=== PATIENT | female | born 1965 | race Caucasian/White ===

== ENCOUNTER 2022-09-25 14:03 | Outpatient (AMB) | payer OTHER, SELFPAY ==
--- NOTE | 2022-09-25 14:15 | MHC.OFFVIS ---
Intake Vital Signs 09/25/22 14:28 Height 5 ft 7 in Weight 197 lb 8 oz BMI 30.9 BP 164/74 H Blood Pressure Location Lt brachial Position Sitting Respiration 18 Pulse 80 Pulse Source Pulse Oximeter Pulse Oximetry (%) 97 Oxygen Delivery Method Room Air Intake Visit Reasons: Neck pain Allergies doxycycline Allergy (Intermediate, Verified 09/25/22 10:47) Stomach Upset ciprofloxacin [From Cipro] Adverse Reaction (Intermediate, Verified 09/25/22 10:47) Stomach Upset duloxetine [From Cymbalta] Adverse Reaction (Intermediate, Verified 09/25/22 10:47) Nausea hydromorphone [From Dilaudid] Adverse Reaction (Intermediate, Verified 09/25/22 10:47) Confusion morphine Adverse Reaction (Intermediate, Verified 09/25/22 10:47) Confusion HPI HPI Comments History of Present Illness Details Elodia is a very pleasant 56-year-old female who presents to the office today for evaluation and management of her chronic neck pain. She has been suffering with this pain for many years but was recently exacerbated by a fall about a month and a half ago. Pain in both sides of the neck though worse on the right with radiation down the right arm to the level of the forearm. She also reports weakness of the right arm and numbness, tingling, pins and needles. She reports the pain is exacerbated with movement and staying in one position for extended period of time. 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 She has chronic headaches and when her neck pain is exacerbated it will cause severe headaches. Patient has tried physical therapy in the past and found it was not helpful and her co-pay was cost prohibitive; she does continue with home exercise program as tolerated. She has also tried chiropractor and acupuncture without relief. She is currently taking tizanidine which she notices the benefit of improved sleep at night. She has diclofenac gel that she has been using without change in her pain and she is on chronic opioid therapy, Vicodin, that she takes for ulcerative colitis with no secondary benefit of neck pain improvement. Patient is using topical nonsteroidal anti-inflammatory medication and states that due to her ulcerative colitis she was advised by Gastroenterology to avoid oral nonsteroidal anti-inflammatory medications. Patient had an x-ray of her cervical spine 09/09/2022, results as per below. Patient also reports history of chronic lower back pain with radiation down the right leg. She states that she had MRI approximately 2 years ago and she used to receive injections at [facility]. She did not find any relief with the injections and ultimately unsatisfied with there treatment and did not go back. In terms of muscle damage condition is described as aching, hot, burning, tingling, pins and needles. Pain is negatively impacting her enjoyment of life, general activity, mood, normal work, recreational activities, sleep and mobility. Patient denies implantable devices, pacemaker, defibrillator. [facility] Medical History (Updated 09/25/22 @ 16:02 by Elizabeth Shen, LOCAL GOVERNMENT LEGISLATOR, CONTRACT ADMIN) Current mild episode of major depressive disorder without prior episode Fibromyalgia Hypercholesteremia Neck pain Nonalcoholic fatty liver Osteoarthritis Paresthesia Rosacea Ulcerative colitis Review of Systems Const All systems reviewed & are unremarkable except as noted in HPI and below Physical Exam General: awake, alert, oriented. Answers questions appropriately. Fully engaged in examination. Skin: warm, dry, intact without visible rashes or lesions. HEENT: Normocephalic. Conjuntivae clear without exudate. Sclera non-icteric. Hearing intact. Cardiac: External chest normal in appearance. Respiratory: No signs of trauma. No signs of respiratory distress. No cough, audible wheezing or stridor. Abdomen: without gross distension. Neurological: Oriented to person, place, time and situation. Thought process intact. No gait abnormalities appreciated. Psychiatric: Appropriate mood and affect. Good judgment and insight. Back/Spine/Pelvis Other: Cervical Spine: Visible inspection without gross abnormality Nontender to palpation over paraspinal muscles Nontender to palpation over cervical vertebrae Decreased cervical ROM in all planes Spurling compression test positive Elvey's tension test positive Right Lhermitte's test negative. BUE strength 5/5 DTR symmetrical and intact bilaterally. 2+ radial pulses. Results Reviewed Results Reviewed: 09/09/2022 Assessment & Plan Assessment & Plan (1) Cervical radiculopathy: Code(s): M54.12 - Radiculopathy, cervical region (2) Arthropathy of cervical facet joint: Code(s): M47.812 - Spondylosis without myelopathy or radiculopathy, cervical region Plan Elodia is a very pleasant 56 year old female who presented to the office today for evaluation and management of her chronic neck pain. History, physical exam and provocative testing most consistent with right cervical radiculopathy and cervical facet arthropathy. Will obtain MRI C/S without contrast for further evaluation, she prefers to go to [facility] d/t proximity to her home and work. Tens unit from [employer] ordered, patient was instructed on use. She has contact information for [employer] and will expect a call to schedule delivery. C/W muscle relaxers and topical NSAIDs as prescribed. C/W Home exercise program. Discussed options for treatment including diagnostic interventional testing, epidural steroid injections, peripheral nerve stimulation with Sprint, RFA and more permanent neuromodulation. Informational pamphlets provided. Patient will follow up here after MRI to review results. Plan for fluoroscopy guided diagnostic C4, C5, C6 MBBs with local anesthetic if MRI findings do not warrant neurosurgical evaluation. All questions and concerns have been answered and patient agrees with the plan. Follow up after MRI, sooner if needed. Orders: Orders MR cervical spine wo con Today M47.812 - Spondylosis without myelopathy or radiculopathy, cervical region, M54.12 - Radiculopathy, cervical region Coding Level of Care Code New Pt Level 4 (98638) Diagnoses Cervical radiculopathy M54.12 Arthropathy of cervical facet joint M47.812
[2022-09-25 14:28] VITALS: BP 164/74; PULSE 80; RESP 18; O2SAT 97; BMI 30.9
== END 2022-09-25 15:14 | disposition home or self-care (01) ==
PROVIDERS: PCP Internal Medicine; Visit Provider Registered Nurse Emergency
DX: M47.22 Other spondylosis with radiculopathy, cervical region (principal)
CPT/HCPCS: 99204

== ENCOUNTER → 2022-09-25 14:03 | Outpatient (BNVA) | payer OTHER, SELFPAY | PROVIDERS: PCP Internal Medicine; Visit Provider Registered Nurse Emergency ==

== ENCOUNTER 2022-11-20 10:44 | Outpatient (AMB) | payer OTHER, SELFPAY ==
[2022-11-20 10:52] VITALS: BP 136/76; PULSE 105; RESP 16; O2SAT 94; BMI 32.6
--- NOTE | 2022-11-20 10:52 | A.OFFVIS_ITS ---
Intake Vital Signs 3 11/20/22 10:52 Height 5 ft 7 in Weight 208 lb 2 oz BMI 32.6 BP 136/76 Blood Pressure Location Rt radial Position Sitting Respiration 16 Pulse 105 H Pulse Source Pulse Oximeter Pulse Oximetry (%) 94 Oxygen Delivery Method Room Air Intake Visit Reasons: FOLLOW UP AFTER MRI Allergies doxycycline Allergy (Intermediate, Verified 11/20/22 10:52) Stomach Upset ciprofloxacin [From Cipro] Adverse Reaction (Intermediate, Verified 11/20/22 10:52) Stomach Upset duloxetine [From Cymbalta] Adverse Reaction (Intermediate, Verified 11/20/22 10:52) Nausea hydromorphone [From Dilaudid] Adverse Reaction (Intermediate, Verified 11/20/22 10:52) Confusion morphine Adverse Reaction (Intermediate, Verified 11/20/22 10:52) Confusion HPI HPI Comments 2 History of Present Illness0 Details Elodia presents back to the office today for follow up after MRI. MRI reviewed with patient, results as per below. She continues to endorse bilateral neck pain, rated today as 6/10. Pain is worse on the right, but since last visit she is no longer experiencing RUE weakness, pain, numbness or tingling. She does report some headaches from the neck pain. Pain is improved some with TENS unit, but returns when she the stimulation is off. Tizanidine helps with sleep, but makes her drowsy so she does not take it during the day. Patient suffers from polyarthralgia, she has tried baclofen, gabapentin and lyrica in the past. She did not tolerate any of them. Her Director Of Channel Marketing retired, she is not currently under care of any specialist for this. Prior: Elodia is a very pleasant 56-year-old female who presents to the office today for evaluation and management of her chronic neck pain. She has been suffering with this pain for many years but was recently exacerbated by a fall about a month and a half ago. Pain in both sides of the neck though worse on the right with radiation down the right arm to the level of the forearm. She also reports weakness of the right arm and numbness, tingling, pins and needles. She reports the pain is exacerbated with movement and staying in one position for extended period of time. 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 She has chronic headaches and when her neck pain is exacerbated it will cause severe headaches. Patient has tried physical therapy in the past and found it was not helpful and her co-pay was cost prohibitive; she does continue with home exercise program as tolerated. She has also tried chiropractor and acupuncture without relief. She is currently taking tizanidine which she notices the benefit of improved sleep at night. She has diclofenac gel that she has been using without change in her pain and she is on chronic opioid therapy, Vicodin, that she takes for ulcerative colitis with no secondary benefit of neck pain improvement. Patient is using topical nonsteroidal anti-inflammatory medication and states that due to her ulcerative colitis she was advised by Gastroenterology to avoid oral nonsteroidal anti-inflammatory medications. Patient had an x-ray of her cervical spine 09/09/2022, results as per below. Patient also reports history of chronic lower back pain with radiation down the right leg. She states that she had MRI approximately 2 years ago and she used to receive injections at [facility]. She did not find any relief with the injections and ultimately unsatisfied with there treatment and did not go back. In terms of muscle damage condition is described as aching, hot, burning, tingling, pins and needles. Pain is negatively impacting her enjoyment of life, general activity, mood, normal work, recreational activities, sleep and mobility. Patient denies implantable devices, pacemaker, defibrillator. [facility] Medical History (Updated 11/20/22 @ 11:36 by Elizabeth Shen, PUBLIC SPEAKING TEACHER, PATCHER) Rosacea Osteoarthritis Nonalcoholic fatty liver Neck pain Ulcerative colitis Fibromyalgia Current mild episode of major depressive disorder without prior episode Hypercholesteremia Paresthesia Review of Systems Const All systems reviewed & are unremarkable except as noted in HPI and below Physical Exam Vital Signs: Last Vital Signs Pulse 105 H 11/20/22 10:52 Resp 16 11/20/22 10:52 BP 136/76 11/20/22 10:52 Pulse Ox 94 11/20/22 10:52 Oxygen Delivery Method Room Air 11/20/22 10:52 BMI result Body Mass Index 32.6 General: awake, alert, oriented. Answers questions appropriately. Fully engaged in examination. Skin: warm, dry, intact without visible rashes or lesions. HEENT: Normocephalic. Hearing intact. Cardiac: External chest normal in appearance. Respiratory: No cough, audible wheezing or stridor. Abdomen: without gross distension. Neurological: Oriented to person, place, time and situation. Thought process intact. Psychiatric: Appropriate mood and affect. Good judgment and insight. Back/Spine/Pelvis Other: Cervical Spine: Visible inspection without gross abnormality Nontender to palpation over paraspinal muscles Nontender to palpation over cervical vertebrae Decreased cervical ROM in all planes Spurling compression test positive Lhermitte's test negative. BUE strength 5/5 DTR symmetrical and intact bilaterally. 2+ radial pulses. Results Reviewed Results Reviewed: 10/05/22 Assessment & Plan Assessment & Plan (1) Polyarthralgia: Code(s): M25.50 - Pain in unspecified joint (2) Cervical radiculopathy: Code(s): M54.12 - Radiculopathy, cervical region (3) Arthropathy of cervical facet joint: Code(s): M47.812 - Spondylosis without myelopathy or radiculopathy, cervical region Plan Elodia is a very pleasant 56 year old female who presented back to the office today for follow up bilateral neck pain. Patient not currently reporting symptoms of cervical radiculopathy, her MRI was reviewed with her today during the visit. Patient has exhausted conservative therapy including NSAIDS, topical creams, PT, HEP, muscle relaxers and TENS unit. Will schedule for Fluoroscopy guided bilateral diagnostic C4-C5-C6 MBBs with local anesthetic. Patient was given pamphlets for Sprint PNS for review, pending positive results of MBBS. Referral was placed for Rheumatology, patient with polyarthralgia not currently under care after her previous Director Of Channel Marketing retired. Patient will follow up here after injections, sooner if needed. All questions were answered, patient agrees with the plan. Orders: Referrals 2 Rheumatology Referral M25.50 - Pain in unspecified joint Coding Level of Care Code Est Pt Level 3 (00802) Diagnoses Polyarthralgia M25.50 Cervical radiculopathy M54.12 Arthropathy of cervical facet joint M47.812
== END 2022-11-20 11:37 | disposition home or self-care (01) ==
PROVIDERS: PCP Internal Medicine; Visit Provider Registered Nurse Emergency
DX: M25.50 Pain in unspecified joint (principal); M54.12 Radiculopathy, cervical region; M47.812 Spondylosis without myelopathy or radiculopathy, cervical region
CPT/HCPCS: 99213

== ENCOUNTER → 2022-11-20 10:44 | Outpatient (BNVA) | payer OTHER, SELFPAY | PROVIDERS: PCP Internal Medicine; Visit Provider Registered Nurse Emergency ==

== ENCOUNTER 2022-12-24 06:13 | Outpatient (REF) | payer OTHER, SELFPAY ==
--- NOTE | ~2022-12-24 | FL_ITS ---
EXAMINATION: XR FLUOROSCOPY WITH IMAGES CLINICAL INFORMATION: Spondylosis without myelopathy or radiculopathy, cervical region. Bilateral cervical spine injections. COMPARISON: None available. TECHNIQUE: Fluoroscopy Supervised By: Dr. Corky Wall. Fluoroscopy Time: 0.7 minutes. Cumulative Dose: 10.7 mGy. DAP: 0.0987 Gycm2. Images: 6. FINDINGS: Images demonstrate needle placement and contrast injection adjacent to 3 consecutive bilateral lateral cervical vertebrae FL/FL guidance in treatment room IMPRESSION: Fluoroscopy guidance for pain management procedure
== END 2022-12-24 06:14 | disposition home or self-care (01) ==
LOC: CF 06:13
PROVIDERS: Visit Provider Anesthesiology
DX: M47.812 Spondylosis without myelopathy or radiculopathy, cervical region (principal); M25.50 Pain in unspecified joint; M54.12 Radiculopathy, cervical region
CPT/HCPCS: 64490; 64491; J2795; Q9967

== ENCOUNTER 2022-12-24 08:56 | Outpatient (AMB) | payer OTHER, SELFPAY ==
--- NOTE | 2022-12-24 09:45 | A.OFFVIS_ITS ---
Intake Vital Signs 12/24/22 09:56 12/24/22 09:56 Height 5 ft 7 in 5 ft 7 in Weight 208 lb 208 lb BMI 32.6 32.6 BP 130/72 120/76 Blood Pressure Location Lt brachial Lt brachial Position Sitting Sitting Respiration 16 16 Pulse 90 78 Pulse Source Pulse Oximeter Pulse Oximeter Pulse Oximetry (%) 94 96 Oxygen Delivery Method Room Air Room Air Comment pre-op post-op Intake Visit Reasons: BILAT DX C4-C5-C6 MBB/LOCAL Allergies doxycycline Allergy (Intermediate, Verified 12/24/22 10:19) Stomach Upset ciprofloxacin [From Cipro] Adverse Reaction (Intermediate, Verified 12/24/22 10:19) Stomach Upset duloxetine [From Cymbalta] Adverse Reaction (Intermediate, Verified 12/24/22 10:19) Nausea hydromorphone [From Dilaudid] Adverse Reaction (Intermediate, Verified 12/24/22 10:19) Confusion morphine Adverse Reaction (Intermediate, Verified 12/24/22 10:19) Confusion [facility] Medical History (Updated 11/20/22 @ 11:36 by Elizabeth Shen APRN, FOOD AND NUTRITION TEACHER) Rosacea Osteoarthritis Nonalcoholic fatty liver Neck pain Ulcerative colitis Fibromyalgia Current mild episode of major depressive disorder without prior episode Hypercholesteremia Paresthesia Surgical History (Updated 12/18/22 @ 15:27 by ZEUS Acosta) History of surgery Family History (Updated 12/18/22 @ 15:29 by ZEUS Acosta) Other Hyperlipidemia, unspecified Physical Exam Vital Signs: Last Vital Signs Pulse 78 12/24/22 09:56 Resp 16 12/24/22 09:56 BP 120/76 12/24/22 09:56 Pulse Ox 96 12/24/22 09:56 Oxygen Delivery Method Room Air 12/24/22 09:56 BMI result Body Mass Index 32.6 Results Reviewed Results Reviewed: 12/24/22 09:25 Lidocaine HCl 2 % MPF [Xylocaine 2 % MPF] 5 ml .ROUTE .STK-MED ONE ROPivacaine HCl/PF 0.5% [Naropin 0.5%] 150 mg .ROUTE .STK-MED ONE iohexoL 300 MG/ML 50 ML [Omnipaque 300 MG/ML] 50 ml .ROUTE .STK-MED ONE Assessment & Plan Assessment & Plan (1) Polyarthralgia: Code(s): M25.50 - Pain in unspecified joint (2) Cervical radiculopathy: Code(s): M54.12 - Radiculopathy, cervical region (3) Arthropathy of cervical facet joint: Code(s): M47.812 - Spondylosis without myelopathy or radiculopathy, cervical region Plan: Bilateral diagnostic C4-C4- C6 medial branch block. ?Informed consent was explained to the patient. All questions were explained and answered.? The patient was taken inside the operating room where she was positioned prone on the operating table. Time-out was performed delineating correct site, side, the nature of the procedure, patient's allergy, preoperative antibiotic if needed.? All operating room staff was participating in OR time-out procedure. The back of the neck and upper back were prepped with ChloraPrep and draped with sterile towels.? Sterilely draped C-arm was brought over the operating field and sq picture of? C4-C5-C6 vertebrae were delineated on the screen.? Points of interest were delineated as lateral masses bilaterally of the vertebrae as above. The waste of each lateral mass was chosen as the target of the tip of the needles on AP view and lateral view was used as a safety view for the tips of the needles position.?? The projections of the point of interest to the skin were injected with the small amount of local anesthetic lidocaine 2% 1-1.5 cc.? After that 22 gauge 3and 1/2 inch? spinal needles were driven to the point of interest in tunnel vision fashion. After needles gently contacted the bone at the point of interests the needle was injected with small amount of the contrast. The injections did not demonstrate intravascular or intrathecal spread.. After that ropivacaine 0.5%-1cc was injected into each location of the needles. ? Upon completion of the injections the needles were removed and sterile dressings were applied, the patient was a taken? outside of the operating room to recovery room where she recovered uneventfully. Ade Clifton is a very pleasant 56 year old female who presented back to the office today for follow up bilateral neck pain. Patient not currently reporting symptoms of cervical radiculopathy, her MRI was reviewed with her today during the visit. Patient has exhausted conservative therapy including NSAIDS, topical creams, PT, HEP, muscle relaxers and TENS unit. Will schedule for Fluoroscopy guided bilateral diagnostic C4-C5-C6 MBBs with local anesthetic. Patient was given pamphlets for Sprint PNS for review, pending positive results of MBBS. Referral was placed for Rheumatology, patient with polyarthralgia not currently under care after her previous Doctor Of Dental Surgery retired. Patient will follow up here after injections, sooner if needed. All questions were answered, patient agrees with the plan. Orders: Orders FL guidance in treatment room Today M47.812 - Spondylosis without myelopathy or radiculopathy, cervical region Coding Level of Care Code Procedure Only Diagnoses Polyarthralgia M25.50 Cervical radiculopathy M54.12 Arthropathy of cervical facet joint M47.812
[2022-12-24 09:56] VITALS: BP 120/76; BP 130/72; PULSE 78; PULSE 90; RESP 16; O2SAT 94; O2SAT 96; BMI 32.6
== END 2022-12-24 10:09 | disposition home or self-care (01) ==
LOC: HO.PMCPRC 08:56
PROVIDERS: PCP Internal Medicine; Visit Provider Anesthesiology
DX: M47.812 Spondylosis without myelopathy or radiculopathy, cervical region (principal)
CPT/HCPCS: 64490; 64491

== ENCOUNTER 2022-12-25 10:03 | Outpatient (AMB) | payer OTHER, SELFPAY ==
--- NOTE | 2022-12-25 10:15 | MHC.OFFVIS ---
Intake Vital Signs 12/25/22 10:16 Height 5 ft 7 in Weight 214 lb 1.102 oz BMI 33.5 BP 126/64 Blood Pressure Location Rt brachial Position Sitting Pulse 89 Pulse Source Pulse Oximeter Temp 97.5 F Temp Source Skin Pulse Oximetry (%) 96 Oxygen Delivery Method Room Air Intake Visit Reasons: Joint Pain Intake Note: New patient internally referred to us by pain management for joint pain. Former rheumatology patient of [facility]. Seen once a few years ago. Received neck injections yesterday. 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 Elodia Ulloa is a 56 yoF who presents today for evaluation of Joint pain which has worsened over the last 2 years. She has been having lower back, neck and foot pain for the better part of 2 years. Over the years she has received cortisone injections to both wrists, right elbow for tendonitis, left hip, lower back and cervical spine. The relief from these injections vary in duration. The lower back and cervical spine is her most painful areas and nothing has helped to date. She has a known history of Ulcerative Colitis for over 20 years and takes Sulfasalazine. She had an endoscopy during which crohn's may have been and incidental finding but this was not confirmed. She usually sees GI once per year for her UC but has had an increased $ of visits to within the last year due increased flares. The patient endorses morning stiffness that lasts at least an 1 hour to start resolving. Her pain and fatigue worsens as the day progresses. She takes Tylenol daily and Percocet an average of every other day for the last 3 to 4 years. She takes the percoset at night and wakes up with the pain in the morning. Patient denies Raynaud's phenomenon, butterfly rash on face or other rashes; denies photosensitivity - getting sick or developing a rash from being out in the sun; denies blood or froth in urine; patient denies hx of SOB, chest pain. Patient denies hx of Carditis or Pleuritis. Patient denies any history of DVT/PE. The patient reports never have had to take aspirin or a blood thinner during successful pregnancies. Denies fevers, unexplained weight-loss or weight-gain Denies: thinning hair or hair loss, hx of rashes; Denies: red burning eyes needing steroids to treat; dry mouth, mouth sores or ulcers; nose bleed; ringing in the ear. She does have dry eyes and uses daily eyedrops. Denies abdominal pain, blood or mucous in stool; nausea, vomiting and diarrhea , difficulty swallowing, heartburn. Malignancy screening are up to date: Denies personal hx of cancer [facility] : [facility] Medical History (Updated 12/25/22 @ 14:11 [facility] Osteoarthritis involving multiple joints on both sides of body DDD (degenerative disc disease), cervical Osteoporosis screening History of ulcerative colitis Inflammatory bowel arthritis Rosacea Osteoarthritis Nonalcoholic fatty liver Neck pain Ulcerative colitis Fibromyalgia Current mild episode of major depressive disorder without prior episode Hypercholesteremia Paresthesia Surgical History History of surgery Family History (Updated 12/25/22 @ 10:20 by ZEUS Acosta) Mother Arthritis Other Hyperlipidemia, unspecified Social History (Updated 12/25/22 @ 10:20 by ZEUS Acosta) Household Members: Spouse Household Members Other:: cat Alcohol intake: never Patient Tobacco Use Status: Never used Tobacco Current occupational status: employed 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 External ear normal, canal clear and tympanic membrane normal. NOSE/SINUS:? Airflow through both nares, no nasal discharge, no bleeding THROAT:? Oral mucosa moist, no ulcerations NECK:? No thyromegaly or masses, no adenopathy, trachea midline. HEART:? Regular rhythm, S1-S2 heard, mild systolic murmurs. no rubs or gallops. LUNG:? Clear to percussion and auscultation ABD:? Normal bowel sounds, no organomegaly, masses or tenderness. EXTREMITIES:? No edema, no calf tenderness, normal peripheral pulses. NEURO:? Oriented and alert x3.? No focal weakness.? Reflexes symmetric.? Gait normal. SKIN:? There are no skin lesions evident. No objective signs of Raynaud's phenomenon. Patient describes scalp gets itchy with occasional lesions and she was given topical creams to use. No dryness or lesions observed on PE JOINT EXAM: Cervical Spine:.? Full range of motion with pain; no tenderness; cervical hump Thoracic Spine:.? No scoliosis.? No tenderness on palpation. Lumbar Spine:.? Alignment normal.? Full range of motion without pain, mild righ side tenderness. Chest Wall:.? No tenderness, swelling, increased warmth or erythema. Hands:.? Normal pain-free range of motion without tenderness, swelling, increased warmth or erythema. Able to make a full fist and has a good cassandra architect strength but stiff perr patient. Mild tenderness DIP joints all with moderate size herberden nodes. mild redness to left 3rd DIP. Wrists:.? Normal pain-free range of motion without tenderness, swelling, increased warmth or erythema. Elbows:. Normal pain-free range of motion without, swelling, increased warmth or erythema. Moderate tenderness to bilateral lateral epicondyle on palpation Shoulders:.?? Full range of motion without pain. No tenderness, weakness, swelling, increased warmth or erythema. Hips:.? Full range of motion with mild pain and tightness to groin and outer hip . Hip bursa:.? Bilateral tenderness left greater than right Knees:.?? Normal pain-free range of motion without tenderness, swelling, increased warmth or erythema.? There is no effusion but there crepitation at patella Ankles:.? Normal pain-free range of motion without tenderness, swelling, increased warmth or erythema. Tenderness to bilateral Achilles tendon. Feet:.? Normal pain-free range of motion without tenderness, swelling, increased warmth or erythema. plantar tenderness Tender points:? No tenderness to digital palpation at the occiput, trapezius, second rib, knees, greater trochanter and gluteal area bilaterally. ? Results Reviewed Results Reviewed: Reviewed MRI of Cervical Spine done 12/06/2022 Multilevel DDD, with bulging and encroachment. Assessment & Plan Assessment & Plan (1) Polyarthralgia: Code(s): M25.50 - Pain in unspecified joint (2) Inflammatory bowel arthritis: Comment: UC - on Sulfasalazine for over 10 years Code(s): K63.9 - Disease of intestine, unspecified; M07.60 - Enteropathic arthropathies, unspecified site (3) History of ulcerative colitis: Comment: UC - on Sulfasalazine for over 10 years Code(s): Z87.19 - Personal history of other diseases of the digestive system (4) DDD (degenerative disc disease), cervical: Code(s): M50.30 - Other cervical disc degeneration, unspecified cervical region (5) Osteoarthritis involving multiple joints on both sides of body: Code(s): M15.9 - Polyosteoarthritis, unspecified (6) Osteoporosis screening: Code(s): Z13.820 - Encounter for screening for osteoporosis Plan Ms. Elodia Ulloa is a 56 yoF who presents today for evaluation of Joint pain which has worsened over the last 2 years. She regularly has lower back, neck and heel pain for the better part of 2 years. Over the years she has received cortisone injections to both wrists, right elbow for tendonitis, left hip, lower back and cervical spine. The relief from these injections vary in duration. The lower back and cervical spine and heels are her most painful areas and nothing has helped to date. #Polyathralgia/IB/UC related Arthritis: Upon initial review of her history, diagnostics and PE, I suspect there is an inflammatory arthritis that is related to her IBD/UC, given her collective experiences of prolonged morning stiffness per HPI, chronic lower back pain, frequent bouts of tendonitis (enthesopathy), chronic achilles tenderness, and chronically tender DIP joints, I think it is reasonable to pursue this as an inflammatory arthritis and start treatment with an immunomodulator such as Humira or Simponi. Additionally. these medication can also improve treatment for the UC since it is possible that current treatment many not be adequate, given that she has had increase # of flares within the last year. #OA/DDD: There is cervical DDD per MRI and Herberden nodes seen on PE. Even though there is some osteoarthritis (OA) and Degenerative Disc Disease (DDD) are present, the inflammatory component (which relates to IBD arthritis) can create an added layer of increased discomfort. Additionally, the medications for Primary OA will not address the pathology of IBD related arthritis. It is also reasonable to assume that, given her pain, Sulfasalazine is not adequately providing relief for the joints. We will obtain labs and Xrays for hands/Wrists and feet/Ankles for further evaluation. #Osteoporosis Screening: Bone thinning can accelerate in the presence of an inflammatory arthritis. Ms. Clifton takes Calcium and a MultiVit. We will discuss Vit D and Bone Density scans at next visit. Patient will return in 2 weeks. Orders: Orders XR hand wrist LT Today K63.9 - Disease of intestine, unspecified, M07.60 - Enteropathic arthropathies, unspecified site, M25.50 - Pain in unspecified joint XR ankle RT 2V Today K63.9 - Disease of intestine, unspecified, M07.60 - Enteropathic arthropathies, unspecified site, M25.50 - Pain in unspecified joint XR ankle LT 2V Today K63.9 - Disease of intestine, unspecified, M07.60 - Enteropathic arthropathies, unspecified site, M25.50 - Pain in unspecified joint XR sacroiliac joint 1-2V Today K63.9 - Disease of intestine, unspecified, M07.60 - Enteropathic arthropathies, unspecified site, M25.50 - Pain in unspecified joint Erythrocyte Sedimentation Rate Today K63.9 - Disease of intestine, unspecified, M07.60 - Enteropathic arthropathies, unspecified site, M25.50 - Pain in unspecified joint, Z87.19 - Personal history of other diseases of the digestive system Comprehensive Met. Panel Today K63.9 - Disease of intestine, unspecified, M07.60 - Enteropathic arthropathies, unspecified site, M25.50 - Pain in unspecified joint, Z87.19 - Personal history of other diseases of the digestive system Hepatitis A,B,C Profile Today K63.9 - Disease of intestine, unspecified, M07.60 - Enteropathic arthropathies, unspecified site, M25.50 - Pain in unspecified joint, Z87.19 - Personal history of other diseases of the digestive system Sjogren's Antibodies Today K63.9 - Disease of intestine, unspecified, M07.60 - Enteropathic arthropathies, unspecified site, M25.50 - Pain in unspecified joint, Z87.19 - Personal history of other diseases of the digestive system Rheumatoid Factor Today K63.9 - Disease of intestine, unspecified, M07.60 - Enteropathic arthropathies, unspecified site, M25.50 - Pain in unspecified joint, Z87.19 - Personal history of other diseases of the digestive system XR hand wrist RT Today K63.9 - Disease of intestine, unspecified, M07.60 - Enteropathic arthropathies, unspecified site, M25.50 - Pain in unspecified joint XR lumbar spine 2-3V Today K63.9 - Disease of intestine, unspecified, M07.60 - Enteropathic arthropathies, unspecified site, M25.50 - Pain in unspecified joint C Reactive Protein Today K63.9 - Disease of intestine, unspecified, M07.60 - Enteropathic arthropathies, unspecified site, M25.50 - Pain in unspecified joint, Z87.19 - Personal history of other diseases of the digestive system FAVIO Reflex Titer and Pattern Today K63.9 - Disease of intestine, unspecified, M07.60 - Enteropathic arthropathies, unspecified site, M25.50 - Pain in unspecified joint, Z87.19 - Personal history of other diseases of the digestive system Complete Blood Count Auto Diff Today K63.9 - Disease of intestine, unspecified, M07.60 - Enteropathic arthropathies, unspecified site, M25.50 - Pain in unspecified joint, Z87.19 - Personal history of other diseases of the digestive system Vitamin D 25-OH (D2 and D3) Today K63.9 - Disease of intestine, unspecified, M07.60 - Enteropathic arthropathies, unspecified site, M25.50 - Pain in unspecified joint, Z87.19 - Personal history of other diseases of the digestive system Anti Extractable Nuclear Ag Today K63.9 - Disease of intestine, unspecified, M07.60 - Enteropathic arthropathies, unspecified site, M25.50 - Pain in unspecified joint, Z87.19 - Personal history of other diseases of the digestive system Cyclic Citrullinated Peptide Today K63.9 - Disease of intestine, unspecified, M07.60 - Enteropathic arthropathies, unspecified site, M25.50 - Pain in unspecified joint, Z87.19 - Personal history of other diseases of the digestive system Coding Level of Care Code New Pt Level 5 (35504) Diagnoses Polyarthralgia M25.50 Inflammatory bowel arthritis K63.9; M07.60 History of ulcerative colitis Z87.19 DDD (degenerative disc disease), cervical M50.30 Osteoarthritis involving multiple joints on both sides of body M15.9 Osteoporosis screening Z13.820
[2022-12-25 10:16] VITALS: BP 126/64; PULSE 89; TEMP 36.4; O2SAT 96; BMI 33.5
== END 2022-12-25 11:12 | disposition home or self-care (01) ==
PROVIDERS: PCP Internal Medicine; Visit Provider Nurse Practitioner Family
DX: M15.8 Other polyosteoarthritis (principal); M25.50 Pain in unspecified joint; M07.69 Enteropathic arthropathies, multiple sites; M50.30 Other cervical disc degeneration, unspecified cervical region; K63.89 Other specified diseases of intestine; Z87.19 Personal history of other diseases of the digestive system; Z13.820 Encounter for screening for osteoporosis
CPT/HCPCS: 99204

== ENCOUNTER 2022-12-25 10:03 | Outpatient (REF) | payer OTHER, SELFPAY ==
--- NOTE | ~2022-12-25 | XR_ITS ---
EXAMINATION: XR LUMBOSACRAL SPINE CLINICAL INFORMATION: Pain in unspecified joint COMPARISON: None available. TECHNIQUE: Three views of the lumbosacral spine. FINDINGS: There are small riblets extending off the T12 vertebral body. There is a transitional lumbosacral vertebral body with sacralization on the right and for the purposes study will be called L5. There is mild disc space narrowing with marginal osteophyte formation at L2-L3. The L5-S1 disc space is narrow. There is mild retrolisthesis of L4 with respect to L5. There is degenerative facet joint disease at L5-S1. There is nonspecific cystic change in the facet of L5. XR/XR lumbar spine 2-3V IMPRESSION: 1. Transitional lumbosacral vertebral body. 2. Degenerative disc disease at L2-L3 and probably L5-S1 3. Mild retrolisthesis of L4 with respect to L5. 4. Degenerative facet joint disease at L5-S1.
--- NOTE | ~2022-12-25 | XR_ITS ---
EXAMINATION: XR SACROILIAC JOINTS CLINICAL INFORMATION: Pain in unspecified joint COMPARISON: None available. TECHNIQUE: 3 views of the sacroiliac joints FINDINGS: The bones are intact. No fracture. Alignment is anatomic. There are small marginal osteophytes at the inferior aspect of the left sacroiliac joint, otherwise the sacroiliac joint spaces are well-maintained without erosions or surrounding sclerosis. The cartilage spaces of the hips is well-maintained. There is mild degenerative change of the pubic symphysis. Incidental note is made of transitional lumbosacral vertebral body XR/XR sacroiliac joint 1-2V IMPRESSION: No significant abnormality of the sacroiliac joints.
--- NOTE | ~2022-12-25 | XR_ITS ---
EXAMINATION: XR ANKLE, LEFT CLINICAL INFORMATION: Pain in unspecified joint Question enthesopathy COMPARISON: None available. TECHNIQUE: AP, lateral, and mortise views of the left ankle. FINDINGS: No fracture. Alignment is anatomic. No erosions. Joint spaces are maintained. Small Achilles enthesophyte is noted. XR/XR ankle LT 2V IMPRESSION: Small Achilles enthesophyte.
--- NOTE | ~2022-12-25 | XR_ITS ---
EXAMINATION: XR WRIST, LEFT XR HAND, LEFT CLINICAL INFORMATION: Pain in unspecified joint COMPARISON: None available. TECHNIQUE: PA, lateral, and oblique views of the left wrist and PA, lateral, and oblique views of the left hand. Dedicated left navicular view. FINDINGS: LEFT WRIST: The bones are intact. No fracture. There are a few nonspecific cystic changes in the trapezoid and capitate. Alignment is anatomic. Joint spaces are maintained. No erosions or soft tissue calcifications. LEFT HAND: The bones are intact. No fracture. Alignment is anatomic. Joint spaces are maintained. No erosions or soft tissue calcifications. XR/XR hand wrist LT IMPRESSION: No significant bony abnormality.
--- NOTE | ~2022-12-25 | XR_ITS ---
EXAMINATION: XR ANKLE, RIGHT CLINICAL INFORMATION: Pain in unspecified joint Questioning enthesopathy. COMPARISON: None available. TECHNIQUE: AP, lateral, and mortise views of the right ankle. FINDINGS: No fracture. Alignment is anatomic. No erosions. Joint spaces are maintained. Tiny Achilles enthesophyte is noted. XR/XR ankle RT 2V IMPRESSION: Tiny Achilles enthesophyte.
--- NOTE | ~2022-12-25 | XR_ITS ---
EXAMINATION: XR WRIST, RIGHT XR HAND, RIGHT CLINICAL INFORMATION: Pain in unspecified joint COMPARISON: None available. TECHNIQUE: PA, lateral, and oblique views of the right wrist and PA, lateral, and oblique views of the right hand. Dedicated navicular view FINDINGS: RIGHT WRIST: The bones are intact. No fracture. Alignment is anatomic. Joint spaces are maintained. No erosions or soft tissue calcifications. RIGHT HAND: The bones are intact. No fracture. Alignment is anatomic. Mild degenerative change of the DIP joints of the index and middle finger. No erosions or soft tissue calcifications. XR/XR hand wrist RT IMPRESSION: Mild degenerative change of the DIP joints of the index and middle finger.
== END 2022-12-25 10:04 | disposition home or self-care (01) ==
LOC: HO.XRAY 10:03
PROVIDERS: PCP Internal Medicine; Visit Provider Nurse Practitioner Family
DX: M07.60 Enteropathic arthropathies, unspecified site (principal); M50.30 Other cervical disc degeneration, unspecified cervical region; M15.9 Polyosteoarthritis, unspecified; K63.9 Disease of intestine, unspecified; M79.642 Pain in left hand; M79.641 Pain in right hand; M25.572 Pain in left ankle and joints of left foot; M25.571 Pain in right ankle and joints of right foot; M25.532 Pain in left wrist; M25.531 Pain in right wrist
CPT/HCPCS: 72100; 72200; 73110; 73130; 73600

== ENCOUNTER 2022-12-25 11:18 | Outpatient (REF) | payer OTHER, SELFPAY ==
[2022-12-25 13:15] LABS: MANUAL DIFF FLAG NO
[2022-12-25 13:21] LABS: Basophils Percent Auto 0.6 % (0-2); Eosinophils Absolute Auto 0.1 X10*3/uL (0.0-0.4); Eosinophils Percent Auto 1.8 % (0-4); Hematocrit 41.9 % (37.0-47.0); Hemoglobin 13.3 g/dl (12.0-16.0); Imm Gran Abs Auto 0.02 X10*3/uL (0.00-0.03); Imm Gran Pct Auto 0.4 % (0.0-0.4); Lymphocytes Absolute Auto 1.1 X10*3/uL (1.2-4.9); Lymphocytes Percent Auto 22.2 % (20-40); Mean Corpuscular HGB Conc 31.7 g/dl (31.0-35.0); Mean Corpuscular Hemoglobin 31.8 pg (27.0-33.0); Mean Corpuscular Volume 100.2 fL (80.0-98.0); Monocytes Absolute Auto 0.5 X10*3/uL (0.1-1.2); Monocytes Percent Auto 9.2 % (2-11); Neutrophils Absolute Auto 3.4 x10*3/uL (2.0-8.3); Neutrophils Percent Auto 65.8 % (45-73); Platelet Count 379 X10*3/uL (160-400); Red Blood Count 4.18 X10*6/uL (4.20-5.50); Red Cell Distribution Width 12.9 % (11.0-16.0); White Blood Count 5.1 X10*3/uL (4.8-10.8)
[2022-12-25 13:30] LABS: Rheumatoid Factor < 13.0 IU/mL (<15.0)
[2022-12-25 13:38] LABS: Alanine Aminotransferase 34 U/L (0-31); Albumin Level 4.4 g/dL (3.5-5.0); Alkaline Phosphatase 66 U/L (39-117); Anion Gap 13 (12-20); Aspartate Amino Transferase 26 U/L (5-31); Bilirubin Total 0.2 mg/dL (0.0-1.0); Blood Urea Nitrogen 17 mg/dL (9-16); C Reactive Protein 0.89 mg/dL (< or = 0.50); Calcium 9.7 mg/dL (8.4-10.2); Carbon Dioxide 24 mmol/L (22-29); Chloride 109 mmol/L (96-108); Estimated Glomerular Filt Rate > 60; Glucose Random 101 mg/dL (60-115); Potassium 4.1 mmol/L (3.3-5.1); Sodium 142 mmol/L (135-145); Total Protein 7.4 g/dL (6.5-8.0)
[2022-12-25 13:54] LABS: HBS Num1 5.24 mIU/mL (0-7.99); HBc Num1 0.12 S/CO (0.00-0.79); Hepatitis A Antibody IgM 0.18 Index (0-0.79); Hepatitis B Core Antibody Nonreactive (Nonreactive); Hepatitis B Surface Antigen Negative (Negative); ~HepC Num1 0.08 S/CO (0.00-0.79); ~Hepatitis A Antibody IgM Nonreactive (Nonreactive); ~Hepatitis B Surface Antibody NONREACTIVE (Nonreactive); ~Hepatitis C Antibody Nonreactive (Nonreactive)
[2022-12-25 13:58] LABS: Erythrocyte Sedimentation Rate 11 MM/HR (0-20)
[2022-12-26 13:09] LABS: Cyclic Citrullinated Peptide <16 UNITS
[2022-12-27 13:14] LABS: Antibody to SS-A Antigen <1.0 NEG AI (<1.0 NEG); Antibody to SS-B Antigen <1.0 NEG AI (<1.0 NEG); SM/Ribonucleoprotein Ab <1.0 NEG AI (<1.0 NEG); Smith Protein <1.0 NEG AI (<1.0 NEG)
[2022-12-29 15:24] LABS: Vitamin D 25-OH, D2 6 ng/mL; Vitamin D 25-OH, D3 24 ng/mL; Vitamin D 25-OH, Total 30 ng/mL (30-100)
[2022-12-30 12:13] LABS: Anti Nuclear Antibody Screen NEGATIVE (NEGATIVE)
== END 2022-12-25 11:19 | disposition home or self-care (01) ==
LOC: HO.10HDL 11:18
PROVIDERS: Visit Provider Nurse Practitioner Family
DX: K63.9 Disease of intestine, unspecified (principal); M07.60 Enteropathic arthropathies, unspecified site; M25.50 Pain in unspecified joint; Z87.19 Personal history of other diseases of the digestive system
CPT/HCPCS: 36415; 80053; 82306; 85025; 85652; 86038; 86140; 86200; 86235; 86431; 86704; 86706; 86709; 86803; 87340

== ENCOUNTER 2023-01-01 10:55 | Outpatient (AMB) | payer OTHER, SELFPAY ==
--- NOTE | 2023-01-01 11:02 | A.OFFVIS_ITS ---
Intake Vital Signs 3 01/01/23 11:03 Height 5 ft 7 in Weight 214 lb BMI 33.5 BP 175/70 H Blood Pressure Location Lt brachial Position Sitting Respiration 16 Pulse 84 Pulse Source Pulse Oximeter Pulse Oximetry (%) 97 Oxygen Delivery Method Room Air Intake Visit Reasons: BILAT DX C4-C5-C6 MBB 12/24/22 Allergies doxycycline Allergy (Intermediate, Verified 01/01/23 11:04) Stomach Upset ciprofloxacin [From Cipro] Adverse Reaction (Intermediate, Verified 01/01/23 11:04) Stomach Upset duloxetine [From Cymbalta] Adverse Reaction (Intermediate, Verified 01/01/23 11:04) Nausea hydromorphone [From Dilaudid] Adverse Reaction (Intermediate, Verified 01/01/23 11:04) Confusion morphine Adverse Reaction (Intermediate, Verified 01/01/23 11:04) Confusion HPI HPI Comments 2 History of Present Illness0 Details Elodia presents back to the office in today for follow-up 1 week status post Fluoroscopy guided bilateral diagnostic C4-C5-C6 MBBs with local anesthetic. Patient denies any improvement in her pain in the hours following the diagnostic injections. She does report that her chronic headaches resolved for approximately 1 hour but then returned with a vengeance . The injections were very painful and she does not want to attempt again. She was evaluated last week by rheumatology. She had labs completed with a plan to start her on treatment for inflammatory arthritis. She is hoping that this medication will help her with the all-over pain including neck pain and headaches. Prior: Elodia presents back to the office today for follow up after MRI. MRI reviewed with patient, results as per below. She continues to endorse bilateral neck pain, rated today as 6/10. Pain is worse on the right, but since last visit she is no longer experiencing RUE weakness, pain, numbness or tingling. She does report some headaches from the neck pain. Pain is improved some with TENS unit, but returns when she the stimulation is off. Tizanidine helps with sleep, but makes her drowsy so she does not take it during the day. Patient suffers from polyarthralgia, she has tried baclofen, gabapentin and lyrica in the past. She did not tolerate any of them. Her Manager Of [employer] retired, she is not currently under care of any specialist for this. Prior: Elodia is a very pleasant 56-year-old female who presents to the office today for evaluation and management of her chronic neck pain. She has been suffering with this pain for many years but was recently exacerbated by a fall about a month and a half ago. Pain in both sides of the neck though worse on the right with radiation down the right arm to the level of the forearm. She also reports weakness of the right arm and numbness, tingling, pins and needles. She reports the pain is exacerbated with movement and staying in one position for extended period of time. 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 She has chronic headaches and when her neck pain is exacerbated it will cause severe headaches. Patient has tried physical therapy in the past and found it was not helpful and her co-pay was cost prohibitive; she does continue with home exercise program as tolerated. She has also tried chiropractor and acupuncture without relief. She is currently taking tizanidine which she notices the benefit of improved sleep at night. She has diclofenac gel that she has been using without change in her pain and she is on chronic opioid therapy, Vicodin, that she takes for ulcerative colitis with no secondary benefit of neck pain improvement. Patient is using topical nonsteroidal anti-inflammatory medication and states that due to her ulcerative colitis she was advised by Gastroenterology to avoid oral nonsteroidal anti-inflammatory medications. Patient had an x-ray of her cervical spine 09/09/2022, results as per below. Patient also reports history of chronic lower back pain with radiation down the right leg. She states that she had MRI approximately 2 years ago and she used to receive injections at [facility]. She did not find any relief with the injections and ultimately unsatisfied with there treatment and did not go back. In terms of muscle damage condition is described as aching, hot, burning, tingling, pins and needles. Pain is negatively impacting her enjoyment of life, general activity, mood, normal work, recreational activities, sleep and mobility. Patient denies implantable devices, pacemaker, defibrillator. [facility] Medical History (Updated 12/25/22 @ 14:11 by UYEN Romero) Osteoarthritis involving multiple joints on both sides of body DDD (degenerative disc disease), cervical Osteoporosis screening History of ulcerative colitis Inflammatory bowel arthritis Rosacea Osteoarthritis Nonalcoholic fatty liver Neck pain Ulcerative colitis Fibromyalgia Current mild episode of major depressive disorder without prior episode Hypercholesteremia Paresthesia Surgical History History of surgery Family History (Updated 12/25/22 @ 10:20 by ZEUS Acosta) Mother Arthritis Other Hyperlipidemia, unspecified Social History (Updated 12/25/22 @ 10:20 by ZEUS Acosta) Household Members: Spouse Household Members Other:: cat Alcohol intake: never Patient Tobacco Use Status: Never used Tobacco Current occupational status: employed Current occupation: [employer] Review of Systems Const All systems reviewed & are unremarkable except as noted in HPI and below Physical Exam Vital Signs: Last Vital Signs Pulse 84 01/01/23 11:03 Resp 16 01/01/23 11:03 BP 175/70 H 01/01/23 11:03 Pulse Ox 97 01/01/23 11:03 Oxygen Delivery Method Room Air 01/01/23 11:03 BMI result Body Mass Index 33.5 General: awake, alert, oriented. Answers questions appropriately. Fully engaged in examination. Skin: warm, dry, intact without visible rashes or lesions. HEENT: Normocephalic. Hearing intact. Cardiac: External chest normal in appearance. Respiratory: No cough, audible wheezing or stridor. Abdomen: without gross distension. Neurological: Oriented to person, place, time and situation. Thought process intact. Psychiatric: Appropriate mood and affect. Good judgment and insight. Results Reviewed Results Reviewed: 10/05/22 Assessment & Plan Assessment & Plan (1) Polyarthralgia: Code(s): M25.50 - Pain in unspecified joint (2) Cervical radiculopathy: Code(s): M54.12 - Radiculopathy, cervical region (3) Arthropathy of cervical facet joint: Code(s): M47.812 - Spondylosis without myelopathy or radiculopathy, cervical region Plan Elodia is a very pleasant 57 year old female who presented back to the office today for follow up one week status post Fluoroscopy guided bilateral diagnostic C4-C5-C6 MBBs with local anesthetic. she did not find any relief with these injections. We discussed spinal cord stimulation with Linda. Pamphlet was given to the patient. Patient is not interested in pursuing spinal cord stimulation at this time, she will review the handout on [facility] SCS and contact the office if she wishes to proceed patient has follow-up with Rheumatology in 2 weeks, she is hoping that starting on medications for inflammatory arthritis will help her overall pain. All questions and concerns were addressed during the visit today. Patient will follow up if she decides to pursue spinal cord stimulation, or for any other concerns. Coding Level of Care Code Est Pt Level 3 (13875) Diagnoses Polyarthralgia M25.50 Cervical radiculopathy M54.12 Arthropathy of cervical facet joint M47.812
[2023-01-01 11:03] VITALS: BP 175/70; PULSE 84; RESP 16; O2SAT 97; BMI 33.5
== END 2023-01-01 11:32 | disposition home or self-care (01) ==
PROVIDERS: PCP Internal Medicine; Visit Provider Registered Nurse Emergency
DX: M25.50 Pain in unspecified joint (principal); M54.12 Radiculopathy, cervical region; M47.812 Spondylosis without myelopathy or radiculopathy, cervical region
CPT/HCPCS: 99213

== ENCOUNTER → 2023-01-01 10:55 | Outpatient (BNVA) | payer OTHER, SELFPAY | PROVIDERS: PCP Internal Medicine; Visit Provider Registered Nurse Emergency ==

== ENCOUNTER 2023-01-08 09:35 | Outpatient (AMB) | payer OTHER, SELFPAY ==
--- NOTE | 2023-01-08 09:40 | MHC.OFFVIS ---
Intake Vital Signs 01/08/23 09:41 Height 5 ft 7 in Weight 168 lb 10.458 oz BMI 26.4 BP 132/60 Blood Pressure Location Rt brachial Position Sitting Pulse 87 Pulse Source Pulse Oximeter Temp 97 F Temp Source Skin Pulse Oximetry (%) 94 Oxygen Delivery Method Room Air Intake Visit Reasons: joint pain Intake Note: Patient presents today to follow up on joint pain and test results. Last seen by Soumya Pollock on 12/25/22. Database Marketing Specialist Required: No Accompanied by: Self / Same As Patient Allergies doxycycline Allergy (Intermediate, Verified 01/08/23 09:45) Stomach Upset ciprofloxacin [From Cipro] Adverse Reaction (Intermediate, Verified 01/08/23 09:45) Stomach Upset duloxetine [From Cymbalta] Adverse Reaction (Intermediate, Verified 01/08/23 09:45) Nausea hydromorphone [From Dilaudid] Adverse Reaction (Intermediate, Verified 01/08/23 09:45) Confusion morphine Adverse Reaction (Intermediate, Verified 01/08/23 09:45) Confusion HPI HPI Comments History of Present Illness Details Ms. Elodia Ulloa is a 56 yoF returns today to review labs and xrays and discuss treatment and options for her IBD/UC related arthritis diagnosed at last visit. She reported severe suffering from the cervical injection and does not want to do that again. Last Visit: Ms. Elodia lUloa is a 56 yoF who presents today for evaluation of Joint pain which has worsened over the last 2 years. She has been having lower back, neck and foot pain for the better part of 2 years. Over the years she has received cortisone injections to both wrists, right elbow for tendonitis, left hip, lower back and cervical spine. The relief from these injections vary in duration. The lower back and cervical spine is her most painful areas and nothing has helped to date. She has a known history of Ulcerative Colitis for over 20 years and takes Sulfasalazine. She had an endoscopy during which crohn's may have been and incidental finding but this was not confirmed. She usually sees GI once per year for her UC but has had an increased $ of visits to within the last year due increased flares. The patient endorses morning stiffness that lasts at least an 1 hour to start resolving. Her pain and fatigue worsens as the day progresses. She takes Tylenol daily and Percocet an average of every other day for the last 3 to 4 years. She takes the percoset at night and wakes up with the pain in the morning. Patient denies Raynaud's phenomenon, butterfly rash on face or other rashes; denies photosensitivity - getting sick or developing a rash from being out in the sun; denies blood or froth in urine; patient denies hx of SOB, chest pain. Patient denies hx of Carditis or Pleuritis. Patient denies any history of DVT/PE. The patient reports never have had to take aspirin or a blood thinner during successful pregnancies. Denies fevers, unexplained weight-loss or weight-gain Denies: thinning hair or hair loss, hx of rashes; Denies: red burning eyes needing steroids to treat; dry mouth, mouth sores or ulcers; nose bleed; ringing in the ear. She does have dry eyes and uses daily eyedrops. Denies abdominal pain, blood or mucous in stool; nausea, vomiting and diarrhea , difficulty swallowing, heartburn. 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 History of immunosuppressive therapy Osteoarthritis involving multiple joints on both sides of body DDD (degenerative disc disease), cervical Osteoporosis screening History of ulcerative colitis Inflammatory bowel arthritis Rosacea Osteoarthritis Nonalcoholic fatty liver Neck pain Ulcerative colitis Fibromyalgia Current mild episode of major depressive disorder without prior episode Hypercholesteremia Paresthesia Surgical History History of surgery Family History Mother Arthritis Other Hyperlipidemia, unspecified Social History Household Members: Spouse Household Members Other:: cat Alcohol intake: never Patient Tobacco Use Status: Never used Tobacco Current occupational status: employed 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 External ear normal, canal clear and tympanic membrane normal. HEART:? Regular rhythm, S1-S2 heard, mild systolic murmurs. no rubs or gallops. LUNG:? Clear to percussion and auscultation EXTREMITIES:? No edema, no calf tenderness, normal peripheral pulses. wearing a rt wrist splint. Continues with tenderness to lower back NEURO:? Oriented and alert x3.? Gait cautious normal. ? Results Reviewed Results Reviewed: Laboratory Tests 12/25/22 11:25 RBC 4.18 L MCV 100.2 H Chloride 109 H BUN 17 H ALT 34 H C-Reactive Protein 0.89 H 25-OH Vitamin D Total 30 Rheumatoid Factor < 13.0 Cycl Citrul Peptide IgG <16 FAVIO Screen NEGATIVE SS-A/Ro Antibody <1.0 NEG SS-B/La Antibody <1.0 NEG Assessment & Plan Assessment & Plan (1) Inflammatory bowel arthritis: Comment: UC - Did Sulfasalazine for over 10 years; Current on Mesalamine Code(s): K63.9 - Disease of intestine, unspecified; M07.60 - Enteropathic arthropathies, unspecified site (2) DDD (degenerative disc disease), cervical: Code(s): M50.30 - Other cervical disc degeneration, unspecified cervical region (3) 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 Elodia Ulloa is a 56 yoF who presents today for follow up to discuss treatment options and review diagnostics ordered last visit. She has had no relief for her discomfort #IB/UC related arthritis. The only noteworthy finding from her lab was mildly elevated CRP 0.89, which can often be seen in patients with IBD; HLAB27 was negative. This is not unexpected in the setting of AxSpa but yet again affirms the challenge in diagnosing this disease subset. In any event, the patient does clinically present as having IBD related arthritis - her experience significant for prolonged morning stiffness, chronic lower back pain with tenderness on palpation, frequent bouts of tendonitis (enthesopathy), chronic achilles tenderness (with enthesophytes identified on xrays), and chronically tender wrists hand DIP joints (tender and red heberden nodes). I will start her on Enbrel 50 mg q.week. I will bridge her with some prednisone until the PA is completed and her Enbrel shipment is received. Patient will continue Mesalamine as prescribed by GI. She had prior used Sulfasalazine which cause elevated ALT/AST so I would rather not use MTX. Recent labs also shows mild elevation in ALT. #Spine/Hand OA: Sacroilitis and other AxSpa findings not identified on Xray but cervical and Lumbar DDD significant. May consider MRI of the Lumbar in the future, if Treatment not effective. Additionally, if Cervical spine pain not improved on treatment, patient has option of spine stimulator as suggested by Neuro. Patient experiences sever headaches because of the OA in C1/C2. Discussed with patient the risk of injury associated with C1/C2 fragility/instability during surgery (intubation) and dental procedures and to notify relevant providers accordingly when necessary. #Immunosuppressive Therapy: HepA/B/C panel is negative. I will obtain TB prior to starting Enbrel. IWill monitor CBC on Enbrel for pancytopenia. I discussed at length with patient the possible side effects of Enbrel to include but not limited to: injection site reaction (can treat with ice, Hydrocortisone), should reduce over time by 4th use; blood dyscrasias; and personal allergy to any ingredients in Enbrel. I informed the patient what to do should she develop any fevers - stop Enbrel use immediately and seek medical attention. We discuss things requiring consideration while on Enbrel therapy include but not limited to - vaccinations (flu, Pna etc, no live vaccines), infectious processes and antibiotics. Patient knows to call the office with any questions. #Osteoporosis Screening: Bone thinning can accelerate in the presence of an inflammatory arthritis. Ms. Clifton will continue with Calcium and a MultiVit. Vitamin D WNL acceptable limits (30) but I will recommend supplementation after Bone Density scans are completed. 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) use of immunosuppressive biologic Complete Blood Count Auto Diff 3 Months Z79.899 - Other shelter (current) drug therapy Medications: New prednisone Take 3 tablets x 7 days, 2 tablets x 7 days, 1 tablet x 7 days stop 60 tabs 0RF K63.9 - Disease of intestine, unspecified, M07.60 - Enteropathic arthropathies, unspecified site etanercept (Enbrel SureClick) Inject 50 mg QW SQ 50 mg subcut QWEEK 4 mL 3RF Coding Level of Care Code Est Pt Level 3 (86593) Diagnoses Inflammatory bowel arthritis K63.9; M07.60 DDD (degenerative disc disease), cervical M50.30 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
[2023-01-08 09:41] VITALS: BP 132/60; PULSE 87; TEMP 36.1; O2SAT 94; BMI 26.4
== END 2023-01-08 10:23 | disposition home or self-care (01) ==
PROVIDERS: PCP Internal Medicine; Visit Provider Nurse Practitioner Family
DX: K63.9 Disease of intestine, unspecified (principal); M07.60 Enteropathic arthropathies, unspecified site; M50.30 Other cervical disc degeneration, unspecified cervical region; Z79.620 Long term (current) use of immunosuppressive biologic; Z92.25 Personal history of immunosuppression therapy; Z87.19 Personal history of other diseases of the digestive system
CPT/HCPCS: 99213

== ENCOUNTER → 2023-01-08 09:35 | Outpatient (BNVA) | payer OTHER, SELFPAY | PROVIDERS: PCP Internal Medicine; Visit Provider Nurse Practitioner Family ==

== ENCOUNTER 2023-01-08 10:35 | Outpatient (REF) | payer OTHER, SELFPAY ==
[2023-01-11 00:54] LABS: TS Negative Control Passed; TS Panel A 0; TS Panel B 1; TS Positive Control Passed; TSpotTB Negative (Negative)
== END 2023-01-08 10:36 | disposition home or self-care (01) ==
LOC: HO.10HDL 10:35
PROVIDERS: Visit Provider Nurse Practitioner Family
DX: K63.9 Disease of intestine, unspecified (principal); M07.60 Enteropathic arthropathies, unspecified site; Z92.25 Personal history of immunosuppression therapy
CPT/HCPCS: 36415; 86481

== ENCOUNTER 2023-02-12 11:26 | Outpatient (AMB) | payer OTHER, SELFPAY ==
--- NOTE | 2023-02-12 11:29 | A.OFFVIS_ITS ---
Intake Vital Signs 02/12/23 11:38 Height 5 ft 7 in Weight 170 lb BMI 26.6 BP 160/80 H Blood Pressure Location Rt brachial Position Sitting Pulse 104 H Pulse Source Pulse Oximeter Pulse Oximetry (%) 96 Oxygen Delivery Method Room Air Intake Visit Reasons: IDB Arthritis Intake Note: Patient last seen 03/10/22, presents today for follow up and test results. Started Enbrel on 02/08/23 Reports SOB x 2 wks. General Surgery Physician Assistant Required: No Accompanied by: Self / Same As Patient Allergies doxycycline Allergy (Intermediate, Verified 02/12/23 11:30) Stomach Upset ciprofloxacin [From Cipro] Adverse Reaction (Intermediate, Verified 02/12/23 11:30) Stomach Upset duloxetine [From Cymbalta] Adverse Reaction (Intermediate, Verified 02/12/23 11:30) Nausea hydromorphone [From Dilaudid] Adverse Reaction (Intermediate, Verified 02/12/23 11:30) Confusion morphine Adverse Reaction (Intermediate, Verified 02/12/23 11:30) Confusion HPI HPI Comments History of Present Illness Details Ms. Elodia Ulloa is a 57 yoF returns today for follow-up assessment of SpA after starting Enbrel. She also continues with right Dequervain tend onitis (right forearm brace in place). She has taken one dose of Enbrel 50 mg this past friday and reports no noticeable relief to her cervical and lower back, hands or feet. Initial Visit 12/25/2022: Ms. Elodia Ulloa is a 56 yoF who presents today for evaluation of Joint pain which has worsened over the last 2 years. She has been having lower back, neck and foot pain for the better part of 2 years. Over the years she has received cortisone injections to both wrists, right elbow for tendonitis, left hip, lower back and cervical spine. The relief from these injections vary in duration. The lower back and cervical spine is her most painful areas and nothing has helped to date. She has a known history of Ulcerative Colitis for over 20 years and takes Sulfasalazine. She had an endoscopy during which crohn's may have been and incidental finding but this was not confirmed. She usually sees GI once per year for her UC but has had an increased $ of visits to within the last year due increased flares. The patient endorses morning stiffness that lasts at least an 1 hour to start resolving. Her pain and fatigue worsens as the day progresses. She takes Tylenol daily and Percocet an average of every other day for the last 3 to 4 years. She takes the percoset at night and wakes up with the pain in the morning. Patient denies Raynaud's phenomenon, butterfly rash on face or other rashes; denies photosensitivity - getting sick or developing a rash from being out in the sun; denies blood or froth in urine; patient denies hx of SOB, chest pain. Patient denies hx of Carditis or Pleuritis. Patient denies any history of DVT/PE. The patient reports never have had to take aspirin or a blood thinner during successful pregnancies. Denies fevers, unexplained weight-loss or weight-gain Denies: thinning hair or hair loss, hx of rashes; Denies: red burning eyes needing steroids to treat; dry mouth, mouth sores or ulcers; nose bleed; ringing in the ear. She does have dry eyes and uses daily eyedrops. Denies abdominal pain, blood or mucous in stool; nausea, vomiting and diarrhea , difficulty swallowing, heartburn. Malignancy screening are up to date: Denies personal hx of cancer Colonoscopy : Y Mammogram Y [facility] Medical History (Updated 02/12/23 @ 12:16 by Soumya Pollock [facility]) Wrist pain, right De Quervain's tenosynovitis, right half-way (current) use of immunosuppressive biologic History of immunosuppressive therapy Osteoarthritis involving multiple joints on both sides of body DDD (degenerative disc disease), cervical Osteoporosis screening History of ulcerative colitis Inflammatory bowel arthritis Rosacea Osteoarthritis Nonalcoholic fatty liver Neck pain Ulcerative colitis Fibromyalgia Current mild episode of major depressive disorder without prior episode Hypercholesteremia Paresthesia Surgical History History of surgery Family History Mother Arthritis Other Hyperlipidemia, unspecified Social History Household Members: Spouse Household Members Other:: cat Alcohol intake: never Patient Tobacco Use Status: Never used Tobacco Current occupational status: employed 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 External ear normal, canal clear and tympanic membrane normal. HEART:? Regular rhythm, S1-S2 heard, mild systolic murmurs. no rubs or gallops. LUNG:? Clear to percussion and auscultation EXTREMITIES:? No edema, no calf tenderness, normal peripheral pulses. wearing a rt wrist splint. Continues with tenderness to lower back NEURO:? Oriented and alert x3.? Gait cautious normal. ? Office Procedures Joint Injection/Drain Joint Injection/Drain Primary Site: other Prep: site was prepped using aseptic technique and injection warnings given Injected: 40 mg of, Kenalog, with 0.5 mL of and 1% plain lidocaine Approach Used: anterolateral Procedure: The patient tolerated the procedure well Coding 41282 - Medium joint Procedure code (CPT) selection complete Results Reviewed Results Reviewed: Laboratory Tests 12/25/22 11:25 RBC 4.18 L MCV 100.2 H ESR 11 ALT 34 H C-Reactive Protein 0.89 H Assessment & Plan Assessment & Plan (1) Inflammatory bowel arthritis: Comment: UC - Did Sulfasalazine for over 10 years; Current on Mesalamine Code(s): K63.9 - Disease of intestine, unspecified; M07.60 - Enteropathic arthropathies, unspecified site (2) DDD (degenerative disc disease), cervical: Code(s): M50.30 - Other cervical disc degeneration, unspecified cervical region (3) half-way (current) use of immunosuppressive biologic: Code(s): Z79.620 - terminal operator (current) use of immunosuppressive biologic (4) History of ulcerative colitis: Comment: UC - on Sulfasalazine for over 10 years Code(s): Z87.19 - Personal history of other diseases of the digestive system (5) 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 Elodia Ulloa is a 56 yoF who presents today for follow up after starting treatment with Enbrel. She has had no relief for her discomfort #Inflammatory Back Pain/nrSpA: With the use of Enbrel we hope to see improveme nt, after 2 months, in her prolonged morning stiffness, chronic lower back pain and foot pain, little or no episodes of tendonitis (enthesopathy), decreased chronic achilles tenderness (with enthesophytes identified on xrays), and chronically tender wrists, hand DIP joints (tender and red heberden nodes).Imaging identified bilateral achilles enthesopathy Patient will continue Mesalamine as prescribed by GI for UC. She had prior used Sulfasalazine which cause elevated ALT/AST so I would rather not use MTX. Recent labs continues to show mild elevation in ALT and CRP. #Spine/Hand/Foot OA:Sacroilitis and other AxSpa findings not identified on Xray but cervical and Lumbar DDD significant. If Back pain not improved on treatment, patient has option of spine stimulator as suggested by Neuro. Patient experiences severe headaches because of the OA in C1/C2. Discussed with patient the risk of injury associated with C1/C2 fragility/instability during surgery (intubation) and dental procedures and to notify relevant providers accordingly when necessary. #Immunosuppressive Therapy: HepA/B/C panel and TB are negative. I will monitor CBC on Enbrel for pancytopenia. I discussed at length with patient the possible side effects of Enbrel to include but not limited to: injection site reaction (can treat with ice, Hydrocortisone), should reduce over time by 4th use; blood dyscrasias; and personal allergy to any ingredients in Enbrel. I informed the patient what to do should she develop any fevers - stop Enbrel use immediately and seek medical attention. We discuss things requiring consideration while on Enbrel therapy include but not limited to - vaccinations (flu, Pna etc, no live vaccines), infectious processes and antibiotics. Patient knows to call the office with any questions. #Osteoporosis Screening: Bone thinning can accelerate in the presence of an inflammatory arthritis. Ms. Clifton will continue with Calcium and a MultiVit. Vitamin D WNL acceptable limits (30) but I will recommend supplementation after Bone Density scans are completed. 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
[2023-02-12 11:38] VITALS: BP 160/80; PULSE 104; O2SAT 96; BMI 26.6
== END 2023-02-12 12:00 | disposition home or self-care (01) ==
PROVIDERS: PCP Internal Medicine; Visit Provider Nurse Practitioner Family
DX: K63.9 Disease of intestine, unspecified (principal); M07.60 Enteropathic arthropathies, unspecified site; M50.30 Other cervical disc degeneration, unspecified cervical region; Z79.620 Long term (current) use of immunosuppressive biologic; Z87.19 Personal history of other diseases of the digestive system; M45.A Non-radiographic axial spondyloarthritis; D61 Other aplastic anemias and other bone marrow failure syndromes; M65.4 Radial styloid tenosynovitis [de Quervain]
CPT/HCPCS: 20550; 99213

== ENCOUNTER → 2023-02-12 11:26 | Outpatient (BNVA) | payer OTHER, SELFPAY | PROVIDERS: PCP Internal Medicine; Visit Provider Nurse Practitioner Family | DX: M65.4 Radial styloid tenosynovitis [de Quervain] (principal); M25.531 Pain in right wrist; K63.9 Disease of intestine, unspecified; M07.60 Enteropathic arthropathies, unspecified site; M50.30 Other cervical disc degeneration, unspecified cervical region; M45.A Non-radiographic axial spondyloarthritis; Z79.620 Long term (current) use of immunosuppressive biologic; Z87.19 Personal history of other diseases of the digestive system | CPT/HCPCS: 20550; J3301 ==

== ENCOUNTER 2023-04-23 10:46 | Outpatient (AMB) | payer BC, SELFPAY ==
[2023-04-23 10:50] VITALS: BP 142/84; PULSE 102; RESP 16; TEMP 36.4; O2SAT 96
--- NOTE | 2023-04-23 10:50 | A.OFFVIS_ITS ---
Intake Vital Signs 04/23/23 10:50 Weight 215 lb 13.321 oz BP 142/84 H Blood Pressure Location Rt brachial Position Sitting Respiration 16 Pulse 102 H Pulse Source Pulse Oximeter Temp 97.6 F Temp Source Skin Pulse Oximetry (%) 96 Oxygen Delivery Method Room Air Intake Visit Reasons: Inflammatory Back Pain/SpA Communications And Signals Supervisor Required: No Allergies doxycycline Allergy (Intermediate, Verified 04/23/23 10:55) Stomach Upset ciprofloxacin [From Cipro] Adverse Reaction (Intermediate, Verified 04/23/23 10:55) Stomach Upset duloxetine [From Cymbalta] Adverse Reaction (Intermediate, Verified 04/23/23 10:55) Nausea hydromorphone [From Dilaudid] Adverse Reaction (Intermediate, Verified 04/23/23 10:55) Confusion morphine Adverse Reaction (Intermediate, Verified 04/23/23 10:55) Confusion Medication List - Last Reconciled 04/23/23 by Toña Murray, RN bergamot extract ([place] Bergamot) mg PO cetirizine (All Day Allergy (cetirizine)) 10 mg PO DAILY PRN diclofenac sodium 1% grams topical etanercept (Enbrel SureClick) 50 mg subcut QWEEK fluticasone propionate 50 mcg/actuation (Allergy Relief (fluticasone)) 2 sprays intranasal DAILY folic acid 1 mg PO DAILY hydrocodone-acetaminophen 5-300 mg 1 tab PO Q8H PRN lifitegrast 5% (Xiidra) drps ophthalmic (eye) multivitamin (Daily Multi-Vitamin tablet) 1 tab PO DAILY omega 1-brx-jzt-fish oil 60-90-500 mg (Fish Oil) 2 caps PO DAILY ondansetron HCl 4 mg PO Q8H red yeast rice 600 mg PO DAILY rosuvastatin 5 mg PO DAILY sertraline 50 mg PO DAILY sulfasalazine 1,000 mg PO TID tizanidine 4 mg PO BEDTIME vit B comp with C-calcium carb 300 mg-150 mg calcium (B-Complex Plus Vitamin C (and calcium)) 1 tab PO DAILY HPI HPI Comments History of Present Illness Details Ms. Elodia Ulloa is a 57 yoF returns today for follow-up assessment of SpA after starting Enbrel. She she reports that the injection at last visit resolved the right Dequervain tendonitis such that she no longer needs to wear the brace. She she has had over 6 doses of Enbrel 50 mg. She has not been going to work and so she has not been doing much activity.. She is feeling improved in her back, and her overall pain levels are far less. However, she she is not sure that this improve can be attributed to Enbrel given that she has not been working and moving around as much. She is also a 3rd set of disability paperwork completed since she is considering long-term disability. Initial Visit 12/25/2022: Ms. Elodia Ulloa is a 56 yoF who presents today for evaluation of Joint pain which has worsened over the last 2 years. She has been having lower back, neck and foot pain for the better part of 2 years. Over the years she has received cortisone injections to both wrists, right elbow for tendonitis, left hip, lower back and cervical spine. The relief from these injections vary in duration. The lower back and cervical spine is her most painful areas and nothing has helped to date. She has a known history of Ulcerative Colitis for over 20 years and takes Sulfasalazine. She had an endoscopy during which crohn's may have been and incidental finding but this was not confirmed. She usually sees GI once per year for her UC but has had an increased $ of visits to within the last year due increased flares. The patient endorses morning stiffness that lasts at least an 1 hour to start resolving. Her pain and fatigue worsens as the day progresses. She takes Tylenol daily and Percocet an average of every other day for the last 3 to 4 years. She takes the percoset at night and wakes up with the pain in the morning. Patient denies Raynaud's phenomenon, butterfly rash on face or other rashes; denies photosensitivity - getting sick or developing a rash from being out in the sun; denies blood or froth in urine; patient denies hx of SOB, chest pain. Patient denies hx of Carditis or Pleuritis. Patient denies any history of DVT/PE. The patient reports never have had to take aspirin or a blood thinner during successful pregnancies. Denies fevers, unexplained weight-loss or weight-gain Denies: thinning hair or hair loss, hx of rashes; Denies: red burning eyes needing steroids to treat; dry mouth, mouth sores or ulcers; nose bleed; ringing in the ear. She does have dry eyes and uses daily eyedrops. Denies abdominal pain, blood or mucous in stool; nausea, vomiting and diarrhea , difficulty swallowing, heartburn. 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 History of immunosuppressive therapy Osteoarthritis involving multiple joints on both sides of body DDD (degenerative disc disease), cervical Osteoporosis screening History of ulcerative colitis Inflammatory bowel arthritis Rosacea Osteoarthritis Nonalcoholic fatty liver Neck pain Ulcerative colitis Fibromyalgia Current mild episode of major depressive disorder without prior episode Hypercholesteremia Paresthesia Surgical History History of surgery Family History Mother Arthritis Other Hyperlipidemia, unspecified Social History Household Members: Spouse Household Members Other:: cat Alcohol intake: never Patient Tobacco Use Status: Never used Tobacco Current occupational status: employed Current occupation: [employer] Physical Exam Vital Signs: Last Vital Signs Temp 97.6 F 04/23/23 10:50 Pulse 102 H 04/23/23 10:50 Resp 16 04/23/23 10:50 BP 142/84 H 04/23/23 10:50 Pulse Ox 96 04/23/23 10:50 Oxygen Delivery Method Room Air 04/23/23 10:50 APPEARANCE: Patient in no acute distress EYES no redness, pupils equal and reactive to light, eyelids normal EARS:? External ear normal, canal clear and tympanic membrane normal. NOSE/SINUS:? Airflow through both nares, no nasal discharge, no bleeding THROAT:? Oral mucosa moist, no ulcerations NECK:? No thyromegaly or masses, no adenopathy, trachea midline. HEART:? Regular rhythm, S1-S2 heard, mild systolic murmurs. no rubs or gallops. LUNG:? Clear to percussion and auscultation ABD:? Normal bowel sounds, no organomegaly, masses or tenderness. EXTREMITIES:? No edema, no calf tenderness, normal peripheral pulses. NEURO:? Oriented and alert x3.? No focal weakness.? Reflexes symmetric.? Gait normal. SKIN:? There are no skin lesions evident. No objective signs of Raynaud's phenomenon. Patient describes scalp gets itchy with occasional lesions and she was given topical creams to use. No dryness or lesions observed on PE JOINT EXAM: Cervical Spine:.? Full range of motion with pain; no tenderness; cervical hump Thoracic Spine:.? No scoliosis.? No tenderness on palpation. Lumbar Spine:.? Alignment normal.? Full range of motion without pain, mild right side tenderness. Chest Wall:.? No tenderness, swelling, increased warmth or erythema. Hands:.? Normal pain-free range of motion without tenderness, swelling, i ncreased warmth or erythema. Able to make a full fist and has a good carbon cutter strength but no more stiff per patient. Mild tenderness DIP joints all with moderate size herberden nodes. mild redness to left 3rd DIP. Wrists:.? Normal pain-free range of motion without tenderness, swelling, increased warmth or erythema. Elbows:. Normal pain-free range of motion without, swelling, increased warmth or erythema. reduced tenderness to bilateral lateral epicondyle on palpation Shoulders:.?? Full range of motion without pain. No tenderness, weakness, swe lling, increased warmth or erythema. Hips:.? Full range of motion with mild pain and tightness to groin and outer hip . Hip bursa:.? Reduce Bilateral tenderness left greater than right Knees:.?? Normal pain-free range of motion without tenderness, swelling, increased warmth or erythema.? There is no effusion but there crepitation at patella Ankles:.? Normal pain-free range of motion without tenderness, swelling, increased warmth or erythema. Reduced Tenderness to bilateral Achilles tendon. Feet:.? Normal pain-free range of motion without tenderness, swelling, increased warmth or erythema. Reduced plantar tenderness Tender points:? No tenderness to digital palpation at the occiput, trapezius, second rib, knees, greater trochanter and gluteal area bilaterally. ? 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 Elodia Ulloa is a 56 yoF who presents today for follow up after starting treatment with Enbrel and corticosteroid injection for right de Quervain tendonitis. The right de Quervain tendinitis has resolved. She does report some overall improvement to her pain levels but is not required ready to say that it is because of the Enbrel and that it may be attributed to her reduced activity level and increased rest. There is less tenderness as outlined in PE. We will continue Enbrel 50 mg q.week and continue to reassess for improvement. We will obtain updated labs for next visit and hope to see her CRP normalized. We reviewed when to hold the Enbrel. We have completed her disability paperwork at this visit. I spent 60 minutes reviewing records, evaluating patient and completing paperwork, and documenting. Follow-up in 6 months Prior visit 02/12/2023 #Inflammatory Back Pain/nrSpA: With the use of Enbrel we hope to see improvement, after 2 months, in her prolonged morning stiffness, chronic lower back pain and foot pain, little or no episodes of tendonitis (enthesopathy), decreased chronic achilles tenderness (with enthesophytes identified on xrays), and chronically tender wrists, hand DIP joints (tender and red heberden nodes).Imaging identified bilateral achilles enthesopathy Patient will continue Mesalamine as prescribed by GI for UC. She had prior used Sulfasalazine which cause elevated ALT/AST so I would rather not use MTX. Recent labs continues to show mild elevation in ALT and CRP. #Spine/Hand/Foot OA:Sacroilitis and other AxSpa findings not identified on Xray but cervical and Lumbar DDD significant. If Back pain not improved on treatment, patient has option of spine stimulator as suggested by Neuro. Patient experiences severe headaches because of the OA in C1/C2. Discussed with patient the risk of injury associated with C1/C2 fragility/instability during surgery (intubation) and dental procedures and to notify relevant providers accordingly when necessary. #Immunosuppressive Therapy: HepA/B/C panel and TB are negative. I will monitor CBC on Enbrel for pancytopenia. I discussed at length with patient the possible side effects of Enbrel to include but not limited to: injection site reaction (can treat with ice, Hydrocortisone), should reduce over time by 4th use; blood dyscrasias; and personal allergy to any ingredients in Enbrel. I informed the patient what to do should she develop any fevers - stop Enbrel use immediately and seek medical attention. We discuss things requiring consideration while on Enbrel therapy include but not limited to - vaccinations (flu, Pna etc, no live vaccines), infectious processes and antibiotics. Patient knows to call the office with any questions. #Osteoporosis Screening: Bone thinning can accelerate in the presence of an inflammatory arthritis. Ms. Clifton will continue with Calcium and a MultiVit. Vitamin D WNL acceptable limits (30) but I will recommend supplementation after Bone Density scans are completed. Orders: Orders Erythrocyte Sedimentation Rate 6 Months M45.A0 - Non-radiographic axial spondyloarthritis of unspecified sites in spine, Z79.620 - administrative operations coordinator (current) use of immunosuppressive biologic C Reactive Protein 6 Months M45.A0 - Non-radiographic axial spondyloarthritis of unspecified sites in spine, Z79.620 - administrative operations coordinator (current) use of immunosuppressive biologic Alanine Aminotransferase 6 Months M45.A0 - Non-radiographic axial spondyloarthritis of unspecified sites in spine, Z79.620 - administrative operations coordinator (current) use of immunosuppressive biologic, Z79.899 - Other mcfp (current) drug therapy Aspartate Amino Transferase 6 Months M45.A0 - Non-radiographic axial spondyloarthritis of unspecified sites in spine, Z79.620 - administrative operations coordinator (current) use of immunosuppressive biologic, Z79.899 - Other ski technician (current) drug therapy Complete Blood Count Auto Diff 6 Months M45.A0 - Non-radiographic axial spondyloarthritis of unspecified sites in spine, Z79.620 - care home (current) use of immunosuppressive biologic, Z79.899 - Other mcfp (current) drug therapy Creatinine 6 Months M45.A0 - Non-radiographic axial spondyloarthritis of unspecified sites in spine, Z79.620 - administrative operations coordinator (current) use of immunosuppressive biologic, Z79.899 - Other mcfp (current) drug therapy Coding Level of Care Code Est Pt Level 5 (63256) Diagnoses Inflammatory bowel arthritis K63.9; M07.60 DDD (degenerative disc disease), cervical M50.30 administrative operations coordinator (current) use of immunosuppressive biologic Z79.620 History of ulcerative colitis Z87.19 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
== END 2023-04-23 11:52 | disposition home or self-care (01) ==
PROVIDERS: PCP Internal Medicine; Visit Provider Nurse Practitioner Family
DX: K63.9 Disease of intestine, unspecified (principal); M07.60 Enteropathic arthropathies, unspecified site; M50.30 Other cervical disc degeneration, unspecified cervical region; Z79.620 Long term (current) use of immunosuppressive biologic; Z87.19 Personal history of other diseases of the digestive system; M45.A Non-radiographic axial spondyloarthritis; M45.A0 Non-radiographic axial spondyloarthritis of unspecified sites in spine
CPT/HCPCS: 99215

== ENCOUNTER → 2023-04-23 10:46 | Outpatient (BNVA) | payer BC, SELFPAY | PROVIDERS: PCP Internal Medicine; Visit Provider Nurse Practitioner Family ==

== ENCOUNTER 2023-06-19 09:59 | Outpatient (AMB) | payer BC, SELFPAY ==
--- NOTE | 2023-06-19 10:04 | A.OFFVIS_ITS ---
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 Currently taking Embrel prescribed by rheumatology. States she was told her inflammatory markers are improved but she does not feel improvement in her pain. continues with pain midline cervical neck pain. 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 Just could not continue working, manager configuration was not understanding or tolerant of the use of intermittent FMLA Continues to report that the injections did not help her pain, she had lumbar spine injections at [facility] and states those did not help either. has been taking Tizanidine that helps at bedtime but does not last the entire night. Is not able to take during the day because it makes her too sleepy continues using TENS unit with moderate effect Prior: Elodia presents back to the office in today for follow-up 1 week status post Fluoroscopy guided bilateral diagnostic C4-C5-C6 MBBs with local anesthetic. Patient denies any improvement in her pain in the hours following the diagnostic injections. She does report that her chronic headaches resolved for approximately 1 hour but then returned with a vengeance . The injections were very painful and she does not want to attempt again. She was evaluated last week by rheumatology. She had labs completed with a plan to start her on treatment for inflammatory arthritis. She is hoping that this medication will help her with the all-over pain including neck pain and headaches. Prior: Elodia presents back to the office today for follow up after MRI. MRI reviewed with patient, results as per below. She continues to endorse bilateral neck pain, rated today as 6/10. Pain is worse on the right, but since last visit she is no longer experiencing RUE weakness, pain, numbness or tingling. She does report some headaches from the neck pain. Pain is improved some with TENS unit, but returns when she the stimulation is off. Tizanidine helps with sleep, but makes her drowsy so she does not take it during the day. Patient suffers from polyarthralgia, she has tried baclofen, gabapentin and lyrica in the past. She did not tolerate any of them. 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 Prior: Elodia is a very pleasant 56-year-old female who presents to the office today for evaluation and management of her chronic neck pain. She has been suffering with this pain for many years but was recently exacerbated by a fall about a month and a half ago. Pain in both sides of the neck though worse on the right with radiation down the right arm to the level of the forearm. She also reports weakness of the right arm and numbness, tingling, pins and needles. She reports the pain is exacerbated with movement and staying in one position for extended period of time. 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 She has chronic headaches and when her neck pain is exacerbated it will cause severe headaches. Patient has tried physical therapy in the past and found it was not helpful and her co-pay was cost prohibitive; she does continue with home exercise program as tolerated. She has also tried chiropractor and acupuncture without relief. She is currently taking tizanidine which she notices the benefit of improved sleep at night. She has diclofenac gel that she has been using without change in her pain and she is on chronic opioid therapy, Vicodin, that she takes for ulcerative colitis with no secondary benefit of neck pain improvement. Patient is using topical nonsteroidal anti-inflammatory medication and states that due to her ulcerative colitis she was advised by Gastroenterology to avoid oral nonsteroidal anti-inflammatory medications. Patient had an x-ray of her cervical spine 09/09/2022, results as per below. Patient also reports history of chronic lower back pain with radiation down the right leg. She states that she had MRI approximately 2 years ago and she used to receive injections at [facility]. She did not find any relief with the injections and ultimately unsatisfied with there treatment and did not go back. In terms of muscle damage condition is described as aching, hot, burning, tingling, pins and needles. Pain is negatively impacting her enjoyment of life, general activity, mood, normal work, recreational activities, sleep and mobility. Patient denies implantable devices, pacemaker, defibrillator. [facility] Medical History Non-radiographic axial spondyloarthritis Wrist pain, right De Quervain's tenosynovitis, right senior living (current) use of immunosuppressive biologic History of immunosuppressive therapy Osteoarthritis involving multiple joints on both sides of body DDD (degenerative disc disease), cervical Osteoporosis screening History of ulcerative colitis Inflammatory bowel arthritis Rosacea Osteoarthritis Nonalcoholic fatty liver Neck pain Ulcerative colitis Fibromyalgia Current mild episode of major depressive disorder without prior episode Hypercholesteremia Paresthesia Surgical History History of surgery Family History Mother Arthritis Other Hyperlipidemia, unspecified Social History Household Members: Spouse Household Members Other:: cat Alcohol intake: never Patient Tobacco Use Status: Never used Tobacco Current occupational status: employed Current occupation: [employer] Review of Systems Const All systems reviewed & are unremarkable except as noted in HPI and below Physical Exam Vital Signs: Last Vital Signs Pulse 92 06/19/23 10:09 BP 175/81 H 06/19/23 10:09 Pulse Ox 100 06/19/23 10:09 Oxygen Delivery Method Room Air 06/19/23 10:09 BMI result Body Mass Index 33.7 General: awake, alert, oriented. Answers questions appropriately. Fully engaged in examination. Skin: warm, dry, intact without visible rashes or lesions. HEENT: Normocephalic. Hearing intact. Cardiac: External chest normal in appearance. Respiratory: No cough, audible wheezing or stridor. Abdomen: without gross distension. Neurological: Oriented to person, place, time and situation. Thought process intact. Psychiatric: Appropriate mood and affect. Good judgment and insight. Back/Spine/Pelvis Other: Cervical Spine: Tender to palpation over paraspinal muscles Tender to palpation over cervical vertebrae Decreased cervical ROM in all planes Spurling compression test positive Lhermitte's test negative. BUE strength 5/5 DTR symmetrical and intact bilaterally. Results Reviewed Results Reviewed: 10/05/22 Assessment & Plan Assessment & Plan (1) Polyarthralgia: Code(s): M25.50 - Pain in unspecified joint Category: Medical (2) Cervical radiculopathy: Code(s): M54.12 - Radiculopathy, cervical region Category: Medical (3) Arthropathy of cervical facet joint: Code(s): M47.812 - Spondylosis without myelopathy or radiculopathy, cervical region Category: Medical Plan Elodia is a very pleasant 57 year old female who presented back to the office today for follow chronic cervical neck pain Previously underwent bilateral diagnostic C4-C5-C6 MBB without improvement of her pain We again discussed trial of cervical spinal cord stimulation. Pamphlet was given to the patient at last visit. She is not interested in pursuing spinal cord stimulation at this time. F/U with Rheum as planned All questions and concerns were addressed during the visit today. Patient will follow up if she decides to pursue spinal cord stimulation, sooner if needed. Coding Level of Care Code Est Pt Level 3 (55725) Diagnoses Polyarthralgia M25.50 Cervical radiculopathy M54.12 Arthropathy of cervical facet joint M47.812
[2023-06-19 10:09] VITALS: BP 175/81; PULSE 92; O2SAT 100; BMI 33.7
== END 2023-06-19 10:52 | disposition home or self-care (01) ==
PROVIDERS: PCP Internal Medicine; Visit Provider Registered Nurse Emergency
DX: M25.50 Pain in unspecified joint (principal); M54.12 Radiculopathy, cervical region; M47.812 Spondylosis without myelopathy or radiculopathy, cervical region
CPT/HCPCS: 99213

== ENCOUNTER → 2023-06-19 09:59 | Outpatient (BNVA) | payer BC, SELFPAY | PROVIDERS: PCP Internal Medicine; Visit Provider Registered Nurse Emergency ==

== ENCOUNTER 2023-08-15 09:22 | Outpatient (AMB) | payer BC, SELFPAY ==
--- NOTE | 2023-08-15 09:26 | MHC.OFFVIS ---
Vital Signs 08/15/23 09:29 Height 5 ft 7 in Weight 218 lb 4.122 oz BMI 34.2 BP 140/72 H Blood Pressure Location Rt brachial Position Sitting Pulse 116 H Pulse Source Pulse Oximeter Pulse Oximetry (%) 94 Oxygen Delivery Method Room Air Intake Visit Reasons: NrAxSpA/CM Intake Note: Pt last seen by Soumya in March. Enbrel was d/c ? causing high BP. Last used it 3 weeks ago, has noticed an increase in pain. Reports anxiety following with PCP Zoloft increased. 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 Required: No Accompanied by: Self / Same As Patient Allergies doxycycline Allergy (Intermediate, Verified 08/15/23 09:40) Stomach Upset ciprofloxacin [From Cipro] Adverse Reaction (Intermediate, Verified 08/15/23 09:40) Stomach Upset duloxetine [From Cymbalta] Adverse Reaction (Intermediate, Verified 08/15/23 09:40) Nausea etanercept [From Enbrel] Adverse Reaction (Intermediate, Verified 08/15/23 10:06) Anxiety hydromorphone [From Dilaudid] Adverse Reaction (Intermediate, Verified 08/15/23 09:40) Confusion morphine Adverse Reaction (Intermediate, Verified 08/15/23 09:40) Confusion Medication List - Last Reconciled 08/15/23 by Satish Flores MD bergamot extract ([facility] Bergamot) mg PO cetirizine (All Day Allergy (cetirizine)) 10 mg PO DAILY PRN diclofenac sodium 1% grams topical fluticasone propionate 50 mcg/actuation (Allergy Relief (fluticasone)) 2 sprays intranasal DAILY folic acid 1 mg PO DAILY hydrocodone-acetaminophen 5-300 mg 1 tab PO Q8H PRN lifitegrast 5% (Xiidra) drps ophthalmic (eye) multivitamin (Daily Multi-Vitamin tablet) 1 tab PO DAILY omega 5-soo-lkc-fish oil 60-90-500 mg (Fish Oil) 2 caps PO DAILY ondansetron HCl 4 mg PO Q8H red yeast rice 600 mg PO DAILY rosuvastatin 5 mg PO DAILY sertraline 100 mg PO DAILY sulfasalazine 1,000 mg PO TID tizanidine 4 mg PO BEDTIME vit B comp with C-calcium carb 300 mg-150 mg calcium (B-Complex Plus Vitamin C (and calcium)) 1 tab PO DAILY HPI Comments Details: This is a 57-year-old female non radiographic axial spa who presents for follow-up. This is her 1st visit with me, she used to follow-up with Soumya Pollock. She also has known history of ulcerative colitis and is on sulfasalazine for many years. Patient took Enbrel for approximately 5 months, overall the pains in her neck, back, hands and ankles improved however 3 weeks ago she was having increased anxiety and hypertension, she was evaluated by her PCP, there was some suspicion of Enbrel causing those side effects. Enbrel was discontinued 3-4 weeks ago and her Zoloft was increased. Since patient stopped her Enbrel she has been having worsening neck pain, back pain, pain and swelling of her hands, her ankles. Feeling much worse overall. 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 History of immunosuppressive therapy Osteoarthritis involving multiple joints on both sides of body DDD (degenerative disc disease), cervical Osteoporosis screening History of ulcerative colitis Inflammatory bowel arthritis Rosacea Osteoarthritis Nonalcoholic fatty liver Neck pain Ulcerative colitis Fibromyalgia Current mild episode of major depressive disorder without prior episode Hypercholesteremia Paresthesia Surgical History History of surgery Family History Mother Arthritis Other Hyperlipidemia, unspecified Social History Household Members: Spouse Household Members Other:: cat Alcohol intake: never Patient Tobacco Use Status: Never used Tobacco Current occupational status: employed Current occupation: [employer] Female Reproductive History Menstrual Total pregnancies: 4 Review of Systems ENT Reports neck pain Musc Reports back pain, Reports arthralgias, Reports joint swelling, Reports neck pain and Reports stiffness Physical Exam Vital Signs: Last Vital Signs Pulse 116 H 08/15/23 09:29 BP 140/72 H 08/15/23 09:29 Pulse Ox 94 08/15/23 09:29 Oxygen Delivery Method Room Air 08/15/23 09:29 BMI result Body Mass Index 34.2 Const General: cooperative, healthy appearing and comfortable Nutritional Appearance: obese Orientation/consciousness: patient oriented x3 Limitations: no limitations HEENT Head: Yes normocephalic and Yes atraumatic Mouth: moist mucous membranes Resp Effort & Inspection: normal respiratory effort and able to speak in complete sentences Auscultation: clear to auscultation bilaterally Cardio Rate: regular rate Rhythm: regular rhythm GI Inspection: No distended Palpation (GI): Soft to palpation and nontender Skin General skin exam: no rashes or lesions noted Neuro General: patient oriented x3 Extrem Other: Bilateral diffuse swelling of fingers 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 Pain in unspecified joint? COMPARISON:? None available.? TECHNIQUE:? 3 views of the sacroiliac joints FINDINGS: The bones are intact. No fracture. Alignment is anatomic. There are small marginal osteophytes at the inferior aspect of the left sacroiliac joint, otherwise the sacroiliac joint spaces are well-maintained without erosions or surrounding sclerosis. The cartilage spaces of the hips is well-maintained. There is mild degenerative change of the pubic symphysis. Incidental note is made of transitional lumbosacral vertebral body XR/XR sacroiliac joint 1-2V IMPRESSION: No significant abnormality of the sacroiliac joints. EXAMINATION: XR LUMBOSACRAL SPINE CLINICAL INFORMATION:? Pain in unspecified joint? COMPARISON:? None available.? TECHNIQUE:? Three views of the lumbosacral spine. FINDINGS: There are small riblets extending off the T12 vertebral body. There is a transitional lumbosacral vertebral body with sacralization on the right and for the purposes study will be called L5. There is mild disc space narrowing with marginal osteophyte formation at L2-L3. The L5-S1 disc space is narrow. There is mild retrolisthesis of L4 with respect to L5. There is degenerative facet joint disease at L5-S1. There is nonspecific cystic change in the facet of L5. XR/XR lumbar spine 2-3V IMPRESSION: 1.? Transitional lumbosacral vertebral body. 2.? Degenerative disc disease at L2-L3 and probably L5-S1 3.? Mild retrolisthesis of L4 with respect to L5. 4.? Degenerative facet joint disease at L5-S1. Ordering Physician: Soumya Pollock Date of Service: 12/25/22 Procedure(s): XR hand wrist RT Accession Number(s): [id number] cc: PATRICIA PINA MD; Soumya Pollock~ EXAMINATION:? XR WRIST, RIGHT XR HAND, RIGHT CLINICAL INFORMATION:? Pain in unspecified joint?? COMPARISON:? None available.?? TECHNIQUE:? PA, lateral, and oblique views of the right wrist and PA, lateral, and oblique views of the right hand. Dedicated navicular view FINDINGS:? RIGHT WRIST: The bones are intact. No fracture. Alignment is anatomic. Joint spaces are maintained. No erosions or soft tissue calcifications. ? RIGHT HAND: The bones are intact. No fracture. Alignment is anatomic. Mild degenerative change of the DIP joints of the index and middle finger. No erosions or soft tissue calcifications.?? XR/XR hand wrist RT IMPRESSION: Mild degenerative change of the DIP joints of the index and middle finger. ? EXAMINATION:? XR ANKLE, RIGHT CLINICAL INFORMATION:? Pain in unspecified joint Questioning enthesopathy.?? COMPARISON:? None available.?? TECHNIQUE:? AP, lateral, and mortise views of the right ankle. FINDINGS:? No fracture. Alignment is anatomic. No erosions. Joint spaces are maintained. Tiny Achilles enthesophyte is noted.?? XR/XR ankle RT 2V IMPRESSION: Tiny Achilles enthesophyte. ? Ordering Physician: Soumya Pollock Date of Service: 12/25/22 Procedure(s): XR ankle LT 2V Accession Number(s): [id number] cc: PATRICIA PINA MD; Soumya Pollock~ EXAMINATION:? XR ANKLE, LEFT CLINICAL INFORMATION:? Pain in unspecified joint Question enthesopathy COMPARISON:? None available.?? TECHNIQUE:? AP, lateral, and mortise views of the left ankle. FINDINGS:? No fracture. Alignment is anatomic. No erosions. Joint spaces are maintained. Small Achilles enthesophyte is noted.?? XR/XR ankle LT 2V IMPRESSION: Small Achilles enthesophyte. ? Assessment & Plan Assessment & Plan (1) Non-radiographic axial spondyloarthritis: Comment: dx 01/2023. Was already in [facility] for UC Enbrel 02/2023 effective, DC 5 03/2023 due to increased anxiety & hypertension Code(s): M45.A0 - Non-radiographic axial spondyloarthritis of unspecified sites in spine Category: Medical Plan: This is a 57-year-old female with non radiographic axial spa who presents as a new patient for me. She used to follow-up with Soumya Pollock. Patient stopped her Enbrel 3-4 weeks ago due to wrist anxiety and worsening hypertension. Since she discontinued it she has been having worsening spinal and peripheral inflammatory arthritis. On exam she has multiple swollen and tender joints. Will need to restart DMARDs. At this point patient has been on sulfasalazine daily for her ulcerative colitis, it did not help her inflammatory arthritis, Enbrel was effective but caused worsening anxiety and hypertension. Will need to switch DMARDs. Discussed risks and benefits of Humira. Patient agreed to proceed. Will start prior authorization for Humira Labs today and before next visit in 3 months (2) skilled nursing (current) use of immunosuppressive biologic: Code(s): Z79.620 - skilled nursing (current) use of immunosuppressive biologic Category: Medical (3) History of ulcerative colitis: Comment: UC - on Sulfasalazine for over 10 years Code(s): Z87.19 - Personal history of other diseases of the digestive system Category: Medical Plan I spent 45 minutes reviewing patient's chart, evaluating patient, ordering diagnostic workup, counseling patient and documenting in the chart Orders: Orders Comprehensive Met. Panel Today M45.A0 - Non-radiographic axial spondyloarthritis of unspecified sites in spine C Reactive Protein Today M45.A0 - Non-radiographic axial spondyloarthritis of unspecified sites in spine Complete Blood Count Auto Diff Today M45.A0 - Non-radiographic axial spondyloarthritis of unspecified sites in spine Erythrocyte Sedimentation Rate Today M45.A0 - Non-radiographic axial spondyloarthritis of unspecified sites in spine HLA B27 Today M45.A0 - Non-radiographic axial spondyloarthritis of unspecified sites in spine Complete Blood Count Auto Diff 3 Months M45.A0 - Non-radiographic axial spondyloarthritis of unspecified sites in spine Comprehensive Met. Panel 3 Months M45.A0 - Non-radiographic axial spondyloarthritis of unspecified sites in spine Erythrocyte Sedimentation Rate 3 Months M45.A0 - Non-radiographic axial spondyloarthritis of unspecified sites in spine C Reactive Protein 3 Months M45.A0 - Non-radiographic axial spondyloarthritis of unspecified sites in spine Coding Level of Care Code Est Pt Level 5 (99942) Diagnoses Non-radiographic axial spondyloarthritis M45.A0 skilled nursing (current) use of immunosuppressive biologic Z79.620 History of ulcerative colitis Z87.19
[2023-08-15 09:29] VITALS: BP 140/72; PULSE 116; O2SAT 94; BMI 34.2
== END 2023-08-15 09:56 | disposition home or self-care (01) ==
PROVIDERS: PCP Internal Medicine; Visit Provider Student in an Organized Health Care Education/Training Program
DX: M45.A0 Non-radiographic axial spondyloarthritis of unspecified sites in spine (principal); Z79.620 Long term (current) use of immunosuppressive biologic; Z87.19 Personal history of other diseases of the digestive system
CPT/HCPCS: 99215

== ENCOUNTER → 2023-08-15 09:22 | Outpatient (BNVA) | payer BC, SELFPAY | PROVIDERS: PCP Internal Medicine; Visit Provider Student in an Organized Health Care Education/Training Program ==

== ENCOUNTER 2023-08-15 10:01 | Outpatient (REF) | payer BC, SELFPAY ==
[2023-08-15 10:46] LABS: MANUAL DIFF FLAG NO
[2023-08-15 10:52] LABS: Basophils Percent Auto 0.7 % (0-2); Eosinophils Absolute Auto 0.1 X10*3/uL (0.0-0.4); Eosinophils Percent Auto 2.9 % (0-4); Hematocrit 45.8 % (37.0-47.0); Hemoglobin 14.6 g/dl (12.0-16.0); Imm Gran Abs Auto 0.02 X10*3/uL (0.00-0.03); Imm Gran Pct Auto 0.4 % (0.0-0.4); Lymphocytes Absolute Auto 1.2 X10*3/uL (1.2-4.9); Lymphocytes Percent Auto 25.8 % (20-40); Mean Corpuscular HGB Conc 31.9 g/dl (31.0-35.0); Mean Corpuscular Volume 100.4 fL (80.0-98.0); Mean Platelet Volume 9.7 fL (9.4-12.3); Monocytes Absolute Auto 0.4 X10*3/uL (0.1-1.2); Monocytes Percent Auto 8.3 % (2-11); Neutrophils Absolute Auto 2.8 x10*3/uL (2.0-8.3); Neutrophils Percent Auto 61.9 % (45-73); Platelet Count 359 X10*3/uL (160-400); Red Blood Count 4.56 X10*6/uL (4.20-5.50); Red Cell Distribution Width 12.8 % (11.0-16.0); White Blood Count 4.5 X10*3/uL (4.8-10.8)
[2023-08-15 11:16] LABS: Alanine Aminotransferase 50 U/L (0-31); Albumin Level 4.7 g/dL (3.5-5.0); Alkaline Phosphatase 80 U/L (39-117); Anion Gap 12 (12-20); Aspartate Amino Transferase 33 U/L (5-31); Bilirubin Total 0.2 mg/dL (0.0-1.0); Blood Urea Nitrogen 19 mg/dL (9-16); C Reactive Protein 0.87 mg/dL (< or = 0.50); Calcium 10.1 mg/dL (8.4-10.2); Carbon Dioxide 28 mmol/L (22-29); Chloride 108 mmol/L (96-108); Estimated Glomerular Filt Rate > 60; Glucose Random 140 mg/dL (60-115); Potassium 4.7 mmol/L (3.3-5.1); Sodium 143 mmol/L (135-145); Total Protein 7.7 g/dL (6.5-8.0)
[2023-08-15 11:30] LABS: Erythrocyte Sedimentation Rate 6 MM/HR (0-20)
[2023-08-20 07:28] LABS: HLA B27 Negative (Negative)
== END 2023-08-15 10:02 | disposition home or self-care (01) ==
LOC: HO.10HDL 10:01
PROVIDERS: Visit Provider Student in an Organized Health Care Education/Training Program
DX: M45.A0 Non-radiographic axial spondyloarthritis of unspecified sites in spine (principal)
CPT/HCPCS: 36415; 80053; 85025; 85652; 86140; 86812

== ENCOUNTER 2023-11-18 09:17 | Outpatient (AMB) | payer BC, SELFPAY ==
--- NOTE | 2023-11-18 09:35 | A.OFFVIS_ITS ---
Vital Signs 11/18/23 09:45 Height 5 ft 7 in Weight 218 lb 4.122 oz BMI 34.2 BP 142/84 H Blood Pressure Location Rt brachial Position Sitting Pulse 96 Pulse Source Pulse Oximeter Pulse Oximetry (%) 95 Oxygen Delivery Method Room Air Intake Visit Reasons: AxSpA Intake Note: Patient presents for AxSpA. Allergies doxycycline Allergy (Intermediate, Verified 11/18/23 09:42) Stomach Upset ciprofloxacin [From Cipro] Adverse Reaction (Intermediate, Verified 11/18/23 09:42) Stomach Upset duloxetine [From Cymbalta] Adverse Reaction (Intermediate, Verified 11/18/23 09:42) Nausea etanercept [From Enbrel] Adverse Reaction (Intermediate, Verified 11/18/23 09:42) Anxiety hydromorphone [From Dilaudid] Adverse Reaction (Intermediate, Verified 11/18/23 09:42) Confusion morphine Adverse Reaction (Intermediate, Verified 11/18/23 09:42) Confusion Medication List - Last Reconciled 11/18/23 by Satish Flores MD bergamot extract (Alburtis Bergamot) mg PO cetirizine (All Day Allergy (cetirizine)) 10 mg PO DAILY PRN diclofenac sodium 1% grams topical doxycycline hyclate 100 mg PO BID fluticasone propionate 50 mcg/actuation (Allergy Relief (fluticasone)) 2 sprays intranasal DAILY folic acid 1 mg PO DAILY Humira(CF) Pen (adalimumab) 40 mg (0.4 mL) subcut Q2W NS hydroxychloroquine 100 mg PO DAILY lifitegrast 5% (Xiidra) drps ophthalmic (eye) multivitamin (Daily Multi-Vitamin tablet) 1 tab PO DAILY naltrexone mg PO omega 2-uts-shj-fish oil 60-90-500 mg (Fish Oil) 2 caps PO DAILY ondansetron HCl 4 mg PO Q8H red yeast rice 600 mg PO DAILY rosuvastatin 5 mg PO DAILY sertraline 100 mg PO DAILY sulfasalazine 1,000 mg PO TID tizanidine 4 mg PO BEDTIME vit B comp with C-calcium carb 300 mg-150 mg calcium (B-Complex Plus Vitamin C (and calcium)) 1 tab PO DAILY HPI Comments Details: This is a 57-year-old female non radiographic axial spa who presents for follow- up. She started Humira injections about 3 months ago. She states that she has had no side effects. But she is feels worse overall. Continues to have diffuse pains especially in her neck, shoulders, back, hands, ankles. 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 History of immunosuppressive therapy Osteoarthritis involving multiple joints on both sides of body DDD (degenerative disc disease), cervical Osteoporosis screening History of ulcerative colitis Inflammatory bowel arthritis Rosacea Osteoarthritis Nonalcoholic fatty liver Neck pain Ulcerative colitis Fibromyalgia Current mild episode of major depressive disorder without prior episode Hypercholesteremia Paresthesia Surgical History History of surgery Family History Mother Arthritis Other Hyperlipidemia, unspecified Social History Household Members: Spouse Household Members Other:: cat Alcohol intake: never Patient Tobacco Use Status: Never used Tobacco Current occupational status: employed Current occupation: [employer] Female Reproductive History Menstrual Total pregnancies: 4 Review of Systems ENT Reports neck pain Musc Reports back pain, Reports arthralgias, Reports joint swelling, Reports neck pain and Reports stiffness Physical Exam Vital Signs: Last Vital Signs Pulse 96 11/18/23 09:45 BP 142/84 H 11/18/23 09:45 Pulse Ox 95 11/18/23 09:45 Oxygen Delivery Method Room Air 11/18/23 09:45 BMI result Body Mass Index 34.2 Const General: cooperative, healthy appearing and comfortable Nutritional Appearance: obese Orientation/consciousness: patient oriented x3 Limitations: no limitations HEENT Head: Yes normocephalic and Yes atraumatic Mouth: moist mucous membranes Resp Effort & Inspection: normal respiratory effort and able to speak in complete sentences Cardio Rate: regular rate Rhythm: regular rhythm GI Inspection: No distended Palpation (GI): Soft to palpation and nontender Skin General skin exam: no rashes or lesions noted Neuro General: patient oriented x3 Extrem Other: Bilateral puffiness of fingers Bit 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 Pain in unspecified joint? COMPARISON:? None available.? TECHNIQUE:? 3 views of the sacroiliac joints FINDINGS: The bones are intact. No fracture. Alignment is anatomic. There are small marginal osteophytes at the inferior aspect of the left sacroiliac joint, otherwise the sacroiliac joint spaces are well-maintained without erosions or surrounding sclerosis. The cartilage spaces of the hips is well-maintained. There is mild degenerative change of the pubic symphysis. Incidental note is made of transitional lumbosacral vertebral body XR/XR sacroiliac joint 1-2V IMPRESSION: No significant abnormality of the sacroiliac joints. EXAMINATION: XR LUMBOSACRAL SPINE CLINICAL INFORMATION:? Pain in unspecified joint? COMPARISON:? None available.? TECHNIQUE:? Three views of the lumbosacral spine. FINDINGS: There are small riblets extending off the T12 vertebral body. There is a transitional lumbosacral vertebral body with sacralization on the right and for the purposes study will be called L5. There is mild disc space narrowing with marginal osteophyte formation at L2-L3. The L5-S1 disc space is narrow. There is mild retrolisthesis of L4 with respect to L5. There is degenerative facet joint disease at L5-S1. There is nonspecific cystic change in the facet of L5. XR/XR lumbar spine 2-3V IMPRESSION: 1.? Transitional lumbosacral vertebral body. 2.? Degenerative disc disease at L2-L3 and probably L5-S1 3.? Mild retrolisthesis of L4 with respect to L5. 4.? Degenerative facet joint disease at L5-S1. Ordering Physician: Soumya Pollock Date of Service: 12/25/22 Procedure(s): XR hand wrist RT Accession Number(s): [id number] cc: PATRICIA PINA MD; Soumya Pollock~ EXAMINATION:? XR WRIST, RIGHT XR HAND, RIGHT CLINICAL INFORMATION:? Pain in unspecified joint?? COMPARISON:? None available.?? TECHNIQUE:? PA, lateral, and oblique views of the right wrist and PA, lateral, and oblique views of the right hand. Dedicated navicular view FINDINGS:? RIGHT WRIST: The bones are intact. No fracture. Alignment is anatomic. Joint spaces are maintained. No erosions or soft tissue calcifications. ? RIGHT HAND: The bones are intact. No fracture. Alignment is anatomic. Mild degenerative change of the DIP joints of the index and middle finger. No erosions or soft tissue calcifications.?? XR/XR hand wrist RT IMPRESSION: Mild degenerative change of the DIP joints of the index and middle finger. ? EXAMINATION:? XR ANKLE, RIGHT CLINICAL INFORMATION:? Pain in unspecified joint Questioning enthesopathy.?? COMPARISON:? None available.?? TECHNIQUE:? AP, lateral, and mortise views of the right ankle. FINDINGS:? No fracture. Alignment is anatomic. No erosions. Joint spaces are maintained. Tiny Achilles enthesophyte is noted.?? XR/XR ankle RT 2V IMPRESSION: Tiny Achilles enthesophyte. ? [facility] Date of Service: 12/25/22 Procedure(s): XR ankle LT 2V Accession Number(s): [id number] cc: PATRICIA PINA MD; [facility]~ EXAMINATION:? XR ANKLE, LEFT CLINICAL INFORMATION:? Pain in unspecified joint Question enthesopathy COMPARISON:? None available.?? TECHNIQUE:? AP, lateral, and mortise views of the left ankle. FINDINGS:? No fracture. Alignment is anatomic. No erosions. Joint spaces are maintained. Small Achilles enthesophyte is noted.?? XR/XR ankle LT 2V IMPRESSION: Small Achilles enthesophyte. ? Assessment & Plan Assessment & Plan (1) Non-radiographic axial spondyloarthritis: Comment: dx 01/2023. Was already in [facility] for UC Enbrel 02/2023 DC 5 03/2023 due to increased anxiety & hypertension Humira 07/2023 DC 10/2023 ineffective Code(s): M45.A0 - Non-radiographic axial spondyloarthritis of unspecified sites in spine Category: Medical Plan: This is a 57-year-old female with non radiographic axial spa who presents for follow-up. She has been using Humira regularly for the last 3 months without improvement. Continues to have multiple tender joints. We will need to change DMARDs Discussed risks and benefits of Rinvoq. Discussed the black box warning of Rinvoq including increased cardiovascular events, increased malignancy risk and thromboembolic phenomenon. Patient agreed to proceed. I provided patient with 28 tablets as a sample. Advised patient to call the clinic after 3 weeks and let us know whether she feels better without side effects. If it was working well for her I will start prior authorization for Rinvoq Labs today and before next visit in 3 months (2) care home (current) use of immunosuppressive biologic: Code(s): Z79.620 - care home (current) use of immunosuppressive biologic Category: Medical Plan: Side effects of Rinvoq were discussed with the patient in detail including inc reased risk of infection, demyelinating disease, reactivation of latent TB, increased cardiovascular events and thromboembolic phenomenon, possible increased risk of solid and skin tumors. Patient fully aware. Advised patient to seek medical care KAYLEEN if patient has an infection and advised patient to stop the medication until the infection is resolved. (3) History of ulcerative colitis: Comment: UC - on Sulfasalazine for over 10 years Code(s): Z87.19 - Personal history of other diseases of the digestive system Category: Medical Plan I spent 60 minutes reviewing patient's chart, evaluating patient, ordering diagnostic workup, counseling patient, completing disability paperwork and documenting in the chart Orders: Orders 2 C Reactive Protein 3 Months M45.A0 - Non-radiographic axial spondyloarthritis of unspecified sites in spine Erythrocyte Sedimentation Rate 3 Months M45.A0 - Non-radiographic axial spondyloarthritis of unspecified sites in spine C Reactive Protein Today M45.A0 - Non-radiographic axial spondyloarthritis of unspecified sites in spine Erythrocyte Sedimentation Rate Today M45.A0 - Non-radiographic axial spondyloarthritis of unspecified sites in spine Complete Blood Count Auto Diff 3 Months M45.A0 - Non-radiographic axial spondyloarthritis of unspecified sites in spine Comprehensive Met. Panel 3 Months M45.A0 - Non-radiographic axial s pondyloarthritis of unspecified sites in spine Complete Blood Count Auto Diff Today M45.A0 - Non-radiographic axial spondyloarthritis of unspecified sites in spine Comprehensive Met. 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
[2023-11-18 09:45] VITALS: BP 142/84; PULSE 96; O2SAT 95; BMI 34.2
== END 2023-11-18 10:38 | disposition home or self-care (01) ==
PROVIDERS: PCP Internal Medicine; Visit Provider Student in an Organized Health Care Education/Training Program
DX: M45.A0 Non-radiographic axial spondyloarthritis of unspecified sites in spine (principal); Z79.620 Long term (current) use of immunosuppressive biologic; Z87.19 Personal history of other diseases of the digestive system
CPT/HCPCS: 99215; 99417

== ENCOUNTER → 2023-11-18 09:17 | Outpatient (BNVA) | payer BC, SELFPAY | PROVIDERS: PCP Internal Medicine; Visit Provider Student in an Organized Health Care Education/Training Program ==

== ENCOUNTER 2024-01-15 08:21 | Outpatient (AMB) | payer BC, SELFPAY ==
--- NOTE | 2024-01-15 08:42 | A.OFFVIS_ITS ---
Vital Signs 01/15/24 08:47 Height 5 ft 7 in Weight 222 lb 0.088 oz BMI 34.8 BP 144/74 H Blood Pressure Location Lt brachial Position Sitting Pulse 97 Pulse Source Pulse Oximeter Pulse Oximetry (%) 99 Oxygen Delivery Method Room Air Intake Visit Reasons: AxSpA/CM Intake Note: Patient presents for AxSpA. Allergies doxycycline Allergy (Intermediate, Verified 01/15/24 08:45) Stomach Upset ciprofloxacin [From Cipro] Adverse Reaction (Intermediate, Verified 01/15/24 08:45) Stomach Upset duloxetine [From Cymbalta] Adverse Reaction (Intermediate, Verified 01/15/24 08:45) Nausea etanercept [From Enbrel] Adverse Reaction (Intermediate, Verified 01/15/24 08:45) Anxiety hydromorphone [From Dilaudid] Adverse Reaction (Intermediate, Verified 01/15/24 08:45) Confusion morphine Adverse Reaction (Intermediate, Verified 01/15/24 08:45) Confusion Medication List - Last Reconciled 01/15/24 by Satish Flores MD bergamot extract (Louisa Bergamot) mg PO cetirizine (All Day Allergy (cetirizine)) 10 mg PO DAILY PRN diclofenac sodium 1% grams topical fluticasone propionate 50 mcg/actuation (Allergy Relief (fluticasone)) 2 sprays intranasal DAILY folic acid 1 mg PO DAILY lifitegrast 5% (Xiidra) drps ophthalmic (eye) multivitamin (Daily Multi-Vitamin tablet) 1 tab PO DAILY naltrexone mg PO omega 5-uvq-yxn-fish oil 60-90-500 mg (Fish Oil) 2 caps PO DAILY omeprazole 40 mg PO DAILY ondansetron HCl 4 mg PO Q8H prednisone 20 mg PO DAILY 5 days red yeast rice 600 mg PO DAILY Rinvoq ER (upadacitinib) 15 mg PO DAILY NS rosuvastatin 5 mg PO DAILY sertraline 100 mg PO DAILY sulfasalazine 1,000 mg PO TID tizanidine 4 mg PO BEDTIME vit B comp with C-calcium carb 300 mg-150 mg calcium (B-Complex Plus Vitamin C (and calcium)) 1 tab PO DAILY HPI Comments Details: This is a 57-year-old female non radiographic axial spa who presents for follow- up. Last visit I provided patient with Rinvoq samples. She states that it helped her with the fatigue. Her Rinvoq has been denied. I recently appeal it. She presents today for an urgent visit due to right wrist pain. She has pain on the radial aspect of her right wrist. This started about 2 weeks ago. She states that this has been a problem for a few years. She has received a couple of cortisone injections. The last injection was done about a year ago by Soumya Mooney and it provided reasonable relief. She states that she had similar problem affecting her left hand. And she had a procedure for it about 6 years ago. 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 History of immunosuppressive therapy Osteoarthritis involving multiple joints on both sides of body DDD (degenerative disc disease), cervical Osteoporosis screening History of ulcerative colitis Inflammatory bowel arthritis Rosacea Osteoarthritis Nonalcoholic fatty liver Neck pain Ulcerative colitis Fibromyalgia Current mild episode of major depressive disorder without prior episode Hypercholesteremia Paresthesia Surgical History History of surgery Family History Mother Arthritis Other Hyperlipidemia, unspecified Social History Household Members: Spouse Household Members Other:: cat Alcohol intake: never Patient Tobacco Use Status: Never used Tobacco Current occupational status: employed Current occupation: [employer] Female Reproductive History Menstrual Total pregnancies: 4 Review of Systems [facility] Reports arthralgias, Reports joint swelling and Reports stiffness Physical Exam Vital Signs: Last Vital Signs Pulse 97 01/15/24 08:47 BP 144/74 H 01/15/24 08:47 Pulse Ox 99 01/15/24 08:47 Oxygen Delivery Method Room Air 01/15/24 08:47 BMI result Body Mass Index 34.8 Const General: cooperative, healthy appearing and comfortable Nutritional Appearance: obese Orientation/consciousness: patient oriented x3 Limitations: no limitations HEENT Head: Yes normocephalic and Yes atraumatic Mouth: moist mucous membranes Resp Effort & Inspection: normal respiratory effort and able to speak in complete sentences Skin General skin exam: no rashes or lesions noted Neuro General: patient oriented x3 Extrem Other: Osteoarthritic changes of both hands with prominent Heberden's and Tayler's nodes Diffusely tender PIP is and DIP is without any significant swelling Positive Sherry test on the right Few fibromyalgia tender points Assessment & Plan Assessment & Plan (1) Non-radiographic axial spondyloarthritis: Comment: dx 01/2023. Was already in [facility] for UC Enbrel 02/2023 DC 5 03/2023 due to increased anxiety & hypertension Humira 07/2023 DC 10/2023 ineffective Code(s): M45.A0 - Non-radiographic axial spondyloarthritis of unspecified sites in spine Category: Medical Plan: This is a 58-year-old female with non radiographic axial spa who presents for follow-up. Provided patient with one-month supply sample of Rinvoq. Per patient it helped with her fatigue. We started prior authorization for Rinvoq. It has been denied. I appealed it. We have not received a response yet. 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 Patient fully aware. Advised patient to seek medical care KAYLEEN if patient has an infection and advised patient to stop the medication until the infection is resolved. (3) History of ulcerative colitis: Comment: UC - on Sulfasalazine for over 10 years Code(s): Z87.19 - Personal history of other diseases of the digestive system Category: Medical (4) De Quervain's tenosynovitis, right: Code(s): M65.4 - Radial styloid tenosynovitis [de Quervain] Category: Medical Plan: History of tendon release on the left hand. Per patient symptoms have been ongoing for her right hand for a few years. She has received a couple of steroid injections. Last of which was about a year ago and it provided some relief. Discussed with patient the nature of de Quervain tenosynovitis. It is an overuse tendonitis. Advised patient to rest the hand. Continue to use the thumb spica splint. Apply Voltaren gel 4 times daily, ice the joint Start prednisone 20 mg daily for 5 days Advised patient to call her hand surgeon for an appointment Plan I spent 30 minutes reviewing patient's chart, evaluating patient, ordering diagnostic workup, counseling patient, and documenting in the chart Medications: New prednisone 20 mg PO DAILY 5 days 5 tabs 0RF Coding Level of Care Code Est Pt Level 4 (15065) Diagnoses Non-radiographic axial spondyloarthritis M45.A0 custodial (current) use of immunosuppressive biologic Z79.620 History of ulcerative colitis Z87.19 De Quervain's tenosynovitis, right M65.4
[2024-01-15 08:47] VITALS: BP 144/74; PULSE 97; O2SAT 99; BMI 34.8
== END 2024-01-15 09:03 | disposition home or self-care (01) ==
PROVIDERS: PCP Internal Medicine; Visit Provider Student in an Organized Health Care Education/Training Program
DX: M45.A0 Non-radiographic axial spondyloarthritis of unspecified sites in spine (principal); Z79.620 Long term (current) use of immunosuppressive biologic; Z87.19 Personal history of other diseases of the digestive system; M65.4 Radial styloid tenosynovitis [de Quervain]
CPT/HCPCS: 99214

== ENCOUNTER → 2024-01-15 08:21 | Outpatient (BNVA) | payer BC, SELFPAY | PROVIDERS: PCP Internal Medicine; Visit Provider Student in an Organized Health Care Education/Training Program ==

== ENCOUNTER 2024-03-02 09:49 | Outpatient (AMB) | payer BC, SELFPAY ==
--- NOTE | 2024-03-02 09:55 | MHC.OFFVIS ---
Vital Signs 03/02/24 10:03 Height 5 ft 7 in Weight 217 lb 6.012 oz BMI 34.0 BP 152/100 H Blood Pressure Location Lt brachial Position Sitting Pulse 85 Pulse Source Pulse Oximeter Pulse Oximetry (%) 97 Oxygen Delivery Method Room Air Intake Visit Reasons: AxSpA Intake Note: Patient presents for AxSpA. Allergies doxycycline Allergy (Intermediate, Verified 03/02/24 09:59) Stomach Upset pregabalin [From Lyrica] Adverse Reaction (Severe, Verified 03/02/24 10:31) Fatigued ciprofloxacin [From Cipro] Adverse Reaction (Intermediate, Verified 03/02/24 09:59) Stomach Upset duloxetine [From Cymbalta] Adverse Reaction (Intermediate, Verified 03/02/24 09:59) Nausea etanercept [From Enbrel] Adverse Reaction (Intermediate, Verified 03/02/24 09:59) Anxiety hydromorphone [From Dilaudid] Adverse Reaction (Intermediate, Verified 03/02/24 09:59) Confusion morphine Adverse Reaction (Intermediate, Verified 03/02/24 09:59) Confusion Medication List - Last Reconciled 03/02/24 by Satish Flores MD bergamot extract ([place] Bergamot) mg PO cetirizine (All Day Allergy (cetirizine)) 10 mg PO DAILY PRN diclofenac sodium 1% grams topical fluticasone propionate 50 mcg/actuation (Allergy Relief (fluticasone)) 2 sprays intranasal DAILY folic acid 1 mg PO DAILY hydroxychloroquine 200 mg PO DAILY lifitegrast 5% (Xiidra) drps ophthalmic (eye) multivitamin (Daily Multi-Vitamin tablet) 1 tab PO DAILY naltrexone mg PO omega 5-ioh-gnl-fish oil 60-90-500 mg (Fish Oil) 2 caps PO DAILY omeprazole 40 mg PO DAILY ondansetron HCl 4 mg PO Q8H red yeast rice 600 mg PO DAILY rosuvastatin 5 mg PO DAILY sertraline 100 mg PO DAILY sulfasalazine 1,000 mg PO TID tizanidine 4 mg PO BEDTIME vit B comp with C-calcium carb 300 mg-150 mg calcium (B-Complex Plus Vitamin C (and calcium)) 1 tab PO DAILY HPI Comments Details: This is a 58-year-old female non radiographic axial spa who presents for follow-up. She had surgery for right de Quervain tenosynovitis about 2 weeks ago. She was also started on Wegovy 2 weeks ago. She states that her generalized achiness is about the same. 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 History of immunosuppressive therapy Osteoarthritis involving multiple joints on both sides of body DDD (degenerative disc disease), cervical Osteoporosis screening History of ulcerative colitis Inflammatory bowel arthritis Rosacea Osteoarthritis Nonalcoholic fatty liver Neck pain Ulcerative colitis Fibromyalgia Current mild episode of major depressive disorder without prior episode Hypercholesteremia Paresthesia Surgical History H/O wrist surgery History of surgery Family History Mother Arthritis Other Hyperlipidemia, unspecified Social History Household Members: Spouse Household Members Other:: cat Alcohol intake: never Patient Tobacco Use Status: Never used Tobacco Current occupational status: employed 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 Female Reproductive History Menstrual Total pregnancies: 4 Review of Systems Musc Reports joint swelling and Reports stiffness Physical Exam Vital Signs: Last Vital Signs Pulse 85 03/02/24 10:03 BP 152/100 H 03/02/24 10:03 Pulse Ox 97 03/02/24 10:03 Oxygen Delivery Method Room Air 03/02/24 10:03 BMI result Body Mass Index 34.0 Const General: cooperative, healthy appearing and comfortable Nutritional Appearance: obese Orientation/consciousness: patient oriented x3 Limitations: no limitations HEENT Head: Yes normocephalic and Yes atraumatic Mouth: moist mucous membranes Resp Effort & Inspection: normal respiratory effort and able to speak in complete sentences Skin General skin exam: no rashes or lesions noted Neuro General: patient oriented x3 Extrem Other: Right hand and wrist in a splint Significant osteoarthritic changes of hand Multiple tender PIP is and DIPs No knee pain with full flexion-extension bilaterally Few fibromyalgia tender points Assessment & Plan Assessment & Plan (1) Non-radiographic axial spondyloarthritis: Comment: dx 01/2023. Was already in [facility] for UC Enbrel 02/2023 DC 5 03/2023 due to increased anxiety & hypertension Humira 07/2023 DC 10/2023 ineffective Rinvoq sample for one-month 10/2023, only helped with fatigue Code(s): M45.A0 - Non-radiographic axial spondyloarthritis of unspecified sites in spine Category: Medical Plan: This is a 58-year-old female with non radiographic axial spa who presents for follow-up. She remains on sulfasalazine prescribed by other providers. For her MSK complaints, other DMARDs were tried including Enbrel, Humira, and Rinvoq all without any significant relief. At this time I would not add any additional DMARDs Patient recently started Wegovy, it has been prescribed not only for weight loss but for possible anti inflammatory/immune modulatory effects Labs before next visit in 6 months (2) Fibromyalgia, primary: Code(s): M79.7 - Fibromyalgia Category: Medical Plan: Discussed management of fibromyalgia with patient. Is a noninflammatory, non-autoimmune central afferent processing disorder leading to a diffuse pain syndrome. Patient states that she has had a sleep study within the last 2 years and it did not show sleep apnea. Advised patient to start doing some light exercises, consider aquatherapy or swimming She had multiple side effects to multiple medications such as Lyrica, gabapentin, baclofen, Cymbalta Plan I spent 20 minutes reviewing patient's chart, evaluating patient, ordering diagnostic workup, counseling patient, and documenting in the chart Orders: Orders Complete Blood Count Auto Diff 6 Months M45.A0 - Non-radiographic axial spondyloarthritis of unspecified sites in spine C Reactive Protein 6 Months M45.A0 - Non-radiographic axial spondyloarthritis of unspecified sites in spine Comprehensive Met. Panel 6 Months M45.A0 - Non-radiographic axial spondyloarthritis of unspecified sites in spine Erythrocyte Sedimentation Rate 6 Months M45.A0 - Non-radiographic axial spondyloarthritis of unspecified sites in spine Medications: Discontinued prednisone Discontinued Reason: Patient Completed Course 20 mg PO DAILY 5 days 5 tabs 0RF Coding Level of Care Code Est Pt Level 4 (58629) Diagnoses Non-radiographic axial spondyloarthritis M45.A0 Fibromyalgia, primary M79.7
[2024-03-02 10:03] VITALS: BP 152/100; PULSE 85; O2SAT 97; BMI 34.0
== END 2024-03-02 10:29 | disposition home or self-care (01) ==
PROVIDERS: PCP Internal Medicine; Visit Provider Student in an Organized Health Care Education/Training Program
DX: M45.A0 Non-radiographic axial spondyloarthritis of unspecified sites in spine (principal); M79.7 Fibromyalgia
CPT/HCPCS: 99214

== ENCOUNTER → 2024-03-02 09:49 | Outpatient (BNVA) | payer BC, SELFPAY | PROVIDERS: PCP Internal Medicine; Visit Provider Student in an Organized Health Care Education/Training Program ==

== ENCOUNTER 2024-04-06 14:48 | Outpatient (AMB) | payer BC, SELFPAY ==
--- NOTE | 2024-04-06 14:51 | A.OFFVIS_ITS ---
Intake Visit Reasons: dflma paperwork/ AxSpA Intake Note: Patient presents for DFLMA paperwork. Allergies doxycycline Allergy (Intermediate, Verified 03/02/24 09:59) Stomach Upset pregabalin [From Lyrica] Adverse Reaction (Severe, Verified 03/02/24 10:31) Fatigued ciprofloxacin [From Cipro] Adverse Reaction (Intermediate, Verified 03/02/24 09:59) Stomach Upset duloxetine [From Cymbalta] Adverse Reaction (Intermediate, Verified 03/02/24 09:59) Nausea etanercept [From Enbrel] Adverse Reaction (Intermediate, Verified 03/02/24 09:59) Anxiety hydromorphone [From Dilaudid] Adverse Reaction (Intermediate, Verified 03/02/24 09:59) Confusion morphine Adverse Reaction (Intermediate, Verified 03/02/24 09:59) Confusion Medication List - Last Reconciled 04/06/24 by Olga Robles MD bergamot extract ([place] Bergamot) mg PO cetirizine (All Day Allergy (cetirizine)) 10 mg PO DAILY PRN diclofenac sodium 1% grams topical fluticasone propionate 50 mcg/actuation (Allergy Relief (fluticasone)) 2 sprays intranasal DAILY folic acid 1 mg PO DAILY hydroxychloroquine 200 mg PO DAILY lifitegrast 5% (Xiidra) drps ophthalmic (eye) multivitamin (Daily Multi-Vitamin tablet) 1 tab PO DAILY naltrexone mg PO omega 9-wdw-uer-fish oil 60-90-500 mg (Fish Oil) 2 caps PO DAILY omeprazole 40 mg PO DAILY ondansetron HCl 4 mg PO Q8H red yeast rice 600 mg PO DAILY rosuvastatin 5 mg PO DAILY sertraline 100 mg PO DAILY sulfasalazine 1,000 mg PO TID tizanidine 4 mg PO BEDTIME ustekinumab (Stelara) 90 mg subcut Q8W vit B comp with C-calcium carb 300 mg-150 mg calcium (B-Complex Plus Vitamin C (and calcium)) 1 tab PO DAILY HPI Comments Details: Patient is a 58-year-old female with ulcerative colitis complicated by non radiographic axial spondylitis, hyperlipidemia, fibromyalgia and polyarticular osteoarthritis here today for follow up Interval History: Patient last seen 03/02/[address] Flores. At that time patient had had some improvement in her fatigue on the Rinvoq but her insurance denied further prescriptions. Patient was taken off all medications and refer to a naturopathic doctor who is currently trying alternative treatments to decrease her inflammation. She is here today for completion of her FMLA paperwork Rheumatologic History: Non radiographic axial spondyloarthritis dx 01/2023. 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 History of immunosuppressive therapy Osteoarthritis involving multiple joints on both sides of body DDD (degenerative disc disease), cervical Osteoporosis screening History of ulcerative colitis Inflammatory bowel arthritis Rosacea Osteoarthritis Nonalcoholic fatty liver Neck pain Ulcerative colitis Fibromyalgia Current mild episode of major depressive disorder without prior episode Hypercholesteremia Paresthesia Surgical History H/O wrist surgery History of surgery Family History Mother Arthritis Other Hyperlipidemia, unspecified Social History Household Members: Spouse Household Members Other:: cat Alcohol intake: never Patient Tobacco Use Status: Never used Tobacco Current occupational status: employed 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 Review of Systems Const Details: Review of Systems Constitutional: Denies fever, chills, weight loss ENT: Denies vision changes, eye pain or eye redness, dental caries, dry mouth GI: Denies nausea, vomiting, diarrhea, abdominal pain, change in BM Pulm: Denies SOB, JONES, hemoptysis, wheezing Cards: Denies chest pain, palpitations Skin: Denies Raynaud's, rash, nail changes, photosensitivity, BUYER TOBACCO HEAD: Denies headaches, weakness, paresthesias, recurrent falls MSK: as per HPI All other systems reviewed and are unremarkable except noted above Physical Exam Physical Examination CONSTITUITIONAL Patient alert and cooperative. Well appearing and in no apparent painful distress HEENT Conjunctiva and sclera clear. ?Pupils equal round and reactive to light. ?No lymphadenopathy. ? CHEST/RESPIRATORY SYSTEM Normal respiratory effort and able to speak in complete sentences. ?Clear to auscultation bilaterally. ?No crackles, rales, rhonchi, wheezes heard. CARDIAC SYSTEM Regular rate and rhythm. ?S1 and S2 heard no murmurs. 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 No deformities noted. ?No synovitis noted to the MCPs, PIPs or DIPs. ?No tenderness to palpation of these joints. Wrists: ?Full range of motion at the wrists without pain. ?No tenderness to palpation or synovitis noted to the wrists. Elbows: Full range of motion without pain. No tenderness, weakness, swelling, increased warmth or erythema. Shoulders: Full range of motion without pain. No tenderness, weakness, swelling, increased warmth or erythema. Hips: Full range of motion without pain. Hip bursa: No tenderness to palpation Knees: ?Full range of motion. ?No tenderness, swelling, increased warmth or erythema.?No effusion or crepitations Ankles: Full range of motion. ?No tenderness, swelling, increased warmth or erythema.? Feet: ?Negative squeeze test. ?No tenderness to palpation or swelling of the MTPs. Tender points:?No tenderness to palpation of the bilateral trapezius, macias praspinatus, greater trochanters, anterior costochondral junctions, bilateral gluteal areas, bilateral suboccipital muscle insertions Patient has abnormal modified Vince's test SKIN Skin intact without rashes. Results Reviewed Results Reviewed: [facility] scanned results reviewed 01/30/2024 Inflammatory markers ESR and CRP both normal AST and ALT elevated Assessment & Plan Assessment & Plan (1) Non-radiographic axial spondyloarthritis: Comment: dx 01/2023. Was already in [facility] for UC Enbrel 02/2023 DC 5 03/2023 due to increased anxiety & hypertension Humira 07/2023 DC 10/2023 ineffective Rinvoq sample for one-month 10/2023, only helped with fatigue Code(s): M45.A0 - Non-radiographic axial spondyloarthritis of unspecified sites in spine Category: Medical Plan: #Non radiographic axial spondyloarthritis Patient is a 58-year-old female with done radiographic axial spondyloarthritis affecting all levels of her spine from her C-spine to her L/S spine. She has tried Enbrel, Humira was of great efficacy. Unfortunately Rinvoq was denied even on appeal. 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 Benefits include improved disease activity decreased occurrence of flares. Risks include hypersensitivity reactions, increased risk of infection increased risk of malignancy, reactivation of TB, posterior reversible encephalopathy syndrome including altered mental status, confusion, headaches, seizures, visual disturbances and imaging changes. Plan I spent 30 minutes reviewing the record and labs, taking a history, examining the patient, discussing the treatment plan and documenting in the medical record Orders: Referrals Infusion Center Notification K51.90 - Ulcerative colitis, unspecified, without complications, M45.A0 - Non-radiographic axial spondyloarthritis of unspecified sites in spine Infusion Center Notification K51.90 - Ulcerative colitis, unspecified, without complications, M45.A0 - Non-radiographic axial spondyloarthritis of unspecified sites in spine Medications: New ustekinumab (Stelara) 90 mg subcut Q8W 1 mL 1RF K51.90 - Ulcerative colitis, unspecified, without complications, M45.A0 - Non-radiographic axial spondyloarthritis of unspecified sites in spine ustekinumab (Stelara) 90 mg subcut Q8W 1 mL 1RF K51.90 - Ulcerative colitis, unspecified, without complications, M45.A0 - Non-radiographic axial spondyloarthritis of unspecified sites in spine Coding Level of Care Code Est Pt Level 4 (53389) Complex EM visit Add On G2211 Diagnoses Non-radiographic axial spondyloarthritis M45.A0 [facility] (current) use of immunosuppressive biologic Z79.620
--- OUTSIDE RECORDS SUMMARY | 2024-04-06 15:40 | XMS_ITS | Continuity of Care Document ---
Author Organization [facility], D[facility] [address] Floor Address [address] [place] [address] Care Team Providers Care Control And Recovery Special Tactics Name Role Phone PATRICIA PINA Primary Care Provider [phone] Assessment Encounter Date Assessment Date Assessment LastModified by Organization Details LastModified Time 03/29/2024 03/29/2024 A/ status post right wrist first dorsal compartment release performed 02/17/2024. P/ Findings reviewed with the patient. 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 This is expected to improve with time. If these symptoms persist, cortisone injection could be performed in the future. [email or web address] Not available 03/29/2024 10:12:38 Plan of Treatment Reminders Order Date Submit Date Provider Last Modified By Organization Details Last Modified Time Details Appointments None record ed. Lab None record ed. Referral None record ed. Procedures None record ed. Surgeries None record ed. Imaging None record ed. Medication Orders None record ed. Patient TargetsNo targets recorded. Patient InstructionsNo instructions recorded. Reason for Referral None Reported. Problems Name Problem SNOMED Code Status Onset Date Resolution Date Notes Provider Name and Address Organization Details Recorded Time Radial styloid tenosynovitis 89149796 Active 2020 Status : 'A'; Not Available [facility] 10[facility] Problem Notes None recorded. Procedures Surgical History Date Name Laterality Status Provider Name and Address Organization Details Recorded Time 4 Sports Shoulder 4&1 cancelled Júnior Constantino MD [address], [place], [address], [facility] - [facility] 09/22/2023 10:10:16 Imaging Results None recorded. Procedure Notes None recorded. Medical Equipment None Reported. Allergies Allergen ID Allergen Name Allergen Category Reaction Reaction Severity Criticality Documentation Date Start Date Code Code System Note Provider Name and Address Organization Details Recorded Time 162242 Vibramyci n medicatio n Not available Not available Not available 09/19/2023 5 RxNorm AMARA VANCE [facility] [place] - [facility] 4 09:56:53 46975 Cipro medicatio n Not available Not available Not available 04/28/2023201056 3 RxNorm Not Available [facility] 4 15:13:11 95017 acetamino phen / oxycodone medicatio n Not available Not available Not available 04/28/2023202018 3 RxNorm Not Available [facility] 4 15:13:11 Medications Name Sig Start Date Stop Date Status Note LastModified by Organization Details LastModified Time amoxicillin 500 mg capsule TAKE 1 CAPSULE BY MOUTH THREE TIMES A DAY FOR 7 DAYS active Not Available Not Available N ot Available doxycycline hyclate 100 mg capsule TAKE 1 CAPSULE BY MOUTH TWICE A DAY active Not Available Not Available No t Available sulfasalazin e 500 mg tablet TAKE 2 TABLETS BY MOUTH 3 TIMES A DAY active Not Available Not Available Not Available cetirizine 10 mg tablet TAKE 1 TABLET BY MOUTH TWICE A DAY FOR 7 DAYS active Not Available Not Available No t Available tizanidine 4 mg tablet 1 TAB(S) ORALLY DAILY AT BEDTIME 90 DAYS active Not Available Not Available No t Available ondansetron HCl 4 mg tablet TAKE 1 TABLET BY MOUTH EVERY 8 HOURS active Not Available Not Available No t Available prednisone 20 mg tablet TAKE 1 TABLET BY MOUTH EVERY DAY FOR 5 DAYS active Not Available Not Available No t Available sertraline 100 mg tablet TAKE 1 TABLET BY MOUTH EVERY DAY FOR 90 DAYS active Not Available Not Available No t Available prednisone 5 mg tablet TAKE 3 TABLETS BY MOUTH DAILY X 7 DAYS,THEN 2 TABLETS X 7 DAYS,THEN 1 TABLET X 7 DAYS THEN STOP active Not Available Not Available No t Available omeprazole 40 mg capsule,abiola yed release TAKE 1 CAPSULE BY MOUTH EVERY DAY active Not Available Not Available No t Available amoxicillin 875 mg tablet TAKE 1 TABLET BY MOUTH TWICE A DAY active Not Available Not Available No t Available pseudoephedr ine-guaifene sin ER 80-700 mg tablet,exten ded release DO NOT DRIVE WHILE ON THIS MEDICATION 2014 active Statu s: 'Curr ent'; Not Available Not Available Not Available hydroxychlor oquine 200 mg tablet TAKE 1 TABLET BY MOUTH EVERY DAY active Not Available Not Available No t Available ipratropium bromide 42 mcg (0.06 %) nasal spray PLEASE SEE ATTACHED FOR DETAILED DIRECTIONS active Not Available Not Available N ot Available fluticasone propionate 50 mcg/actuatio n nasal spray,suspen sabino INHALE 1 SPRAY INTRANASALL Y TWICE DAILY active Not Available Not Available No t Available sertraline 50 mg tablet TAKE 1 TABLET BY MOUTH EVERY DAY FOR 90 DAYS active Not Available Not Available No t Available rosuvastatin 5 mg tablet TAKE 1 TABLET BY MOUTH EVERY DAY FOR 90 DAYS active Not Available Not Available No t Available sulfasalazin e sulfaSALAzi ne 500MG Tablet 2022 active Statu s: 'Curr ent'; Not Available Not Available Not Available hydrocodone 5 mg-acetamino phen 300 mg tablet TAKE 1 TABLET BY MOUTH EVERY 8 HOURS NEEDED FOR PAIN active Not Available Not Available No t Available Enbrel SureClick 50 mg/mL (1 mL) subcutaneous pen injector active Not Available Not Available Not Available diclofenac 1 % topical gel APPLY TOPICALLY 4 TIMES A DAY DIRECTED active Not Available Not Available Not Available GaviLyte-G 236 gram-22.74 gram-6.74 gram-5.86 gram oral solution TAKE 8 OUNCE BY MOUTH DIRECTED active Not Available Not Available No t Available Xiidra 5 % eye drops in a dropperette INSTILL ONE DROP TWICE A DAY INTO BOTH EYES active Not Available Not Available No t Available Humira(CF) Pen 40 mg/0.4 mL subcutaneous kit active Not Available Not Available Not Available Wegovy 0.25 mg/0.5 mL subcutaneous pen injector active Not Available Not Available Not Available Vitals Date Recorded Body height Body mass index (BMI) Body weight Provider Name and Address Organization Details Last Updated DateTime 03/29/2024 170.18 cm 32.9 kg/m2 [address] [place] - [facility] 03/29/2024 09:49:25 Social History None recorded. Functional Status None recorded. Mental Status None recorded. Family History Nothing Reported. Medical History Condition Response Allergies/Hayfever N Coronary Artery Disease N Anxiety/Depression N Breathing or lung disorders N Emphysema N Nerve Disorders N Thyroid Problems N COPD N Pacemaker N Anemia N Kidney/Bladder Problems N Vascular Disease N Heart Trouble N Heart Attack ([place]) N Gastrointestinal Disease N Cholesterol Y Diabetes N Autoimmune disease N Bleeding Disorder N Orthotics N Arthritis Y Seizures/Epilepsy N Blood Clot N AIDS/HIV N Congestive Heart Failure (CHF) N Acid Reflux (GERD) N Cancer N Stroke N Asthma N Circulation Problems N Peripheral Vascular Disease N Sleep Apnea N Hepatitis N Heart Disease N Rheumatoid Arthritis N Arrhythmia N Pulmonary Embolism N Headaches N Fibromyalgia Y Hypertension N Osteoporosis N Gynecological HistoryNo gynecological history recorded. Obstetrics History GPAL:G 0 P 0 0 0 0 Past Encounters Encounter ID Performer Location Encounter Start Date Encounter Closed Date Diagnosis/Indication Diagnosis SNOMED-CT Code Diagnosis ICD10 Code Diagnosis Note [id number] Zuly Hebert, OTR/L,[facility] [address] [place] [address] 03/01/2024 10:27:10 03/01/2024 12:29:03 Tenosynovitis of right radial styloid [id number] 1334545 M65.4 This visit was completed today under the supervisio n of Dr. Rafa latif. Examinatio n: Upon removal of the postop dressing, the incision is inspected. It is found to be clean and dry with an intact running suture with tails and Steri-Stri ps. Patient has intact neurovascu lar structures with only slight tenderness along the sides of the incision. No surroundin g erythema, wound drainage, warmth or signs of infection. There is typical slight palpable postoperat meka edema just surroundin g the incision. The patient states only slight radial forearm proximal muscle pain. Active range of motion is limited as expected however the patient is able to show midrange of wrist and thumb active range of motion and does have full motion of the digits with full sensation throughout the hand. Impression : 14 days status post left first dorsal compartmen t release Postoperative visit [id number] Z48.89 Plan: Surgical dressing is removed and the suture tails are clipped as well as the Steri-Stri ps are removed. The patient does have a vasovagal response to this and requires additional time to recover. Scar massage was instructed with a handout given to the patient today. Home exercises focusing on gentle wrist and thumb active range of motion were also reviewed. Patient has brought the previously issued Velcro wrist and thumb immobiliza tion orthosis to provide support and stability to the radial wrist and thumb. This orthosis may be worn in the community or during certain activities or at night to help provide some stability to her thumb. Today dressing is simply a Large Band-Aid and a cotton stockinett e cover. The patient is given the following instructio ns:you may start to use the hand functional ly for light activities but to avoid any lifting or pinching at this time; do not to lift anything heavier than a coffee cup with the involved extremity; remain non weight bearing on the involved upper extremity; continue participat ing in active range of motion exercises without straining for the next 4 weeks. If any redness, swelling, drainage or do appear from the incision site, the patient was instructed to call us immediatel y. At the next appointmen t the patient will meet with the surgeon at 6 weeks postop. [id number] MD [facility] [address] [place] [address] 03/29/2024 09:34:04 03/29/2024 10:12:51 Tenosynovitis of right radial styloid [id number] 9171684 M65.4 Radial sty loid tenosynovitis 07301162 M65.4 Health Concerns Section Related Observation LastModified by Organization Detai ls LastModified Time None Recorded Concern Status LastModified by Organization Details LastModified Time None Recorded Payers Encounter Date Sequence Insurance Name Policy Number Policy Plummer Covered Member ID Plummer Member ID Guarantor Name 03/29/2024 1 BS-CO: [employer] [facility] [employer] German Ulloa [id number] Elodia Ulloa Notes Date Note Type Note Provider Name and Address Organization Details Recorded Time 03/29/2024 text/html Patient is a 58-year-old female seen for postoperative evaluation status post right wrist first dorsal compartment release performed 02/17/2024. Her wrist is doing well, she developed a small bump on the volar radial aspect of her thumb IP joint which is right at the level of the end of the temporary thumb spica splint. She has no locking with IP range of motion but this is the most bothersome area of her hand or wrist at this time. Sangita Campbell MD [address] [place] [address] [address], [place], [address], [facility] 03/29/2024 10:12:49 OBGyn Episode No OBEpisode recorded.
--- OUTSIDE RECORDS SUMMARY | 2024-04-06 15:40 | XMS_ITS | Encounter Summary ---
Author Organization [facility] Address [address] [place] [phone] Care Team Providers Care Summer Counselor Name Role Phone Rafat Crane MD Primary Care Provider [phone] Reason for Visit * Imaging (Routine) - Closed Specialty Diagnoses / Procedures Referred By Gaetano anderson Referred To Contact Radiology Diagnoses Encounter for screening mammogram for breast cancer Procedures MG Mammo Digital Screening w Ibrahima bilat MG Mammo Digital Screening Ml Huddleston MD [address] [place] [address] [place] [address] Phone: tel: fax: [address] [address] Phone: tel: Referral ID Status Reason Start Date Expiration Date Visits Re quested Visits Authorized [id number] Closed 03/12/2024 03/12/2025 1 1 Encounter Details Date Type Department Care Team (Latest Contact Info) Description 03/31/2024 10:07 AM EST - 03/31/2024 11:59 PM [facility] Hospital Encounter [facility] [address] [address] Encounter for screening mammogram for breast cancer Discharge Disposition: Home or Self Care Social History Tobacco Use Types Packs/Day Years Used Date Smoking Tobacco: Never Smokeless Tobacco: Never Alcohol Use Standard Drinks/Week Comments Never 0 (1 standard drink = 0.6 oz pur e alcohol) Interpersonal Safety Answer Date Record ed Physical Abuse 01/26/2024 Verbal Abuse 01/26/2024 Comments No Sex and Gender Information Value Date Recorded Sex Assigned at Female 01/30/2024 3:01 PM EST Legal Sex Female 3:15 AM EST Gender Identity Female 01/30/2024 3:01 PM EST Sexual Orientation Choose not to disclose 2024 1:23 PM EST documented as of this encounter Last Filed Vital Signs Vital Sign Reading Time Taken Comments Blood Pressure - - Pulse - - Temperature - - Respiratory Rate - - Oxygen Saturation - - Inhaled Oxygen Concentration - - Weight 95.3 kg (210 lb) 03/31/2024 10:35 AM EST Height 170.2 cm (5' 7 ) 03/31/2024 10:35 AM EST Body Mass Index 32.89 03/31/2024 10:35 AM EST documented in this encounter Medications at Time of Discharge bergamot extract (Constantine Bergamot) 500 mg capsule Take 1 tablet by mouth 1 (one) time each day. calcium carbonate-vitamin D3 600 mg-12.5 mcg (500 unit) capsule Take 1 tablet by mouth 1 (one) time each day. ferrous sulfate 324 mg (65 mg elemental iron) EC tablet Take 1 tablet (324 mg total) by mouth 1 (one) time each day. Do not crush, chew, or split. folic acid (FOLVITE) 1 mg tablet Take 1 tablet (1 mg total) by mouth 1 (one) time each day. lifitegrast (Xiidra) 5 % dropperette Administer into affected eye(s) 2 (two) times a day. magnesium oxide 400 mg magnesium capsule Take 1 capsule by mouth at bedtime. multivit with minerals/lutein (MULTIVITAMIN 50 PLUS ORAL) Take by mouth. omega 3-qar-uxw-fish oil (Fish OiL) 1,000 (120-180) mg capsule 2 capsules (2,000 mg total) 1 (one) time each day. rosuvastatin (CRESTOR) 5 mg tablet Take 1 tablet (5 mg total) by mouth 1 (one) time each day. sertraline (ZOLOFT) 100 mg tablet Take by mouth 1 (one) time each day. sulfaSALAzine (AZULFIDINE) 500 mg tablet 2 tablets (1,000 mg total) 3 (three) times a day. tiZANidine (ZANAFLEX) 4 mg capsuleIndication s:muscle spasm Take 1 capsule (4 mg total) by mouth 3 (three) times a day if needed for muscle spasms. documented as of this encounter Discharge Disposition Disposition Code Departure Means Destination Home or Self Care documented in this encounter Plan of Treatment Not on file documented as of this encounter Procedures Procedure Name Priority Date/Time Associated Diagnosis Comments MG MAMMO DIGITAL SCREENING W IBRAHIMA BILAT Routine 03/31/2024 10:49 AM EST Encounter for screening mammogram for breast cancer documented in this encounter Results * MG Mammo Digital Screening w Ibrahima bilat (03/31/2024 10:49 AM EST) Anatomical Region Laterality Modality Breast Bilateral Mammography 03/31/2024 11:3 4 AM EST Impressions 03/31/2024 11:39 AM EST No evidence of breast malignancy. BI-RADS CATEGORY: 2 - BENIGN RECOMMENDATION: Screening bilateral mammogram is recommended in 1 year. Mammo Location: [facility], [address] [place] [address], [id number], . -------- FINAL REPORT -------- Dictated By: Soco Rodriguez Dictated Date: 03/31/2024 11:34 ET Assigned Physician: Soco Rodriguez Reviewed and Electronically Signed By: Soco Rodriguez Signed Date: 03/31/2024 11:39 ET Workstation ID: [id number] Transcribed By: Self Edit Transcribed Date: 03/31/2024 11:34 ET Narrative 03/31/2024 11:39 AM EST CLINICAL: 58 years old, Female, routine annual exam. COMPARISON: 03/19/2023, 02/27/2022, 01/28/2021, 02/02/2020 and 12/09/2018 ?? TECHNIQUE: Bilateral MLO and CC views were obtained digitally with 3-D mammogram (digital breast tomosynthesis). Computer-aided detection was utilized in evaluation of this exam (CAD). FINDINGS: There is no evidence of suspicious mass or architectural distortion. ??No worrisome calcifications are evident. ??There has been no significant change from prior exam(s). ??Stable biopsy marker in the left breast. BREAST DENSITY: B - There are scattered areas of fibroglandular density. Procedure Note Soco Rodriguez MD - 03/31/2024 CLINICAL: 58 years old, Female, routine annual exam. COMPARISON: 03/19/2023, 02/27/2022, 01/28/2021, 02/02/2020 and 12/09/2018 TECHNIQUE: Bilateral MLO and CC views were obtained digitally with 3-Dmammogram (digital breast tomosynthesis). Computer-aided detection wasutilized in evaluation of this exam (CAD). FINDINGS: There is no evidence of suspicious mass or architectural distortion. Noworrisome calcifications are evident. There has been no significantchange from prior exam(s). Stable biopsy marker in the left breast. BREAST DENSITY: B - There are scattered areas of fibroglandular density. IMPRESSION: No evidence of breast malignancy. BI-RADS CATEGORY: 2 - BENIGN RECOMMENDATION: Screening bilateral mammogram is recommended in 1 year. Mammo Location: [facility], [address] [place] [address], [id number], . -------- FINAL REPORT -------- Dictated By: Soco Rodriguez Dictated Date: 03/31/2024 11:34 ET Assigned Physician: Soco Rodriguez Reviewed and Electronically Signed By: Soco Rodriguez Signed Date: 03/31/2024 11:39 ET Workstation ID: [id number] Transcribed By: Self Edit Transcribed Date: 03/31/2024 11:34 ET Ml Christianson MD IMG BI PROCEDURES Final Result documented in this encounter Visit Diagnoses Diagnosis Encounter for screening mammogram for breast cancer documented in this encounter Care Teams Summer Counselor Relationship Specialty Start Date End Date Rafat Crane MD [address] [place] [phone] PCP - General Internal Medicine 01/21/24 documented as of this encounter
--- OUTSIDE RECORDS SUMMARY | 2024-04-06 15:40 | XMS_ITS | Data Portability ---
Author Organization [place] - [facility], [facility] Address [address] [place] [address] Care Team Providers Care Avionics Systems Integration Specialist Name Role Phone PATRICIA PINA Primary Care Provider [phone] Assessment Encounter Date Assessment Date Assessment LastModified by Organization Details LastModified Time 02/06/2024 02/06/2024 Assessment: Right wrist de Quervain's tenosynovitis treated by outside providers with cortisone injections, did well with a left first dorsal compartment release a few years ago Plan and now ready to proceed with the same on the right side.: Booking sheet is completed for right wrist first dorsal compartment release to treat recalcitrant de Quervain's tenosynovitis. We have discussed the postoperative recovery course for the recommended surgery. Risks of surgery include but are not limited to: Infection, bleeding, damage normal tissues, need for future surgeries, and recurrent or recalcitrant symptoms after surgery. Questions asked and answered to the patient's satisfaction; surgery to be scheduled with my real estate legal secretary. [email or web address] Not available 02/06/2024 12:23:23 03/29/2024 03/29/2024 A/ status post right wrist first dorsal compartment release performed 02/17/2024. P/ Findings reviewed with the patient. 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 This is expected to improve with time. If these symptoms persist, cortisone injection could be performed in the future. [email or web address] Not available 03/29/2024 10:12:38 Plan of Treatment Reminders Order Date Submit Date Provider Last Modified By Organization Details Last Modified Time Details Appointments None recorded . Lab None recorded . Referral None recorded . Procedures None recorded . Surgeries Dequerva in's release (SURG) 2023 024 [email or web address] [place], [address], [place], [address], 4 16:19:56 Imaging XR, wrist, 3 or more view - room 115 3V R wrist 2023 024 [email or web address], [address], [place], [address], 5 08:20:28 Medication Orders None recorded . Patient TargetsNo targets recorded. Patient Instructions Encounter Date Encounter Id Patient Instructions Last Modified By Organization Details Last Modified Time 03/01/202420161101 work restrictions, upper extremity* caudet3 Not available 03/01/2024 12:41:17 Reason for Referral None Reported. Results Created Date Observation Date Name Description Value Unit Range Abnormal Flag Note LastModifiedBy Organization Detail LastModifiedTime 02/06/2002/06/2024 XR, wrist , 3 or more view [email or web address]:/ [email or web address] ?Encry pted=s hAaTro YD8dLq bEUv6g %2BXZw aYqtaq 0bqfl% 2Fg9IQ a4ajBk vP9nXo QUaueC m3YtLR FvZlgJ JJ8mAn HZtai3 5e6767 AC0Kqb n%2BFU 6qkKiQ trMwF INTERFACE [facility] [address], [place], [address], 02/06/2024 10:54:07 02/06/20 24 02/06/2024 XR, wrist , 3 or more view [email or web address] ?Encry pted=s hAaTro YD8dLq bEUv6g %2BXZw aYqtaq 0bqfl% 2Fg9IQ a4ajBk vP9nXo QUaueC m3YtLR FvZlgJ JJ8mAn HZtai3 1y1090 AC0Kqb n%2BFU 6qkKiQ trMwF INTERFACE [facility] [address], [place], [address], 02/06/2024 10:54:10 Result Notes None recorded. Problems Name Problem SNOMED Code Status Onset Date Resolution Date Notes Provider Name and Address Organization Details Recorded Time Radial styloid tenosynovitis 47513260 Active 2020 Status : 'A'; Not Available [facility] 4 10:56:45 Problem Notes None recorded. Procedures Surgical History Date Name Laterality Status Provider Name and Address Organization Details Recorded Time 4 Sports Shoulder 4&1 cancelled Júnior Constantino MD [address], [place], [address], [facility] [place] [facility] 09/22/2023 10:10:16 Imaging Results Imaging Date Name Status LastModified by Organiz ation Details LastModified Time 02/06/2024 XR, wrist, 3 or more view completed [facility] [address], [place], [address], 02/06/2024 10:54:07 02/06/2024 XR, wrist, 3 or more view completed [facility] [address], [place], [address], 02/06/2024 10:54:10 Procedure Notes None recorded. Medical Equipment None Reported. Allergies Allergen ID Allergen Name Allergen Category Reaction Reaction Severity Criticality Documentation Date Start Date Code Code System Note Provider Name and Address Organization Details Recorded Time 736486 Vibramyci n medicatio n Not available Not available Not available 09/19/2023 5 RxNorm [facility] [place] [facility] [place] [facility] 4 09:56:53 32305 Cipro medicatio n Not available Not available Not available 04/28/2023201056 3 RxNorm Not Available [facility] 4 15:13:11 77754 acetamino phen / oxycodone medicatio n Not available Not available Not available 04/28/2023202018 3 RxNorm Not Available [facility] 4 15:13:11 Medications Name Sig Start Date [...] and Address Organization Details Last Updated DateTime 02/06/2024 170.18 cm 34.5 kg/m2 24338.32 g [facility] 02/06/2024 10:48:31 Date Recorded Body height Body mass index (BMI) Body weight Provider Name and Address Organization Details Last Updated DateTime 03/29/2024 170.18 cm 32.9 kg/m2 00434.4 g [facility] 03/29/2024 09:49:25 Social History None recorded. Functional Status None recorded. Mental Status None recorded. Family History Nothing Reported. Medical History Condition Response Allergies/Hayfever N Coronary Artery Disease N Anxiety/Depression N Breathing or lung disorders N Emphysema N Nerve Disorders N Thyroid Problems N COPD N Pacemaker N Anemia N Kidney/Bladder Problems N Vascular Disease N Heart Trouble N Heart Attack (DE) N Gastrointestinal Disease N Cholesterol Y Diabetes [...] SNOMED-CT Code Diagnosis ICD10 Code Diagnosis Note [id number] Sangita latif MD [facility] [address] [place] [address] 02/06/2024 10:27:25 02/27/2024 08:20:27 Pain of right wrist 1377293128 72158 M25.531 Tenosynovi tis of right radial styloid 7494125462 2778560 M65.4 [id number] Zuly Hebert, OTR/L,CHT [facility] [address] [place] [address] 03/01/2024 10:27:10 03/01/2024 12:29:03 Tenosynovitis of right radial styloid [id number] 6858059 M65.4 This visit was completed today under [...] first dorsal compartmen t release Postoperative visit 0310 17279 Z48.89 Plan: Surgical dressing is removed and [...] with the surgeon at 6 weeks postop. [id number] MD DONG [facility] [address] [place] [address] 03/29/2024 09:34:04 03/29/2024 10:12:51 Tenosynovitis of right radial styloid 7019111299 6282161 M65.4 Radial sty loid tenosynovitis 82856906 M65.4 Health Concerns Section Related Observation LastModified by Organization Detai ls LastModified Time None Recorded Concern Status LastModified by Organization Details LastModified Time None Recorded Advance Directives Directive None Recorded Payers Encounter Date Sequence Insurance Name Policy Number Policy Plummer Covered Member ID Plummer Member ID Guarantor Name 02/06/2024 1 [employer]: [employer] - [employer] German Ulloa [id number] Elodia Ulloa 03/01/2024 1 [employer]: [employer] - [employer] EM[employer]OYEE PROGRAM German Ulloa [id number] Elodia Ulloa 03/29/2024 1 [employer]: [place] - [employer] EM[employer]EE PROGRAM German Ulloa [id number] Elodia Ulloa Notes Date Note Type Note Provider Name and Address Organization Details Recorded Time 02/06/2024 text/html Patient is a 58-year-old female known to me having been treated for left wrist de Quervain's tenosynovitis in 2019 with cortisone injections and ultimately. Here today for initial evaluation at [facility] of right wrist pain. She has been treated with cortisone injections by outside providers; here today to schedule right first dorsal compartment release. did well with same on contralateral side a few years ago [facility]ita Campbell [facility] [address] [facility] [address] [address], [place], [address], [facility] 02/06/2024 12:26:44 03/01/2024 text/html This is a 58-year-old woman who had a right first tenolysis of the first dorsal compartment with Dr. Campbell on 02/17/2024. She presents to the office today at 2 weeks postop to remove the surgical dressing, assess the wounds and advised on the home program. She will also be provided with a Velcro wrist and thumb immobilization orthosis and restrictions with regards to the next 4 weeks until she meets with the surgeon again. Zuly Hebert OTR/L,CHT [address] [address], [place], [address], [facility] 03/01/2024 12:28:46 03/29/2024 text/html Patient is a 58-year-old female [...] wrist at this time. Sangita Campbell MD [address] [facility] [address], [place], [address], [facility] 03/29/2024 10:12:49 OBGyn Episode No OBEpisode recorded.
--- OUTSIDE RECORDS SUMMARY | 2024-04-06 15:40 | XMS_ITS | Clinical Summary ---
Author Organization [facility] Address [address] [place] [address] Phone Care Team Providers Care Glassblower Name Role Phone Rafat Crane MD Primary Care Provider Allergies Active Allergy Reactions Criticality Noted Date Comments Ciprofloxacin Nausea Only 01/26/2024 Doxycycline GI intolerance 01/26/2024 Oxycodone Nausea Only 01/26/2024 Medications rosuvastatin (CRESTOR) 5 mg tablet Take 1 tablet (5 mg total) by mouth 1 (one) time each day. Active sulfaSALAzine (AZULFIDINE) 500 mg tablet 2 tablets (1,000 mg total) 3 (three) times a day. Active lifitegrast (Xiidra) 5 % dropperette Administer into affected eye(s) 2 (two) times a day. Active tiZANidine (ZANAFLEX) 4 mg capsuleIndicatio ns:muscle spasm Take 1 capsule (4 mg total) by mouth 3 (three) times a day if needed for muscle spasms. Active bergamot extract ([place] Bergamot) 500 mg capsule Take 1 tablet by mouth 1 (one) time each day. Active multivit with minerals/lutein (MULTIVITAMIN 50 PLUS ORAL) Take by mouth. Acti ve calcium carbonate-vitami n D3 600 mg-12.5 mcg (500 unit) capsule Take 1 tablet by mouth 1 (one) time each day. Active magnesium oxide 400 mg magnesium capsule Take 1 capsule by mouth at bedtime. Active omega 1-fbo-ohl-fish oil (Fish OiL) 1,000 (120-180) mg capsule 2 capsules (2,000 mg total) 1 (one) time each day. Active ferrous sulfate 324 mg (65 mg elemental iron) EC tablet Take 1 tablet (324 mg total) by mouth 1 (one) time each day. Do not crush, chew, or split. Active sertraline (ZOLOFT) 100 mg tablet Take by mouth 1 (one) time each day. Active folic acid (FOLVITE) 1 mg tablet Take 1 tablet (1 mg total) by mouth 1 (one) time each day. Active Encounters Date Type Department Care Team Description 03/31/2024 10:07 AM EST - 03/31/2024 11:59 PM EST [facility] [address] [phone] Encounter for screening mammogram for breast cancer Discharge Disposition: Home or Self Care 01/27/2024 Telephone Gastroenterology - [address] [phone] Saima Novak MA Results 01/26/2024 8:46 AM EST Anesthesia Event [facility] [address] [place] [phone] Sue Carolina MD 01/26/2024 7:48 AM EST - 01/26/2024 11:59 PM EST Hospital Encounter [facility] [address] [place] [phone] Des Palacios MD Ulcerative colitis, unspecified, without complications (CMS/HCC); Heartburn Discharge Disposition: Home or Self Care from Last 3 Months Surgical History Surgery Date Site/Laterality Comments TUBAL LIGATION NEUROMA SURGERY RIGHT FOOT SHOULDER SURGERY Right BONE SPUR FINGER 3RD DIGIT LT (MIDDLE) SURGERY WRIST SURGERY Left STEREOTACTIC CORE BIOPSY Left Medical History Medical History Date Comments Anemia Osteoarthritis Spondylolysis Hyperlipidemia Ulcerative colitis (CMS/HCC) GERD (gastroesophageal reflux disease) Fatty liver Adenomatous polyp of colon Fibromyalgia Family History Medical History Relation Name Comments Breast cancer Father's Sister Relation Name Status Comments Father's Sister Social History Tobacco Use Types Packs/Day Years Used Date Smoking Tobacco: Never Smokeless Tobacco: Never Tobacco Cessation:Counseling Given: Not Answered Alcohol Use Standard Drinks/Week Comments Never 0 [...] not to disclose 2024 1:23 PM EST Obstetrics History Para Term AB IAB SAB Ectopic Multiple Livin g Live Births 4 Last Filed Vital Signs Vital Sign Reading Time Taken Comments Blood Pressure 134/54 01/26/2024 9:34 AM EST Pulse 73 01/26/2024 9:34 AM EST Temperature 37 ??C (98.6 ??F) 01/26/2024 9:34 AM EST Respiratory Rate 16 01/26/2024 9:34 AM EST Oxygen Saturation 93% 01/26/2024 9:34 AM EST Inhaled Oxygen Concentration - - Weight 95.3 kg (210 lb) 03/31/2024 10:35 AM EST Height 170.2 cm (5' 7 ) 03/31/2024 10:35 AM EST Body Mass Index 32.89 03/31/2024 10:35 AM EST Plan of Treatment Health Maintenance Due Date Last Done Comments Hepatitis B Vaccines (1 of 3 - 19+ 3-dose series) 12/31/1983 Cervical Cancer Screening: Pap Smear 1985 DTaP,Tdap,and Td Vaccines (2 - Td or Tdap) 02/27/2016 02/26/2006 Zoster Vaccines (2 of 2) 02/10/2019 12/16/2018, 11/25 Depression Screening 01/27/2022 HIV Screening 01/27/2022 Hepatitis C Screening 01/27/2022 Social Influencers of Health Screening 01/27/2022 Breast Cancer Screening 03/31/2026 03/31/19 25, 03/19/2023, 02/27/2022, Additional history exists Colorectal Cancer Screening: Colonoscopy 01/25/2034 01/26/2024 RSV Immunization Patients 60+ Years Old (1 - 1-dose 75+ series) 12/31/2039 Pneumococcal Vaccine: Pediatrics (0 to 5 Years) and At-Risk Patients (6 to 64 Years) Aged Out 12/02/2015 No longer eligible based on patient's age to complete this topic Varicella Vaccines Aged Out 12/16/2018 No longer eligible based on patient's age to complete this topic COVID-19 Vaccine Completed 11/19/2023, , 12/26/2021, Additional history exists Influenza Vaccine Completed 11/19/2023, , 12/26/2021, Additional history exists HIB Vaccines Aged Out No longer eligi ble based on patient's age to complete this topic HPV Vaccines Aged Out No longer eligi ble based on patient's age to complete this topic Hepatitis A Vaccines Aged Out No long er eligible based on patient's age to complete this topic IPV Vaccines Aged Out No longer eligi ble based on patient's age to complete this topic MMR Vaccines Aged Out No longer eligi ble based on patient's age to complete this topic Meningococcal ACWY Vaccine Aged Out N o longer eligible based on patient's age to complete this topic RSV Immunization Patients Under 20 months Aged Out No longer eligible based on patient's age to complete this topic Procedures Procedure Name Priority Date/Time Associated Diagnosis Comments MG MAMMO DIGITAL SCREENING W IBRAHIMA BILAT Routine 03/31/2024 10:49 AM EST Encounter for screening mammogram for breast cancer EGD Routine 01/26/2024 9:13 AM EST Heartburn COLONOSCOPY Routine 01/26/2024 9:13 AM EST Ulcerative colitis, unspecified, without complications (CMS/HCC) TISSUE EXAM Routine 01/26/2024 9:06 AM EST Ulcerative colitis, unspecified, without complications (CMS/HCC) Heartburn from Last 3 Months Results * MG Mammo Digital Screening w Ibrahima bilat (03/31/2024 10:49 AM EST) Anatomical Region Laterality Modality Breast Bilateral Mammography 03/31/2024 11:3 4 AM EST Impressions 03/31/2024 11:39 AM EST No evidence of breast malignancy. BI-RADS CATEGORY: 2 - BENIGN RECOMMENDATION: Screening bilateral mammogram is recommended in 1 year. Mammo Location: [facility], [address] [place] [address], [phone], . -------- FINAL REPORT -------- Dictated By: Soco Rodriguez Dictated Date: 03/31/2024 11:34 ET Assigned Physician: Soco Rodriguez Reviewed and Electronically Signed By: Soco Rodriguez Signed Date: 03/31/2024 11:39 ET Workstation ID: [id number] Transcribed By: Self Edit Transcribed Date: 03/31/2024 [...] year. Mammo Location: [facility], [address] [place] [address], [id number], . -------- FINAL REPORT -------- Dictated By: Soco Rodriguez Dictated Date: 03/31/2024 11:34 ET Assigned Physician: Soco Rodriguez Reviewed and Electronically Signed By: Soco Rodriguez Signed Date: 03/31/2024 11:39 ET Workstation ID: [id number] Transcribed By: Self Edit Transcribed Date: 03/31/2024 11:34 ET us Ml Christianson MD [facility] [place] BI PROCEDURES Final Result * COLONOSCOPY Anesthesia - MAC; [facility] ENDOSCOPY (01/26/2024 9:13 AM EST) Anatomical Region Laterality Modality Endoscopy 01/26/2024 8:57 AM EST Impressions 01/26/2024 9:15 AM EST - The entire examined colon is normal. ? - Biopsies were taken with a cold forceps for ? histology in the rectum, in the sigmoid colon and in ? the descending colon. Recommendation: ?- Patient has a contact number available for ? emergencies. The signs and symptoms of potential ? delayed complications were discussed with the patient. ? Return to normal activities tomorrow. Written ? discharge instructions were provided to the patient. ? - Resume previous diet. ? - Continue present medications. ? - Await pathology results. ? - Repeat colonoscopy in 3 years for surveillance. Narrative 01/26/2024 9:15 AM EST [facility] Patient Name: Elodia Ulloa Procedure Date: 01/26/2024 8:57 AM Date of : 1965 Age: 58 Gender: Female Note Status: Finalized Attending MD: Des Palacios MD, Procedure Date No Time: 01/26/2024 Procedure: ? Colonoscopy Indications: ? High risk colon cancer surveillance: Ulcerative left ? sided colitis of 8 (or more) years duration Providers: ? Des Palacios MD Referring MD: ?Des Palacios MD Medicines: ? Monitored Anesthesia Care Complications: ? No immediate complications. Estimated Blood Loss: ? Estimated blood loss: none. Procedure: ? After I obtained informed consent, the scope was ? passed under direct vision. Throughout the procedure, ? the patient's blood pressure, pulse, and oxygen ? saturations were monitored continuously. The ? Colonoscope was introduced through the anus and ? advanced to the cecum, identified by appendiceal ? orifice and ileocecal valve. The colonoscopy was ? performed without difficulty. The patient tolerated ? the procedure well. The quality of the bowel ? preparation was good. Findings: ?The entire examined colon appeared normal. Examined ? under NBI as well. ? Biopsies were taken with a cold forceps in the rectum, ? in the sigmoid colon and in the descending colon for ? histology. Procedure Code(s): ? --- Professional --- ? 86103, Colonoscopy, flexible; with biopsy, single or ? multiple Diagnosis Code(s): ? --- Professional --- ? K51.50, Left sided colitis without complications CPT copyright 2020 [employer]. All rights reserved. The codes documented in this report are preliminary and upon environmental service aide review may be revised to meet current compliance requirements. MD Des Pleitez MD 01/26/2024 9:15:05 AM This report has been signed electronically.Des Palacios MD Number of Addenda: 0 Note Initiated On: 01/26/2024 8:57 AM Scope In: Scope Out: ? Endoscopy Department at [facility] - [address] [place] [address], ? [place] [phone] Procedure Note Des Palacios MD - 01/26/2024 [facility] GI Patient Name: Elodia Ulloa Procedure Date: 01/26/2024 8:57 AM Date of : 1965 Age: 58 Gender: Female Note Status: Finalized Attending MD: Des Palacios MD, Procedure Date No Time: 01/26/2024 Procedure: Colonoscopy Indications: High risk colon cancer surveillance: Ulcerativeleft sided colitis of 8 (or more) years duration Providers: Des Palacios MD Referring MD: Des Palacios MD Medicines: Monitored Anesthesia Care Complications: No immediate complications. Estimated Blood Loss: Estimated blood loss: none. Procedure: After I obtained informed consent, the scope was passed under direct vision. Throughout theprocedure, the patient's blood pressure, pulse, and oxygen saturations were monitored continuously. The Colonoscope was introduced through the anus and advanced to the cecum, identified by appendiceal orifice and ileocecal valve. The colonoscopy was performed without difficulty. The patient tolerated the procedure well. The quality of the bowel preparation was good. Findings: The entire examined colon appeared normal. Examined under NBI as well. Biopsies were taken with a cold forceps in therectum, in the sigmoid colon and in the descending colonfor histology. Procedure Code(s): --- Professional --- 58910, Colonoscopy, flexible; with biopsy, singleor multiple Diagnosis Code(s): --- Professional --- K51.50, Left sided colitis without complications CPT copyright 2020 [employer]. All rights reserved. The codes documented in this report are preliminary and upon environmental service aide reviewmay be revised to meet current compliance requirements. MD Des Pleitez MD 01/26/2024 9:15:05 AM This report has been signed electronically.Des Palacios MD Number of Addenda: 0 Note Initiated On: 01/26/2024 8:57 AM Scope In: Scope Out: Endoscopy Department at [facility] - [address] [place] [phone] IMPRESSION: - The entire examined colon is normal. - Biopsies were taken with a cold forceps for histology in the rectum, in the sigmoid colon andin the descending colon. Recommendation: - Patient has a contact number available for emergencies. The signs and symptoms of potential delayed complications were discussed with thepatient. Return to normal activities tomorrow. Written discharge instructions were provided to thepatient. - Resume previous diet. - Continue present medications. - Await pathology results. - Repeat colonoscopy in 3 years for surveillance. us Des Palacios MD GI~PROCEDURE ORDERABLES Final R esult * EGD Anesthesia - MAC; [facility] ENDOSCOPY (01/26/2024 9:13 AM EST) Anatomical Region Laterality Modality Endoscopy 01/26/2024 8:38 AM EST Impressions 01/26/2024 8:57 AM EST - Normal esophagus. ? - Normal stomach. ? - Normal examined duodenum. ? - No specimens collected. Recommendation: ?- Patient has a contact number available for ? emergencies. The signs and symptoms of potential ? delayed complications were discussed with the patient. ? Return to normal activities tomorrow. Written ? discharge instructions were provided to the patient. ? - Resume previous diet. ? - Continue present medications. ? - Follow an antireflux regimen indefinitely. Narrative 01/26/2024 8:57 AM EST [facility] Patient Name: Elodia Ulloa Procedure Date: 01/26/2024 8:38 AM Date of : 1965 Age: 58 Gender: Female Note Status: Finalized Attending MD: Des Palacios MD, Procedure Date No Time: 01/26/2024 Procedure: ? Upper GI endoscopy Indications: ? Heartburn Providers: ? Des Palacios MD Referring MD: ?Des Palacios MD Medicines: ? Monitored Anesthesia Care Complications: ? No immediate complications. Estimated Blood Loss: ? Estimated blood loss: none. Procedure: ? After obtaining informed consent, the endoscope was ? passed under direct vision. Throughout the procedure, ? the patient's blood pressure, pulse, and oxygen ? saturations were monitored continuously. The Endoscope ? was introduced through the mouth, and advanced to the ? third part of duodenum. The upper GI endoscopy was ? accomplished without difficulty. The patient tolerated ? the procedure well. Findings: ?The esophagus was normal. ? The stomach was normal. ? The examined duodenum was normal. Procedure Code(s): ? --- Professional --- ? 72448, Esophagogastroduodenoscopy, flexible, ? transoral; diagnostic, including collection of ? specimen(s) by brushing or washing, when performed ? (separate procedure) Diagnosis Code(s): ? --- Professional --- ? R12, Heartburn CPT copyright 2020 [employer]. All rights reserved. The codes documented in this report are preliminary and upon environmental service aide review may be revised to meet current compliance requirements. MD Des Pleitez MD 01/26/2024 8:57:28 AM This report has been signed electronically.Des Palacios MD Number of Addenda: 0 Note Initiated On: 01/26/2024 8:38 AM Scope In: Scope Out: ? Endoscopy Department at [facility] - [address] [place] [address], ? [place] [address] Procedure Note Des Palacios MD - 01/26/2024 [facility] GI Patient Name: Elodia Ulloa Procedure Date: 01/26/2024 8:38 AM Date of : 1965 Age: 58 Gender: Female Note Status: Finalized Attending MD: Des Palacios MD, Procedure Date No Time: 01/26/2024 Procedure: Upper GI endoscopy Indications: Heartburn Providers: Des Palacios MD Referring MD: Des Palacios MD Medicines: Monitored Anesthesia Care Complications: No immediate complications. Estimated Blood Loss: Estimated blood loss: none. Procedure: After obtaining informed consent, the endoscope was passed under direct vision. Throughout theprocedure, the patient's blood pressure, pulse, and oxygen saturations were monitored continuously. TheEndoscope was introduced through the mouth, and advanced tothe third part of duodenum. The upper GI endoscopy was accomplished without difficulty. The patienttolerated the procedure well. Findings: The esophagus was normal. The stomach was normal. The examined duodenum was normal. Procedure Code(s): --- Professional --- 92014, Esophagogastroduodenoscopy, flexible, transoral; diagnostic, including collection of specimen(s) by brushing or washing, when performed (separate procedure) Diagnosis Code(s): --- Professional --- R12, Heartburn CPT copyright 2020 [employer]. All rights reserved. The codes documented in this report are preliminary and upon environmental service aide reviewmay be revised to meet current compliance requirements. MD Des Pleitez MD 01/26/2024 8:57:28 AM This report has been signed electronically.Des Palacios MD Number of Addenda: 0 Note Initiated On: 01/26/2024 8:38 AM Scope In: Scope Out: Endoscopy Department at [facility] - [address] [place] [phone] IMPRESSION: - Normal esophagus. - Normal stomach. - Normal examined duodenum. - No specimens collected. Recommendation: - Patient has a contact number available for emergencies. The signs and symptoms of potential delayed complications were discussed with thepatient. Return to normal activities tomorrow. Written discharge instructions were provided to thepatient. - Resume previous diet. - Continue present medications. - Follow an antireflux regimen indefinitely. Des Palacios MD GI~PROCEDURE ORDERABLES Final R esult * Tissue exam (01/26/2024 9:06 AM EST) Final Diagnosis A. Colon, left/descending, biopsy: Colonic mucosa with mild crypt architectural distortion; otherwise no diagnostic histopathologic change. No granulomata and no dysplasia identified. B. Colon, sigmoid, biopsy: Colonic mucosa with mild crypt architectural distortion including focal crypt dropout; otherwise no diagnostic histopathologic change. No granulomata and no dysplasia identified. C. Colon, rectum, biopsy: Colonic mucosa without diagnostic histopathologic change. No granulomata and no dysplasia identified. 01/27/2024 9:37 AM EST [facility] Gross Description A. Large Intestine, Left/Descending Colon, biopsy: Labeled descending colon biopsy . Received in formalin are three irregular arguelles mucosal tissue fragments, ranging from 0.2 cm to 0.4 cm in greatest dimension, which are wrapped in paper and submitted in toto in one cassette, three pieces, multiple levels on one slide. B. Large Intestine, Sigmoid Colon, biopsy: Labeled sig colon biopsy . Received in formalin are two irregular arguelles mucosal tissue fragments, each measuring approximately 0.3 cm in greatest dimension, which are wrapped in paper and submitted in toto in one cassette, two pieces, multiple levels on one slide. C. Large Intestine, Rectum, biopsy: Labeled LI rectum biopsy . Received in formalin are three irregular arguelles mucosal tissue fragments, ranging from 0.1 cm to 0.4 cm in greatest dimension, which are wrapped in paper and submitted in toto in one cassette, three pieces, multiple levels on one slide. RAFIQ 01/27/2024 9:37 AM EST [facility] Disclaimer Unless otherwise specified, all tissue is 10% NB formalin fixed and paraffin embedded. 01/27/2024 9:37 AM EST [facility] Tissue Descending colon structure / Unknown 01/26/2024 9:06 AM EST 01/26/2024 10:50 AM EST Tissue specimen (specimen) Sigmoid colon structure / Unknown 01/26/2024 9:08 AM EST 01/26/2024 10:50 AM EST Tissue specimen (specimen) Rectum structure / Unknown 01/26/2024 9:11 AM EST 01/26/2024 10:50 AM EST Des Palacios MD LAB PATHOLOGY ORDERABLES Final Result [facility] [address] [place] [address], from Last 3 Months Insurance [facility] Care Teams Glassblower Relationship Specialty Start Date End Date Rafat Crane MD [address] [place] [phone] PCP - General Internal Medicine 01/21/24
== END 2024-04-06 15:35 | disposition home or self-care (01) ==
PROVIDERS: PCP Internal Medicine; Visit Provider Student in an Organized Health Care Education/Training Program
DX: M45.A0 Non-radiographic axial spondyloarthritis of unspecified sites in spine (principal); Z79.620 Long term (current) use of immunosuppressive biologic
CPT/HCPCS: 99214

== ENCOUNTER 2024-05-19 13:12 | Outpatient (RCR) | payer BC, SELFPAY ==
[2024-05-19 13:17] VITALS: BP 142/79; PULSE 88; RESP 16; TEMP 36.9; O2SAT 95
[2024-05-19 13:51] LABS: MANUAL DIFF FLAG NO
[2024-05-19 13:54] LABS: Basophils Percent Auto 0.6 % (0-2); Eosinophils Absolute Auto 0.1 X10*3/uL (0.0-0.4); Hematocrit 42.8 % (37.0-47.0); Hemoglobin 13.8 g/dl (12.0-16.0); Imm Gran Abs Auto 0.02 X10*3/uL (0.00-0.03); Imm Gran Pct Auto 0.6 % (0.0-0.4); Lymphocytes Absolute Auto 0.8 X10*3/uL (1.2-4.9); Lymphocytes Percent Auto 22.9 % (20-40); Mean Corpuscular HGB Conc 32.2 g/dl (31.0-35.0); Mean Corpuscular Hemoglobin 31.9 pg (27.0-33.0); Mean Corpuscular Volume 99.1 fL (80.0-98.0); Mean Platelet Volume 9.6 fL (9.4-12.3); Monocytes Absolute Auto 0.3 X10*3/uL (0.1-1.2); Monocytes Percent Auto 8.3 % (2-11); Neutrophils Absolute Auto 2.3 x10*3/uL (2.0-8.3); Neutrophils Percent Auto 65.6 % (45-73); Platelet Count 329 X10*3/uL (160-400); Red Blood Count 4.32 X10*6/uL (4.20-5.50); Red Cell Distribution Width 12.5 % (11.0-16.0); White Blood Count 3.5 X10*3/uL (4.8-10.8)
[2024-05-19] MEDS: Ustekinumab 520 MG in 0.9 % Sodium Chloride 146 ML 250 MG IV (13:55)
[2024-05-19 14:08] LABS: Alanine Aminotransferase 26 U/L (0-31); Albumin Level 4.8 g/dL (3.5-5.0); Alkaline Phosphatase 73 U/L (39-117); Anion Gap 10 (12-20); Aspartate Amino Transferase 27 U/L (5-31); Bilirubin Total 0.4 mg/dL (0.0-1.0); Blood Urea Nitrogen 16 mg/dL (9-16); C Reactive Protein 0.73 mg/dL (< or = 0.50); Calcium 9.7 mg/dL (8.4-10.2); Carbon Dioxide 28 mmol/L (22-29); Chloride 108 mmol/L (96-108); Estimated Glomerular Filt Rate > 60; Glucose Random 99 mg/dL (60-115); Potassium 4.4 mmol/L (3.3-5.1); Sodium 142 mmol/L (135-145); Total Protein 7.6 g/dL (6.5-8.0)
[2024-05-19 14:32] LABS: HBS Num1 11.05 mIU/mL (0-7.99); HBc Num1 0.12 S/CO (0.00-0.79); HBsAGNum1 0.35 S/CO (0.00-0.99); Hepatitis B Core Antibody Nonreactive (Nonreactive); Hepatitis B Surface Antigen Negative (Negative); ~HepC Num1 0.27 S/CO (0.00-0.79); ~Hepatitis C Antibody Nonreactive (Nonreactive)
[2024-05-19 14:44] LABS: HIV AB/AG Nonreactive (Nonreactive); HIV Num 1 0.05 S/CO (0.00-0.99)
[2024-05-20 04:49] LABS: HBS Num2 11.29 mIU/mL (0-7.99); HBS Num3 11.38 mIU/mL (0-7.99); ~Hepatitis B Surface Antibody GRAYZONE (Nonreactive)
== END 2024-05-19 15:16 | disposition home or self-care (01) ==
LOC: HO.INF 13:12
PROVIDERS: PCP Internal Medicine; Visit Provider Student in an Organized Health Care Education/Training Program
DX: M45.A0 Non-radiographic axial spondyloarthritis of unspecified sites in spine (principal); K51.90 Ulcerative colitis, unspecified, without complications
CPT/HCPCS: 36415; 80053; 85025; 86140; 86481; 86704; 86706; 86803; 87340; 87389; 96365; J3358

== ENCOUNTER → 2024-05-28 12:39 | Outpatient (BNVA) | payer BC, SELFPAY | PROVIDERS: PCP Internal Medicine; Visit Provider Student in an Organized Health Care Education/Training Program ==

== ENCOUNTER 2024-09-22 10:49 | Outpatient (AMB) | payer BC, SELFPAY ==
--- NOTE | 2024-09-22 10:59 | MHC.OFFVIS ---
Vital Signs 09/22/24 11:12 Height 5 ft 7 in Weight 201 lb 15.095 oz BMI 31.6 BP 142/84 H Blood Pressure Location Lt brachial Position Sitting Pulse 93 Pulse Source Pulse Oximeter Pulse Oximetry (%) 94 Oxygen Delivery Method Room Air Intake Visit Reasons: AxSpA Intake Note: Patient presents for AxSpA follow up. Patient stated she had a nausea and vomiting and felt worse while taking Stelara. Patient stop taking it. Allergies doxycycline Allergy (Intermediate, Verified 09/22/24 11:07) Stomach Upset pregabalin (From Lyrica) Adverse Reaction (Severe, Verified 09/22/24 11:07) Fatigued ciprofloxacin (From Cipro) Adverse Reaction (Intermediate, Verified 09/22/24 11:07) Stomach Upset duloxetine (From Cymbalta) Adverse Reaction (Intermediate, Verified 09/22/24 11:07) Nausea etanercept (From Enbrel) Adverse Reaction (Intermediate, Verified 09/22/24 11:07) Anxiety hydromorphone (From Dilaudid) Adverse Reaction (Intermediate, Verified 09/22/24 11:07) Confusion morphine Adverse Reaction (Intermediate, Verified 09/22/24 11:07) Confusion ustekinumab (From Stelara) Adverse Reaction (Verified 09/22/24 11:07) Nausea and Vomiting Medication List - Last Reconciled 09/22/24 by Olga Robles MD bergamot extract ([place] Bergamot) mg PO cetirizine (All Day Allergy (cetirizine)) 10 mg PO DAILY PRN cholecalciferol (vitamin D3) 125 mcg PO DAILY fluticasone propionate 50 mcg/actuation (Allergy Relief (fluticasone)) 2 sprays intranasal DAILY folic acid 1 mg PO DAILY lifitegrast 5% (Xiidra) drps ophthalmic (eye) multivitamin (Daily Multi-Vitamin tablet) 1 tab PO DAILY omega 8-okx-lsa-fish oil 60-90-500 mg (Fish Oil) 2 caps PO DAILY omeprazole 40 mg PO DAILY ondansetron HCl 4 mg PO Q8H rosuvastatin 5 mg PO DAILY sertraline 100 mg PO DAILY sulfasalazine 1,000 mg PO TID tizanidine 4 mg PO BEDTIME vit B comp with C-calcium carb 300 mg-150 mg calcium (B-Complex Plus Vitamin C (and calcium)) 1 tab PO DAILY HPI Comments Details: Patient is a 58-year-old female with ulcerative colitis complicated by non radiographic axial spondylitis, hyperlipidemia, fibromyalgia and polyarticular osteoarthritis here today for follow up Interval History: Patient last seen 04/06/24 with me - Started on Stelara Today, - Did not tolerate Stelara, had GI upset including nausea with the infusion. Does not want to continue with it - Continues to complain of whole body pain specifically neck, back, knees and legs - requesting disability paperwork to be filled out Rheumatologic History: Non radiographic axial spondyloarthritis dx 01/2023. Was already in [facility] for UC Enbrel 02/2023 DC 5 03/2023 due to increased anxiety & hypertension Humira 07/2023 DC 10/2023 ineffective Rinvoq sample for one-month 10/2023, only helped with fatigue Stelara 03/2024 - did not tolerate Current Rheumatology Medication(s): Stelara (self discontinued) [facility] Medical History Non-radiographic axial spondyloarthritis Wrist pain, right De Quervain's tenosynovitis, right FPC (current) use of immunosuppressive biologic History of immunosuppressive therapy Osteoarthritis involving multiple joints on both sides of body DDD (degenerative disc disease), cervical Osteoporosis screening History of ulcerative colitis Inflammatory bowel arthritis Rosacea Osteoarthritis Nonalcoholic fatty liver Neck pain Ulcerative colitis Fibromyalgia Current mild episode of major depressive disorder without prior episode Hypercholesteremia Paresthesia Surgical History H/O wrist surgery History of surgery Family History Mother Arthritis Other Hyperlipidemia, unspecified Social History Household Members: Spouse Household Members Other:: cat Alcohol intake: never Patient Tobacco Use Status: Never used Tobacco Current occupational status: employed 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 Review of Systems Const Details: Review of Systems Constitutional: Denies fever, chills, weight loss ENT: Denies vision changes, eye pain or eye redness, dental caries, dry mouth GI: Denies nausea, vomiting, diarrhea, abdominal pain, change in BM Pulm: Denies SOB, JONES, hemoptysis, wheezing Cards: Denies chest pain, palpitations Skin: Denies Raynaud's, rash, nail changes, photosensitivity, AUDITOR IN CHARGE: Denies headaches, weakness, paresthesias, recurrent falls MSK: as per HPI All other systems reviewed and are unremarkable except noted above Physical Exam Exam Exam: Vital signs reviewed Physical Examination CONSTITUITIONAL Patient alert and cooperative. 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 No deformities noted. ?No synovitis noted to the MCPs, PIPs or DIPs. ?No tenderness to palpation of these joints. Wrists: ?Full range of motion at the wrists without pain. ?No tenderness to palpation or synovitis noted to the wrists. Elbows: Full range of motion without pain. No tenderness, weakness, swelling, increased warmth or erythema. Shoulders: Full range of motion without pain. No tenderness, weakness, swelling, increased warmth or erythema. Hips: Full range of motion without pain. Hip bursa: Tenderness to palpation Knees: ?Full range of motion. ?No tenderness, swelling, increased warmth or erythema.?No effusion or crepitations Ankles: Full range of motion. ?No tenderness, swelling, increased warmth or erythema.? Feet: ?Negative squeeze test. ?No tenderness to palpation or swelling of the MTPs. Tender points:?Tenderness to palpation of the bilateral trapezius, supraspinatus, greater trochanters, anterior costochondral junctions, bilateral gluteal areas, bilateral suboccipital muscle insertions Patient has abnormal modified Vince's test SKIN Skin intact without rashes. Vital Signs: Last Vital Signs Pulse 93 09/22/24 11:12 BP 142/84 H 09/22/24 11:12 Pulse Ox 94 09/22/24 11:12 Oxygen Delivery Method Room Air 09/22/24 11:12 BMI result Body Mass Index 31.6 Results Reviewed Results Reviewed: 09/13/24 [facility] WBC 4.6 Hb 13.6 Plt 347 BUN 12 Cr 0.63 eGFR 102 AST 27 ALT 39 H ESR 11 CRP 7 T spot Negative Assessment & Plan Assessment & Plan (1) Non-radiographic axial spondyloarthritis: Comment: dx 01/2023. Was already in [facility] for UC Enbrel 02/2023 DC 5 03/2023 due to increased anxiety & hypertension Humira 07/2023 DC 10/2023 ineffective Rinvoq sample for one-month 10/2023, only helped with fatigue Stelara 04/2024 - medication side effect Code(s): M45.A0 - Non-radiographic axial spondyloarthritis of unspecified sites in spine Category: Medical Plan: #Non radiographic aankylosing spondyloarthritis Patient is a 58-year-old female with non radiographic ankylosing spondyloarthritis affecting all levels of her spine from her C-spine to her L/S spine. Failed Enbrel, Humira and now Stelara. Not a candidate for IL17 inhibitors because of her UC hx Will try to get PA for Rinvoq again Plan - Rinvoq 15mg PO daily - RTC 6 months - Labs before visit: CBC, CMP, ESR, CRP, Hepatitis panel Plan I spent 40 minutes reviewing the record and labs, taking a history, examining the patient, discussing the treatment plan, filling out disability paperwork and documenting in the medical record Coding Level of Care Code Est Pt Level 5 (04512) Complex EM visit Add On G2211 Diagnoses Non-radiographic axial spondyloarthritis M45.A0
[2024-09-22 11:12] VITALS: BP 142/84; PULSE 93; O2SAT 94; BMI 31.6
--- OUTSIDE RECORDS SUMMARY | 2024-09-22 11:47 | XMS_ITS | Clinical Summary ---
Author Organization [facility] Address [address] [place] [address] Phone Care Team Providers Care Supervisor Burling And Joining Name Role Phone Rafat Crane MD Primary Care Provider [phone] Allergies Active Allergy Reactions Criticality Noted Date [...] needed for muscle spasms. Active bergamot extract ([place] Bergamot) 500 mg capsule Take 1 tablet by mouth 1 (one) time each day. Active multivit with minerals/lutein (MULTIVITAMIN 50 PLUS ORAL) Take by mouth. Acti ve calcium carbonate-vitami n D3 600 mg-12.5 mcg (500 unit) capsule Take 1 tablet by mouth 1 (one) time each day. Active magnesium oxide 400 mg magnesium capsule Take 1 capsule by mouth at bedtime. Active omega 7-miz-yhg-fish oil (Fish OiL) 1,000 (120-180) mg capsule [...] mouth 1 (one) time each day. Active Surgical History Surgery Date Site/Laterality Comments TUBAL LIGATION NEUROMA SURGERY RIGHT FOOT SHOULDER SURGERY Right BONE SPUR FINGER 3RD DIGIT LT (MIDDLE) SURGERY WRIST SURGERY Left STEREOTACTIC CORE BIOPSY Left Medical History Medical History Date Comments Anemia Osteoarthritis Spondylolysis Hyperlipidemia Ulcerative colitis (CMS/HCC V24, CMS/HCC V28) GERD (gastroesophageal reflux disease) Fatty liver Adenomatous [...] 73 01/26/2024 9:34 AM EST Temperature 37 C (98.6 F) 01/26/2024 9:34 AM EST Respiratory Rate 16 [...] (2 - Td or Tdap) 02/27/2016 02/26/2006 Pneumococcal Vaccine: 50+ Years (2 of 2 - PCV) 12/01/2016 12/02/2015 Zoster Vaccines (2 of 2) 02/10/2019 12/16/2018, 11/25 HIV Screening 01/27/2022 Hepatitis C Screening 01/27/2022 Social Influencers of Health Screening 01/27/2022 Depression Screening 02/25/2024 COVID-19 Vaccine (8 - Pfizer risk season) 2024 11/19/2023, 12/10/2022, 12/26/2021, Additional history exists Influenza Vaccine (#1) 2024 , 12/10/2022, 12/26/2021, Additional history exists Breast Cancer Screening 03/31/2026 03/31/19, 03/19/2023, 02/27/2022, Additional history exists Colorectal Cancer Screening: Colonoscopy 01/25/2034 01/26/2024 RSV Immunization Adult Patients (1 - 1-dose 75+ series) 12/31/2039 Varicella Vaccines Aged Out 12/16/2018 No longer eligible based on patient's age to complete this topic HIB Vaccines Aged Out No longer eligi [...] patient's age to complete this topic Meningococcal B Vaccine Aged Out No l onger eligible based on patient's age to complete this topic RSV Immunization Patients Under 20 months Aged Out No longer eligible based on patient's age to complete this topic Procedures Procedure Name Priority Date/Time Associated Diagnosis Comments MG MAMMO DIGITAL SCREENING W IBRAHIMA BILAT Routine 03/31/2024 10:49 AM EST Encounter for screening mammogram for breast cancer COLONOSCOPY Routine 01/26/2024 9:13 AM EST Ulcerative colitis, unspecified, without complications ([facility] V24, [facility] V28) from Last 3 Months or Most Recently Relevant to Health Maintenance Results * MG Mammo Digital Screening w Ibrahima bilat (03/31/2024 10:49 AM EST) Anatomical Region Laterality Modality Breast Bilateral Mammography 03/31/2024 11:3 4 AM EST Impressions 03/31/2024 11:39 AM EST No evidence of breast malignancy. BI-RADS CATEGORY: 2 - BENIGN RECOMMENDATION: Screening bilateral mammogram is recommended in 1 year. Mammo Location: [facility], [address] [place] [address], [id number], . -------- FINAL REPORT -------- Dictated By: Soco Rodriguez Dictated Date: 03/31/2024 11:34 ET Assigned Physician: Soco Rodriguez Reviewed and Electronically Signed By: Soco Rodriguez Signed Date: 03/31/2024 11:39 ET Workstation ID: [id number] Transcribed By: Self Edit Transcribed Date: 03/31/2024 [...] evidence of suspicious mass or architectural distortion. No worrisome calcifications are evident. There has been no significant change from prior exam(s). Stable biopsy marker in [...] year. Mammo Location: [facility], [address] [place] [address], [facility], . -------- FINAL REPORT -------- Dictated By: Soco Rodriguez Dictated Date: 03/31/2024 11:34 ET Assigned Physician: Soco Rodriguez Reviewed and Electronically Signed By: Soco Rodriguez Signed Date: 03/31/2024 11:39 ET Workstation ID: [id number] Transcribed By: Self Edit Transcribed Date: 03/31/2024 11:34 ET Ml Christianson MD [facility] BI PROCEDURES Final Result * COLONOSCOPY Anesthesia - MAC; [facility] ENDOSCOPY (01/26/2024 9:13 AM EST) Anatomical Region Laterality Modality Endoscopy 01/26/2024 8:57 AM EST Impressions 01/26/2024 9:15 AM EST - The entire examined colon is normal. - Biopsies were taken with a cold forceps for histology in the rectum, in the sigmoid colon and in the descending colon. Recommendation: - Patient has a contact number available for emergencies. The signs and symptoms of potential delayed complications were discussed with the patient. Return to normal activities tomorrow. Written discharge instructions were provided to the patient. - Resume previous diet. - Continue present medications. - Await pathology results. - Repeat colonoscopy in 3 years for surveillance. Narrative 01/26/2024 9:[address] [facility] GI Patient Name: Elodia Ulloa Procedure Date: 01/26/2024 8:57 AM Date of : 1965 Age: 58 Gender: Female Note Status: Finalized Attending MD: Des Palacios MD, Procedure Date No Time: 01/26/2024 Procedure: Colonoscopy Indications: High risk colon cancer surveillance: Ulcerative left sided colitis of 8 (or more) years duration Providers: Des Palacios MD Referring MD: Des Palacios MD Medicines: Monitored Anesthesia Care Complications: No immediate complications. Estimated Blood Loss: Estimated blood loss: none. Procedure: After I obtained informed consent, the scope was passed under direct vision. Throughout the procedure, the patient's blood pressure, pulse, and oxygen [...] with a cold forceps in the rectum, in the sigmoid colon and in the descending colon for histology. Procedure Code(s): --- Professional --- 77715, Colonoscopy, flexible; with biopsy, single or multiple Diagnosis Code(s): --- Professional --- K51.50, Left sided colitis without complications CPT copyright 2020 [employer]. All rights reserved. The codes documented in this report are preliminary and upon parole hearing officer review may be revised to meet current compliance requirements. MD Des Pleitez MD 01/26/2024 9:15:05 AM This report has been signed electronically.Des Palacios MD Number of Addenda: 0 Note Initiated On: 01/26/2024 8:57 AM Scope In: Scope Out: Endoscopy Department at [facility] - [address] [place] [id number] Procedure Note Des Palacios MD - 01/26/2024 [facility] GI Patient Name: Elodia Ulloa Procedure Date: [...] colonfor histology. Procedure Code(s): --- Professional --- 00202, Colonoscopy, flexible; with biopsy, singleor multiple Diagnosis Code(s): --- Professional --- K51.50, Left sided colitis without complications CPT copyright 2020 [employer]. All rights reserved. The codes documented in this report are preliminary and upon parole hearing officer reviewmay be revised to meet current compliance requirements. MD Des Pleitez MD 01/26/2024 9:15:05 AM This report has been signed electronically.Des Palacios MD Number of Addenda: 0 Note Initiated On: 01/26/2024 8:57 AM Scope In: Scope Out: Endoscopy Department at [facility] - [address] [place] [phone] IMPRESSION: - The entire examined colon is [...] Repeat colonoscopy in 3 years for surveillance. Des Palacios MD GI~PROCEDURE ORDERABLES Final R esult from Last 3 Months or Most Recently Relevant to Health Maintenance Insurance [facility] Care Teams Supervisor Burling And Joining Relationship Specialty Start Date End Date Rafat Crane MD [address] [place] [address] PCP - General Internal Medicine 01/21/24
== END 2024-09-22 11:49 | disposition home or self-care (01) ==
LOC: HO.RHE 10:49
PROVIDERS: PCP Internal Medicine; Visit Provider Student in an Organized Health Care Education/Training Program
DX: M45.A Non-radiographic axial spondyloarthritis (principal)
CPT/HCPCS: 99215